=== PATIENT | female | born 1955 | race Caucasian/White ===

== ENCOUNTER 2023-02-19 12:55 | Outpatient (CLI) | payer OTHER, SELFPAY ==
--- NOTE | 2023-02-19 13:00 | CRLHL7_ITS ---
For Patients: As a result of the Century Cures Act, medical imaging exams and procedure reports are released immediately into your electronic medical record. You may view this report before your referring provider. If you have questions, please contact your health care provider. Indication: Left 5th bunionette deformity. Technique: Left foot three views. Comparison: Left foot radiographs 09/12/2018. Findings: Prior resection of the lateral head of the 5th metatarsal. Mild to moderate degenerative changes greatest in the midfoot. Calcaneal enthesophytes. No discrete lytic or erosive osseous changes. No acute or other osseous abnormality. Soft tissues as imaged are unremarkable. Impression: Left foot degenerative changes greatest in the midfoot. Dictated by Carlos Queen MD @ 02/19/2023 9:07:58 PM (Electronically Signed)
--- NOTE | 2023-02-19 13:15 | CRLHL7_ITS ---
For Patients: As a result of the Century Cures Act, medical imaging exams and procedure reports are released immediately into your electronic medical record. You may view this report before your referring provider. If you have questions, please contact your health care provider. Indication: Right foot suspected rheumatoid nodule. Technique: Right foot three views. Comparison: 09/12/2018. Findings: Stable appearing bunionectomy changes with hardware in the distal 1st metatarsal. Alignment of the 1st metatarsal phalangeal joint is unchanged. Mild to moderate degenerative changes greatest at the 1st metatarsophalangeal joint and midfoot. Calcaneal enthesophytes. No discrete lytic or erosive osseous changes. No acute or other osseous abnormality. Soft tissues as imaged are unremarkable. Impression: Right foot degenerative changes. Dictated by Carlos Queen MD @ 02/19/2023 9:06:18 PM (Electronically Signed)
== END 2023-02-19 12:56 | disposition home or self-care (01) ==
PROVIDERS: PCP Family Medicine; Visit Provider Podiatrist
DX: M21.622 Bunionette of left foot (principal); M79.9 Soft tissue disorder, unspecified
CPT/HCPCS: 73630

== ENCOUNTER 2023-06-04 09:25 | Day surgery (SDC) | payer OTHER, SELFPAY ==
[2023-06-04] MEDS: LACTATED RINGERS 1000 ML 1,000 ML 100 ML IV (09:50)
[2023-06-04] MEDS: SODIUM CHLORIDE 0.9 % (FLUSH) 10 ML SYRINGE IVF (09:50)
[2023-06-04 09:59] VITALS: BP 189/106; PULSE 96; RESP 18; TEMP 36.6; O2SAT 95; BMI 44.1
[2023-06-04] MEDS: BUPIVACAINE 0.5% 30 ML 40 ML INJECTION (11:01)
--- NOTE | 2023-06-04 11:13 | CRLHL7_ITS ---
For Patients: As a result of the Century Cures Act, medical imaging exams and procedure reports are released immediately into your electronic medical record. You may view this report before your referring provider. If you have questions, please contact your health care provider. Indication: INTRA OP 5TH METATARSAL HEAD RESECTION Technique: Three fluoroscopic images of the left foot. Fluoroscopic time 6.7 seconds. IMPRESSION: Fluoroscopic guidance for resection of the 5th metatarsal head. Dictated by aBldev Meléndez MD @ 06/05/2023 10:41:43 AM (Electronically Signed)
--- NOTE | 2023-06-04 11:16 | SUR.OPER ---
PATIENT QUESTIONS ANSWERED SATISFACTORILY PREOPERATIVELY.? PATIENT BROUGHT TO OR #1 PER CART.? Patient positioned supine on OR #1 bed.? The perioperative?team supported arms bilaterally on arm boards.? Final approval of positioning by surgeon.
[2023-06-04 12:05] VITALS: BP 156/78; PULSE 87; RESP 16; TEMP 36.6; O2SAT 92
--- NOTE | 2023-06-04 12:08 | W.ANESCHARGE ---
Anesthesia Charges Start Date/Time Anesthesia Start Date: 06/04/23 Anesthesia Start Time: 10:55 Stop Date/Time Anesthesia Stop Date: 06/04/23 Anesthesia Stop Time: 12:09
[2023-06-04 12:15] VITALS: BP 155/103; PULSE 83; RESP 16; O2SAT 90
[2023-06-04 12:30] VITALS: BP 152/129; PULSE 76; RESP 16; O2SAT 94
[2023-06-04 12:45] VITALS: BP 168/109; PULSE 75; RESP 16; O2SAT 96
[2023-06-04 13:10] VITALS: BP 161/112; PULSE 82; RESP 16; O2SAT 95
--- NOTE | 2023-06-04 13:25 | SUR.OPER ---
SURGEON DECLINES OFFER TO SEND EXCISED TISSUE TO PATHOLOGY.
--- NOTE | 2023-06-04 13:39 | SUR.PHASEII ---
Patient tolerated water and coffee. Did not care for food. Patient verbalized readiness to be discharged and understanding of discharge instructions. Patient significant other verbalized understanding of discharged instructions. Dr. Doherty verbally acknowledged vital signs of patient, including blood pressure, and gave a verbal order for discharge to RN.
--- NOTE | 2023-06-04 14:36 | PM.PROC ---
Procedure Note Date Seen: 06/04/23 Date of procedure: 06/04/23 Will [facility] bill your pro fee for this procedure?: No Pre-op diagnosis: 1. Tailor's bunion left 2. Bunion with hallux limitus left Post-op diagnosis: same Procedure: 1. Fifth metatarsal head resection left foot 2. Cheilectomy 1st MPJ left Procedure Description: Hemostasis: Ankle tourniquet 250 mm Hg Complications: None apparent Indication for surgery: Patient is in clinic for painful left foot. She has elected to have surgical reconstruction. I reviewed the procedure, recovery, expectations and potential complications. These include but are not limited to: Poor wound healing, infection, under correction, over correction, potential need for future surgery, deep venous thrombosis, pulmonary embolism possible . She understands risks written consent was obtained. Site marked. Procedure in detail: Patient brought the operating room placed supine position on operating table. IV sedation was initiated and local anesthetic injected into the left foot. She was prepped and draped in a sterile fashion. Standard time-out protocol followed. Left foot was exsanguinated the tourniquet inflated. Linear incisions were made over the dorsal lateral aspect of the 5th metatarsal head. Incision was carried down through skin subcutaneous tissues. A linear capsule and periosteal incision made these tissues reflected away from the 5th metatarsal head. Sagittal saw was then used to resect the 5th metatarsal head. Appropriate angulation was visualized on C-arm. Metatarsal head was removed in total. Wound was thoroughly irrigated normal sterile saline. Capsular tissues repaired with 4-0 Vicryl. Subcutaneous tissue was reapproximated with 4-0 Monocryl and skin closed with 4-0 Prolene. Linear incision made over the 1st MPJ follow-up. Incisions carried down through skin subcutaneous tissues. Linear capsule incision was made. Sagittal saw and rotary bur was used to remodel the medial and dorsal medial 1st metatarsal head prominent bone removed. Wound was thoroughly irrigated normal sterile saline. C-arm confirmed appropriate resection. Capsular tissues reapproximated with 3-0 Vicryl. Subcutaneous tissues reapproximated 4-0 Monocryl and skin closed with 4-0 Prolene. Sterile dressing was applied. Tourniquet was released. Normal capillary fill time returned all digits. Patient was transferred from OR to same day with vital signs stable and vascular status intact. She was discharged per Anesthesia. She was given both written and verbal postop instructions. She is given oxycodone for pain. She will follow-up in 2 days time. She is weight-bearing as tolerated. Anesthesia: MAC and local Surgeon: Sebastien Robles DPM FACFAS Estimated blood loss (mL): 2 Condition: stable Disposition: same day
--- NOTE | 2023-06-04 14:43 | P.PCN_ITS ---
Procedure Note Date Seen: 06/04/23 Will [facility] bill your pro fee for this procedure?: No
--- NOTE | 2023-06-04 14:43 | PM.PROC ---
Procedure Note Date Seen: 06/04/23 Will [facility] bill your pro fee for this procedure?: No
== END 2023-06-04 13:21 | disposition home or self-care (01) ==
PROVIDERS: PCP Family Medicine; Visit Provider Podiatrist
PROC: (CPT 28289; principal; 2023-06-04 11:00)
DX: M20.5X2 Other deformities of toe(s) (acquired), left foot (principal); M21.622 Bunionette of left foot; E11.9 Type 2 diabetes mellitus without complications
CPT/HCPCS: 28289; 28113; 01480; 73620; 82962; J0665; J1100; J2405; J2704; J3010; J7120

== ENCOUNTER 2024-03-31 10:49 | Inpatient (IN) | payer OTHER, SELFPAY ==
[2024-03-31] VITALS (10 sets, daily range): BP systolic 123–182; BP diastolic 77–121; PULSE 74–95; RESP 16–20; TEMP 36.3–36.8; O2SAT 92–96; BMI 44.3; BMI 44.6
--- NOTE | 2024-03-31 12:17 | CRLHL7_ITS ---
For Patients: As a result of the Century Cures Act, medical imaging exams and procedure reports are released immediately into your electronic medical record. You may view this report before your referring provider. If you have questions, please contact your health care provider. Indication: [id number] cut on the left Technique: Volumetric multidetector CT images of the head were obtained without the administration of low osmolar intravenous contrast. Comparison: None available Findings: There is no intra-axial or extra-axial fluid collection. There is no mass effect or midline shift. There is age-related cortical atrophy with mild sulcal widening and ex vacuo dilatation of the lateral ventricles. There is evolving vasogenic edema and/or loss of hancock-white differentiation within the right occipital lobe. There is moderate chronic small vessel disease change within the subcortical and periventricular white matter. The remaining brain parenchyma is preserved in attenuation and hancock-white differentiation. The orbits and their contents are grossly within normal limits. The bony calvarium is grossly intact. The paranasal sinuses are clear. The mastoid air cells are well aerated. Impression: Evolving vasogenic edema versus loss of hancock-white differentiation within the right occipital lobe for which differential considerations include an evolving subacute infarct versus a focal mass and underlying vasogenic edema. Further evaluation with contrast-enhanced MRI is recommended for improved characterization. Please note that all CT scans at this facility use dose modulation, iterative reconstruction, and/or weight-based dosing when appropriate to reduce radiation dose to as low as reasonably achievable. Dictated by Julio Cesar Griffin MD @ 03/31/2024 12:50:39 PM (Electronically Signed)
--- NOTE | 2024-03-31 12:31 | CRLHL7_ITS ---
For Patients: As a result of the Century Cures Act, medical imaging exams and procedure reports are released immediately into your electronic medical record. You may view this report before your referring provider. If you have questions, please contact your health care provider. INDICATION: Left-sided visual field cuts. TECHNIQUE: Brain MRI with and without contrast. 20 cc Dotarem gadolinium based contrast administered. COMPARISON: Head CT from 03/31/2024. FINDINGS: Patchy diffusion restriction/FLAIR hyperintensity involving the mesial temporal lobes/inferior occipital lobe, consistent with completed subacute infarction. The infarct bed measures up to 23 x 85 millimeters in axial plane. Small foci of susceptibility artifact within the right occipital lobe, compatible with a small amount of petechial hemorrhage. No mass or pathologic intracranial enhancement. Small chronic cortical infarct right parietal lobe. Patchy FLAIR hyperintensities within the supratentorial white matter, typical for chronic microvascular ischemic change. No hydrocephalus or extra-axial collections. The pituitary gland, parasellar structures and optic chiasm are normal. A tiny chronic infarct within the right medial cerebellar hemisphere. All the major intracranial vascular structures demonstrate normal flow-related signal. The orbital contents are normal. No calvarial or skull base marrow signal abnormality. No obstructive sinus disease. No extracranial soft tissue findings. IMPRESSION: 1. Large subacute infarct involving the right mesial temporal lobe/inferior occipital lobe (FRAME ALIGNER territory). Small amount of presumed petechial hemorrhage within the right occipital lobe. 2. No evidence of recent ischemia elsewhere within the brain. 3. Small chronic cortical infarct right parietal lobe. Small chronic infarct right medial cerebellar hemisphere. Mild chronic microvascular ischemic changes. Dictated by Jaren Hay MD @ 03/31/2024 1:50:35 PM (Electronically Signed)
--- OUTSIDE RECORDS SUMMARY | 2024-03-31 12:34 | XMS_ITS | Clinical Summary ---
Author Organization [facility] Address [address] [place] [address] Care Team Providers Care Switchbox Assembler Name Role Phone Radha Vasquez MD Primary Care Provider + Allergies Active Allergy Reactions Criticality Noted Date Comments Nsaids 06/15/2014 History of ulcers from taking daily advil Sulfa Antibiotics Itching 11/14/2007 Medications Medication Sig Dispensed Refills Start Date End Date Status METHOTREXATE 2.5 MG OR TABS TAKES 4 TABLETS ON SUNDAY Active calcium-vitamin D (CALTRATE) 600-400 MG-UNIT per tablet Take 1 tablet by mouth daily. Active Ascorbic Acid (VITAMIN C PO) Take 1,000 mg by mouth daily. Active magnesium 500 MG TABS Take 500 mg by mouth daily. Active multivitamin, therapeutic with minerals (MULTI-VITAMIN) TABS Take 1 tablet by mouth daily. Active Probiotic Product (PROBIOTIC DAILY PO) Take 1 capsule by mouth daily. Active gemfibrozil (LOPID) 600 MG tablet Take 600 mg by mouth 2 times daily (before meals). Active folic acid (FOLVITE) 1 MG tablet Take 1 mg by mouth daily. Active PANTOPRAZOLE SODIUM POIndications:stoma Take 40 mg by mouth 2 times daily (before meals). Indications: stoma Active raloxifene (EVISTA) 60 MG tablet Take 60 mg by mouth daily Active COMPRESSION STOCKINGSIndications: S/P knee replacement, left 1 each continuous 1 each 0 06/17/2014 Active METFORMIN HCL PO Take by mouth 2 times daily (with meals) Active Active Problems Problem Noted Date Diagnosed Date Degenerative arthritis of knee 06/15/2014 S/P total knee replacement: Right 02/04/132012 RA (rheumatoid arthritis) 02/10/2013 Pulmonary fibrosis 02/10/2013 GERD (gastroesophageal reflux disease) 3 Hyperlipidemia 02/10/2013 Overview: Diagnosis updated by automated process. Provider to review and confirm. Anemia due to blood loss, acute 02/10/2013 Physical deconditioning 02/10/2013 Arthritis of knee, right 02/04/2013 Social History Tobacco Use Types Packs/Day Years Used Date Smoking Tobacco: Former Cigarettes Q uit: 01/27/1989 Smokeless Tobacco: Never Alcohol Use Standard Drinks/Week Comments Yes 0 (1 standard drink = 0.6 oz pur e alcohol) rare Sex and Gender Information Value Date Recorded Sex Assigned at Not on file Gender Identity Not on file Sexual Orientation Not on file Last Filed Vital Signs Vital Sign Reading Time Taken Comments Blood Pressure 164/98 08/16/2017 10:45 AM LIBRARY HISTORIAN Pulse 84 09/09/2013 8:30 PM LIBRARY HISTORIAN Temperature 36.4 ??C (97.5 ??F) 08/16/2017 10:[address] Respiratory Rate 16 08/16/2017 10:45 AM LIBRARY HISTORIAN Oxygen Saturation 92% 08/16/2017 10:45 AM LIBRARY HISTORIAN Inhaled Oxygen Concentration - - Weight 107.5 kg (237 lb) 08/16/2017 7:06 AM LIBRARY HISTORIAN Height 160 cm (5' 3) 08/16/2017 7:06 AM LIBRARY HISTORIAN Body Mass Index 41.98 08/16/2017 7:06 AM LIBRARY HISTORIAN Plan of Treatment Not on file Medical Devices Implanted Type Area Senior Javascript Engineer Device Identifier Shelf Expiration Date Model / Serial / Lot Bone Cement Simplex Full Dose 6191-1-001 Implanted:Qty: 2 on 02/04/2013 by Steve Sommers MD at [facility] Right: Knee 11/05/2014 6191-1-001 / / [id number] Imp Baseplate Tibial Howm Tri 3 5520-B-300 Implanted:Qty: 1 on 02/04/2013 by Steve Sommers MD at [facility] Right: Knee 01/05/2018 5520-B-300 / / [id number] Imp Comp Femoral Howm Tri Cr Rt 3 5510-F-302 Implanted:Qty: 1 on 02/04/2013 by Steve Sommers MD at [facility] Right: Knee 09/07/2017 5510-F-302 / / ECEAL Imp Comp Patella Tri X3 Ps 29x8mm 5550-G-298 Implanted:Qty: 1 on 02/04/2013 by Steve Sommers MD at [facility] Right: Knee 07/07/2016 5550-G-298 / / [id number] Imp Insert Tibial Howm Tri 3x11mm 5530-G-311 Implanted:Qty: 1 on 02/04/2013 by Steve Sommers MD at [facility] Right: Knee 01/05/2018 5530-G-311 / / [id number] Imp Insert Tibial Howm Tri 3x09mm 5530-G-309 Implanted:Qty: 1 on 06/15/2014 by Steve Sommers MD at [facility] Left: Knee [employer] 05/14/2019 5530-G-309 / / [id number] Imp Comp Patella Strk Triathln Tri Bd W/Pa 32mm 5554-L-320 Implanted:Qty: 1 on 06/15/2014 by Stvee Sommers MD at [facility] Left: Knee [employer] 12/12/2018 5554-L-320 / / [id number] Imp Comp Fem Strk Triathln Cr Bd W/Pa Lt 3 5517-F-301 Implanted:Qty: 1 on 06/15/2014 by Steve Sommers MD at [facility] Left: Knee [employer] 03/14/2019 5517-F-301 / / [id number] #3 Tibia Implanted:Qty: 1 on 06/15/2014 by Steve Sommers MD at [facility] Left: Knee [employer] 04/14/2019 5536-B-300 / / [id number] Advance Directives For more information, please contact: [phone] * Full Code (Latest Code Status on File) Date Activated Date Inactivated Comments 06/15/2014 6:53 PM 06/18/2014 5:45 PM * Full Code Date Activated Date Inactivated Comments 02/04/2013 7:40 PM 02/08/2013 4:52 PM Care Teams Switchbox Assembler Relationship Specialty Start Date End Date Radha Vasquez MD PCP - General 10/24/07
--- OUTSIDE RECORDS SUMMARY | 2024-03-31 12:35 | XMS_ITS | Encounter Summary ---
Author Organization [facility] Address [address], [place] [address] Care Team Providers Care Pillowcase Folder Name Role Phone Radha Vasquez MD Primary Care Provider [phone] Encounter Details Date Type Department Care Team (Late st Contact Info) Description 03/12/2024 Notes/Orders Rheumatology at [address] [address] Max Lazaro MD [address] [place], [place] [id number] Social History Tobacco Use Types Packs/Day Years Used Date Smoking Tobacco: Former Cigarettes Q uit: 07/14/1990 Smokeless Tobacco: Never Alcohol Use Standard Drinks/Week Comments Yes 0 (1 standard drink = 0.6 oz pur e alcohol) Sex and Gender Information Value Date Recorded Sex Assigned at Not on file Gender Identity Not on file Sexual Orientation Not on file documented as of this encounter Plan of Treatment Upcoming Encounters Date Type Department Care Team (Late Contact Info) Description 07/30/2024 9:15 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
--- OUTSIDE RECORDS SUMMARY | 2024-03-31 12:35 | XMS_ITS | Encounter Summary ---
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) Social History Tobacco Use Types Packs/Day Years [...] (Late Contact Info) Description 07/30/2024 9:15 AM VISUAL MERCHANDISING SPECIALIST Appointment Rheumatology at [facility] [address] [address] Max Lazaro MD [address] [place] [address] documented as of this encounter Procedures Procedure Name Priority Date/Time Associated Diagnosis Comments CBC AND DIFFERENTIAL PANEL Routine 03/12/2024 10:57 AM CDT 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) CREATININE / GFR Routine 03/12/2024 10:5 7 AM CDT 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) COMPLETE BLOOD COUNT-W/DIFF Routine 03/12/2024 10:57 AM CDT 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) AST Routine 03/12/2024 10:57 AM CDT 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) documented in this encounter Results * (ABNORMAL) Complete Blood Count-W/Diff (03/12/2024 10:57 AM CDT) [facility] WBC 5.0 3.5 - 10.5 x10(9)/L 03/12/2024 11:03 AM [facility] RBC 3.99 3.90 - 5.03 x10(12)/L 03/12/2024 11:03 AM [facility] Hemoglobin 11.7(L) 12.0 - 15.5 g/dL 03/12/2024 11:03 AM [facility] HCT 37.4 34.9 - 44.5 % 03/12/2024 11:03 AM [facility] MCV 93.7 80.0 - 100.0 fL 03/12/2024 11:03 AM [facility] MCH 29.3 27.6 - 33.3 pg 03/12/2024 11:03 AM [facility] MCHC 31.3(L) 31.5 - 35.2 g/dL 03/12/2024 11:03 AM [facility] RDW 17.3(H) 11.9 - 15.5 % 03/12/2024 11:03 AM [facility] Platelets 279 150 - 450 x10(9)/L 03/12/2024 11:03 AM [facility] Neutrophil Absolute 3.3 1.7 - 7.0 10(9)/L 03/12/2024 11:03 AM [facility] Lymphocyte Absolute 1.1 1.0 - 4.8 10(9)/L 03/12/2024 11:03 AM CDT [facility] Monocyte Absolute 0.4 0.2 - 0.9 10(9)/L 03/12/2024 11:03 AM CDT [facility] Eosinophil Absolute 0.2 0.0 - 0.5 10(9)/L 03/12/2024 11:03 AM CDT [facility] Basophil Absolute 0.0 0.0 - 0.3 10(9)/L 03/12/2024 11:03 AM CDT [facility] Immature Granulocyte % 0.2 0.0 - 0.5 % 03/12/2024 11:03 AM CDT [facility] Blood Venipuncture / Unknown 03/12/2024 10:57 AM CDT 03/12/2024 10:57 AM CDT Max Lazaro MD LAB_1 Performing Organization Address [facility]/ZIP Co de Phone Number [facility] [address] [place] [address] * (ABNORMAL) AST (03/12/2024 10:57 AM CDT) AST (SGOT) 60(H) 10 - 40 U/L 03/12/2024 4:38 PM CDT [facility] Blood Venipuncture / Unknown 03/12/2024 10:57 AM CDT 03/12/2024 10:57 AM CDT Max Lazaro MD LAB_1 Performing Organization Address [facility]/ZIP Co de Phone Number [facility] [address] [place] [address] * Creatinine / GFR (03/12/2024 10:57 AM CDT) Creatinine 0.66 0.55 - 1.02 mg/dL 03/12/2024 4:38 PM T [facility] GFR, Estimated >60 >60 mL/min/1.7 3m2 03/12/2024 4:38 PM CDT [facility] Blood Venipuncture / Unknown 03/12/2024 10:57 AM CDT 03/12/2024 10:57 AM CDT Max Lazaro MD LAB_1 [facility] [address] [place] [address] documented in this encounter Visit Diagnoses Diagnosis 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
--- OUTSIDE RECORDS SUMMARY | 2024-03-31 12:35 | XMS_ITS | Clinical Summary ---
Author Organization [facility] Address [place], [place] [address] Care Team Providers Care Fern Picker Name Role Phone Radha Vasquez MD Primary Care Provider + Allergies Active Allergy Reactions Criticality Noted Date Comments Amoxicillin Nausea And Vomiting Low 10/07/2018 Raloxifene Myalgia Medium 09/06/2018 Gabapentin Myalgia Medium 07/03/2018 Nsaids (Non-Steroidal Anti-Inflammatory Drug) Stomach Upset Medium 06/15/2014 History of ulcers from taking daily advil Sulfa (Sulfonamide Antibiotics) Itching,Nausea Only Low 12/09/2008 Tolmetin Stomach Upset Low 06/15/2014 History of ulcers from taking daily advil Medications Medication Sig Dispensed Refills Start Date End Date Status CALCIUM 600 + D ORAL Take one tablet by mouth every morning Active MULTI-VITAMIN ORAL None Entered Acti ve magnesium gluconate (MAGONATE) 500 mg Tab Take 1 tablet by mouth once daily. 0 3 Active folic acid 1 mg tabletIndications:R heumatoid arthritis(714.0) Take 1 tablet by mouth once daily. 90 tablet 3 6 Active diclofenac 1 % topical (VOLTAREN) gel 7 Active L. acidophilus/Bifid. animalis (DAILY PROBIOTIC ORAL) Take 1 capsule by mouth once daily. Active ascorbic acid, vitamin C, 500 mg cap Take 1,000 mg by mouth. Active NebulizerIndication s:Chronic bronchitis, unspecified chronic bronchitis type (HC) Nebulizer, disposable neb kit x 4, reuseable neb kit x 1, mask x 1, filters x 1. Frequency of use: daily; Medication: albuterol. Length of need: prn months 1 Each 2 Active leflunomide (ARAVA) 10 mg tablet 3 Active methotrexate (RHEUMATREX) 2.5 mg tablet Take 4 Tablets (10 mg) by mouth. Takes once weekly 0 3 Active albuterol (PROVENTIL) 0.083 % neb solutionIndications :Chronic bronchitis, unspecified chronic bronchitis type (HC) Inhale 3 mL (2.5 mg) via a nebulizer every 6 hours if needed for Cough 1st choice. 180 mL 3 Active finasteride (Proscar) 5 mg tablet Take 5 mg by mouth once daily. Active famotidine (PEPCID) 20 mg tabletIndications:G astric reflux Take 1 Tablet (20 mg) by mouth two times daily. 180 Tablet 3 4 Active fluticasone (50 mcg per actuation) nasal solution (FLONASE)Indication s:Environmental allergies Inhale 1 [place] to both nostrils once daily. 9.9 mL 3 4 Active fluticasone propion-salmeteroL (Advair Diskus) 250-50 mcg/Dose diskus inhalerIndications: Moderate persistent asthma without complication Inhale 1 Puff by mouth every 12 hours. 180 Each 4 4 Active gemfibroziL (LOPID) 600 mg tabletIndications:H yperlipidemia, unspecified hyperlipidemia type Take 1 Tablet (600 mg) by mouth two times daily before meals. 180 Tablet 4 4 Active pantoprazole (Protonix) 40 mg delayed-release tabletIndications:G astric reflux Take 1 Tablet (40 mg) by mouth two times daily before meals. 180 Tablet 3 4 Active valACYclovir (VALTREX) 1 gram tabletIndications:C old sore TAKE 2 TABLETS AT ONSET OF COLD SORE, REPEAT 2 TABLETS IN 12 HOURS. REPEAT FOR EACH NEW FLARE. 16 Tablet 5 4 Active pantoprazole (PROTONIX) 40 mg delayed-release tabletIndications:G astric ulcer, unspecified chronicity, unspecified whether gastric ulcer hemorrhage or perforation present Take 1 Tablet (40 mg) by mouth two times daily before meals. Take 30-60 minutes before a meal/food twice a day. 180 Tablet 4 Active losartan (COZAAR) 100 mg tabletIndications:H TN (hypertension) Take 1 tablet by mouth once daily 90 Tablet 1 4 Active losartan (COZAAR) 100 mg tabletIndications:H TN (hypertension) Take 1 Tablet (100 mg) by mouth once daily. 90 Tablet 3 3 03/09/20 24 Discontinued Active Problems Problem Noted Date Diagnosed Date Acute gastric ulcer without hemorrhage or perfor ation 09/26/2023 Overview (09/26/2023): EGD 09/2023 superficial gastric ulcer, likely NSAID induced, try pantoprazole twice daily for 3 months Chronic bronchitis, unspecified chronic bronchit is type 09/06/2023 Deformity of right foot 07/02/2023 HTN (hypertension) 04/10/2022 Depression, recurrent 09/01/2021 Morbid obesity with BMI of 45.0-49.9, adult 08/16 Type 2 diabetes mellitus wit hout complication, without long-term current use of insulin 01/16/2021 Peripheral polyneuropathy 08/30/2019 Rheumatoid arthritis with positive rheumatoid fa ctor 06/11/2015 Pulmonary hypertension 01/07/2012 Overview (01/07/2012): Diagnosis on echo in 2007 by pulmonary. Graded at moderate to severe Family history of colon cancer 12/15/2010 Overview (09/01/2021): Colonoscopy in 2008 was normal except for diverticulosis. Patient unable to tolerate colonoscopy. Doing stool based testing. Osteopenia 12/15/2010 Overview (12/15/2010): BMD scan 2005 left hip: -1.12; spine -0.93 Unspecified sleep apnea 12/09/2009 Overview (10/24/2017): Severe at time of her original sleep study of 11/2007. Unable to tolerate the CPAP or mouth guards Gastric reflux 12/08/2009 Other and unspecified hyperlipidemia 12/08/2009 Advanced care planning/counseling discussion Overview (09/01/2021): Working on ACD--most important thing for her is to be able to interact with her family. She would want her daughter and to make a decision as primary decision maker. She would want a trial of intubation if serious lung illness. Resolved Problems Problem Noted Date Diagnosed Date Resolved Date Iron deficiency anemia due t o chronic blood loss 04/12/2022 09/07/2022 Diabetic peripheral neuropathy 08/30/2020 08/30/2020 Pulmonary fibrosis 08/30/2020 Morbid obesity with BMI of 40.0-44.9, adult 04/27/2017 09/01/2021 Other acne 12/08/2009 09/01/2021 CVD (cardiovascular disease) 12/08/2009 12/09/2009 Overview (12/08/2009): fhx Rheumatoid arthritis(714.0) 12/08/2009 06/11/2015 Encounters Date Type Department Care Team Description 03/31/2024 Nurse Triage [address] [address] Radha Vasquez MD Eye Problem 03/31/[address] [id number] Radha Vasquez MD 03/06/[address] [address] Radha Vasquez MD Refill Request (Losartan) from Last 3 Months Immunizations Name Administration Dates Next Due AMB Influenza, IIV4 PF (=>6 mos Flulaval,Fluzone Fluarix)(Flu Clinic Only) 04/19/2017 COVID-19 vaccine (Moderna 50 mcg/0.5mL) 12YO+ BIVALENT PF, MDV 04/10/2022 COVID-19 vaccine (KochAbo-Bio NTech 30mcg/0.3mL) PF, MDV 09/17/2020 Hepatitis A (Adult) 06/02/2008,11/29/2007 Influenza, High-dose Inactivated 03/31/2022 Influenza, High-dose Quadriv alent Inactivated 03/29/2023,03/29/2021 Influenza, IIV3 (Age >=3 years) 06/02/20 13,05/30/2012,06/14/2011,09/15 Influenza, IIV4 04/19/2017, 6,06/03/2015,05/30 Influenza, Inactivated AIIV4 (Age 65+ Years) Preserv Free 03/31/2022 Influenza, Inactivated IIV3 (Age 65+ Years) Preserv Free 03/29/2020,03/26/2019,03/29/2018 Pneumococcal Poly,23-Valent (Pneumovax) 04/21/2019,12/04/2008 Pneumococcal conj 13-Valent (Prevnar 13) 03/29/2018 RSV, Recombinant ADJ Reconst ituted (Arexvy 120MCG/0.5mL) 03/29/2023 Td (Age >=7 Years) 11/07/2005,05/28/1996 Tdap 11/13/2022,12/27/2012 Tuberculin (PPD) 09/23/2001 Tuberculin Skin Test, Unspecified 02/08/2013 Zoster (Shingrix-RZV, recombinant) 03/29/2018, Zoster (Zostavax-ZVL, live) 05/30/2012 Family History Medical History Relation Name Comments Alcohol/Drug Brother Canelo EtOH - still dr patel Good Health Brother Canelo Blood Disease Daughter Alissa blood clot Good Health Daughter Alissa Alcohol/Drug Father Heart Disease Father Diabetes Maternal Grandfather Diabetes Maternal Grandmother Atrial fibrillation Mother Cancer-colon Mother 2005; remission Alcohol/Drug Sister 1 Jerri Etoh--in remiss ion Cancer Sister 1 Jerri Cancer-breast Sister 1 Jerri premenopausal Alcohol/Drug Sister 2 Floridalma EtOHic tx; panc reatitis Other Sister 2 Floridalma RA Cancer-breast Sister 3 Cassandra small; confine d Good Health Sister 3 Cassandra Other Sister 3 Cassandra autoimmune nerv e issues Cancer Sister 4 Jessi cancer Other Sister 4 Jessi 60s head & face surgery Alcohol/Drug Sister 5 Sis EtOHic in [place] Good Health Sister 5 Sis Alcohol/Drug Son 1 Jair drinking Good Health Son 1 Jair Blood Disease Son 2 Talib blood clot Good Health Son 2 Talib Good Health Son 3 Carlos Relation Name Status Comments Brother Canelo Alive Daughter Alissa Alive Father (Age 70's) [place] Maternal Grandfather Maternal Grandmother Mother Alive Paternal Grandfather Paternal Grandmother Sister 1 Jerri Alive Sister 2 Floridalma Alive Sister 3 Cassandra Alive Sister 4 Jessi Sister 5 Sis Alive Son 1 Jair Alive Son 2 Talib Alive Son 3 Carlos Alive Social History Tobacco Use Types Packs/Day Years Used Date Smoking Tobacco: Former Cigarettes 1 10 0 07/16/1979 - 07/16/1989 Smokeless Tobacco: Never Tobacco Cessation:Counseling Given: Yes Alcohol Use Standard Drinks/Week Comments Yes 0 (1 standard drink = 0.6 oz pur e alcohol) occasional PHQ-2 Answer Date Recorded PHQ-2 TOTAL SCORE 1 09/06/2023 Social Connections Answer Date Recorded Frequency of Communication with Friends and Fami ly Not on file 09/05/2023 Financial Resource Strain Answer Date R ecorded Difficulty of Paying Living Expenses 3 09/04/2022 Difficulty of Paying Living Expenses Not on file 09/04/2022 Food Insecurity Answer Date Recorded Worried About Running Out of Food in the Last Ye ar 1 09/04/2022 Transportation Needs Answer Date Record ed Lack of Transportation (Medical) 1 09/04/2022 Housing Stability Answer Date Recorded Unable to Pay for Housing in the Last Year 1 09/04/2022 Sex and Gender Information Value Date Recorded Sex Assigned at Not on file Gender Identity Not on file Sexual Orientation Not on file Obstetrics History Para Term AB IAB SAB Ectopic Multiple Livin g Live Births 4 4 4 Date Outcome GA Total Labor Labor/2nd/3rd Weight Sex Type Anes PTL Anna A1 A5 Name Clin Term Term Term Term Last Filed Vital Signs Vital Sign Reading Time Taken Comments Blood Pressure 129/70 09/21/2023 8:48 AM ON AIR TALENT Pulse 77 09/21/2023 8:48 AM ON AIR TALENT Temperature 36.6 ??C (97.9 ??F) 07/31/2023 2:34 PM CS T Respiratory Rate 16 09/21/2023 8:48 AM ON AIR TALENT Oxygen Saturation 95% 09/21/2023 8:48 AM ON AIR TALENT Inhaled Oxygen Concentration - - Weight 114.1 kg (251 lb 8 oz) 09/06/2023 11:08 A M ON AIR TALENT Height 160 cm (5' 3) 09/06/2023 11:08 AM ON AIR TALENT Body Mass Index 44.55 09/06/2023 11:08 AM ON AIR TALENT Plan of Treatment Health Maintenance Due Date Last Done Comments Hepatitis C screening for ag e 18-79 1973 COVID-19 vaccine series (2022- season) 2024 05/02/2023, 11/13/2022, 04/10/2022, Additional history exists Influenza for age 65+ 03/16/2024 03/29/2023 , 03/31/2022, 03/31/2022, Additional history exists BMI (ht and wt on same day) for age 18+ 09/06/2024 09/06/2023, 07/02/2023, 05/16/2023, Additional history exists Medicare Wellness for age 65+ 09/06/2024, 09/04/2022, 09/01/2021, Additional history exists Depression screening for age 12+ 09/07/2024 09/07/2023, 09/06/2023, 09/04/2022, Additional history exists Mammogram for age 45-75 09/13/2024 09/14/19, 09/11/2022, 09/08/2021, Additional history exists Fecal testing sDNA-FIT (Cologuard) for age 45-75 09/19/2026 09/20/2023, 12/05/2017 Lipids for age 45-75 09/06/2028 09/06/2023, 02/12/2023, 04/10/2022, Additional history exists Tetanus booster 11/13/2032 11/13/2022, 12/14, 11/07/2005, Additional history exists Zoster (shingles) series for age 50+ Completed 03/29/2018, 11/27/2017, 05/30/2012 Pneumococcal series for age 65+ Completed 04/21/2019, 03/29/2018, 12/04/2008 Fecal testing non-DNA (FIT,FOBT,iFOBT) for age 45-75 Discontinued 04/22/2022, 02/18/2021 Tdap Completed 11/13/2022, 12/27/2012 DEXA/DXA scan for age 65+ Completed 2023, 04/03/2018, 03/27/2016, Additional history exists Medical Devices Implanted Type Area Carpet Installation Specialist Device Identifier Shelf Expiration Date Model / Serial / Lot Sljose luis Minijeaneth - [id number] Implanted:Qty: 1 on 12/15/2008 at [facility] 10/22/2011 [id number] / / [id number] Description:IMPLANTED MID-UR ETHRA Arthrex Screw Implanted:Qty: 1 on 07/13/2023 by Sebastien Robles DPM at [facility] Right: Foot [employer] [id number] / / Procedures Procedure Name Priority Date/Time Associated Diagnosis Comments SDNA-FIT EXTERNAL (COLOGUARD) Routine 09/20/2023 6:00 AM ON AIR TALENT Screening for colon cancer XR MAMMO JD BILAT SCREEN Routine 09/14/2023 9:09 AM ON AIR TALENT Screening breast examination XR DXA BONE DENSITY 2 SITES AXIAL Routine 09/14/2023 8:57 AM ON AIR TALENT Osteopenia, unspecified location Post-menopausal LIPID PANEL W REFLEX MEASURED LDL Routine 09/06/2023 12:08 PM ON AIR TALENT Hyperlipidemia, unspecified hyperlipidemia type OCCULT BLOOD IFOBT STOOL Routine 04/22/2022 2:40 PM CDT Screening for colon cancer from Last 3 Months or Most Recently Relevant to Health Maintenance Results * SDNA-FIT EXTERNAL (COLOGUARD) (09/20/2023 6:00 AM ON AIR TALENT) NONINV COLON CA DNA+OCC BLD SCRN STL-IMP Negative Negative 09/26/2023 7:35 PM CDT [facility] [employer] (CLIA #:[id number]) Comment: NEGATIVE TEST RESULT. A negative Cologuard result indicates a low likelihood that a colorectal cancer (CRC) or advanced adenoma (adenomatous polyps with more advanced pre-malignant features) ??is present. The chance that a person with a negative Cologuard test has a colorectal cancer is less than 1 in 1500 (negative predictive value >99.9%) or has an ??advanced adenoma is less than ??5.3% (negative predictive value 94.7%). These data are based on a prospective cross-sectional study of 10,000 individuals at average risk for colorectal cancer who were screened with both Cologuard and colonoscopy. (Bryant Gay al, N Engl J Med 2014;370(14):1286- 1297) The normal value (reference range) for this assay is negative. COLOGUARD RE-SCREENING RECOMMENDATION: Periodic colorectal cancer screening is an important part of preventive healthcare for asymptomatic individuals at average risk for colorectal cancer. ??Following a negative Cologuard result, the [place] [employer] Society and U.S. Multi-Society Task Force screening guidelines recommend a Cologuard re-screening interval of 3 years. References: [place] [employer] Guideline for Colorectal Cancer Screening: https://www.cancer.org/cancer/sucud-ngmhnu-ejgggx/equvmwrtt-zrimvlnsg-tykuybc/ac s-rec ommendations.html.; Matti DK, Eugenio CEBALLOS, Stephanie PerdomoK, Colorectal Cancer Screening: Recommendations for Physicians and Patients from the U.S. Multi-Society Task Force on Colorectal Cancer Screening , Am J Gastroenterology 2017; 112:6940-1264. TEST DESCRIPTION: Composite algorithmic analysis of stool DNA-biomarkers with hemoglobin immunoassay. ?? Quantitative values of individual biomarkers are not reportable and are not associated with individual biomarker result reference ranges. Cologuard is intended for colorectal cancer screening of adults of either sex, 45 years or older, who are at average-risk for colorectal cancer (CRC). Cologuard has been approved for use by the U.S. FDA. The performance of Cologuard was established in a cross sectional study of average-risk adults aged 50-84. Cologuard performance in patients ages 45 to 49 years was estimated by sub-group analysis of near-age groups. Colonoscopies performed for a positive result may find as the most clinically significant lesion: colorectal cancer [4.0%], advanced adenoma (including sessile serrated polyps greater than or equal to 1cm diameter) [20%] or non- advanced adenoma [31%]; or no colorectal neoplasia [45%]. These estimates are derived from a prospective cross-sectional screening study of 10,000 individuals at average risk for colorectal cancer who were screened with both Cologuard and colonoscopy. (Imperiale T. et al, N Engl J Med 2014;370(14):9376-6773.) Cologuard may produce a false negative or false positive result (no colorectal cancer or precancerous polyp present at colonoscopy follow up). A negative Cologuard test result does not guarantee the absence of CRC or advanced adenoma (pre-cancer). The current Cologuard screening interval is every 3 years. ([place] [employer] Society and U.S. Multi-Society Task Force). Cologuard performance data in a 10,000 patient pivotal study using colonoscopy as the reference method can be accessed at the following location: www.Zitra.com/results. Additional description of the Cologuard test process, warnings and precautions can be found at www.Bujburd.Flurry. Stool specimen (specimen) (Rectum) 09/20/2023 6:00 AM ON AIR TALENT 09/21/2023 12:29 PM ON AIR TALENT Radha Vasquez MD URINE [facility] (CLIA #:[id number]) [address] [place] [address], * XR MAMMO JD BILAT SCREEN (09/14/2023 9:09 AM ON AIR TALENT) Anatomical Region Laterality Modality BREASTS, Breast Left, Breast Right Bilateral Mammography 09/14/2023 9:09 AM ON AIR TALENT Impressions 09/14/2023 12:28 PM ON AIR TALENT IMPRESSION: No evidence of malignancy. Recommend routine annual screening mammography. When performed, computer-aided detection was used in the interpretation of this study. ACR 1: Negative. A lay language report of this examination will be mailed to the patient. LIFETIME BREAST CANCER RISK ASSESSMENT SCORE: Lifetime risk of developing breast cancer is 23.5% calculated using the Carol Ann Model and information provided by the patient at the time of screening. The average lifetime risk for developing breast cancer is 12.9% for women born in the [place]. For patients with a lifetime breast cancer risk assessment score of less than 20%, annual screening mammography is recommended. For patients with a lifetime risk of greater than 20%, annual screening mammography supplemented with annual Breast MRI is recommended. Patients in this category are encouraged to discuss this recommendation with their healthcare provider to determine if Breast MRI is appropriate and if so, to obtain a referral and confirm coverage with their health insurance. Recommendations are based on the [place] [employer] Appropriateness Criteria. Patients with a BI-RADS category of 0 should follow the recommendations for further evaluation before considering supplemental screening. Narrative 09/14/2023 12:28 PM ON AIR TALENT EXAM: MAMMOGRAM SCREENING JD BILATERAL LOCATION: [facility] DATE: 09/14/2023 INDICATION: Asymptomatic. Screening Mammogram. COMPARISON: 09/11/22, 09/08/21 BREAST DENSITY: There are scattered areas of fibroglandular density. FINDINGS: Tomosynthesis craniocaudal and mediolateral oblique views were obtained. There is no evidence for spiculated masses, architectural distortion, asymmetry or suspicious calcifications. Procedure Note Angel Aguirre MD - 09/14/2023 EXAM: MAMMOGRAM SCREENING JD BILATERAL LOCATION: [facility] DATE: 09/14/2023 INDICATION: Asymptomatic. Screening Mammogram. COMPARISON: 09/11/22, 09/08/21 BREAST DENSITY: There are scattered areas of fibroglandular density. FINDINGS: Tomosynthesis craniocaudal and mediolateral oblique views were obtained. There is no evidence for spiculated masses, architectural distortion, asymmetry or suspicious calcifications. IMPRESSION: IMPRESSION: No evidence of malignancy. Recommend routine annual screening mammography. When performed, computer-aided detection was used in the interpretation of this study. ACR 1: Negative. A lay language report of this examination will be mailed to the patient. LIFETIME BREAST CANCER RISK ASSESSMENT SCORE: Lifetime risk of developing breast cancer is 23.5% calculated using the Carol Ann Model and information provided by the patient at the time of screening. The average lifetime risk for developing breast cancer is 12.9% for women born in the [place]. For patients with a lifetime breast cancer risk assessment score of less than 20%, annual screening mammography is recommended. For patients with a lifetime risk of greater than 20%, annual screening mammography supplemented with annual Breast MRI is recommended. Patients in this category are encouraged to discuss this recommendation with their healthcare provider to determine if Breast MRI is appropriate and if so, to obtain a referral and confirm coverage with their health insurance. Recommendations are based on the [place] [employer] Appropriateness Criteria. Patients with a BI-RADS category of 0 should follow the recommendations for further evaluation before considering supplemental screening. Radha Vasquez MD MAMMO * XR DXA BONE DENSITY 2 SITES AXIAL (09/14/2023 8:57 AM ON AIR TALENT) Anatomical Region Laterality Modality Spine, HIPS, HIPL, HIPR Other 09/14/2023 8:57 AM ON AIR TALENT Impressions 09/14/2023 12:03 PM ON AIR TALENT IMPRESSION: Low bone density (OSTEOPENIA). T score meets the WHO criteria for low bone density (osteopenia) at one or more measured sites. The risk of osteoporotic fracture increases approximately two-fold for each standard deviation decrease in T-score. Narrative 09/14/2023 12:03 PM ON AIR TALENT EXAM: BONE DENSITY LOCATION: [facility] DATE: 09/14/2023 INDICATION: Other specified disorders of bone density and structure. Follow-up BMD screening. DEMOGRAPHICS: Age- 68 years. Gender- Female. Menopausal status- Perimenopausal. COMPARISON: 04/03/2018 TECHNIQUE: Dual-energy x-ray absorptiometry (DXA) performed with routine technique. ?? FINDINGS: DXA RESULTS -Lumbar Spine: L1-L4: BMD: 0.866 g/cm2. T-score: -1.6. Z-score: 0.5. -RIGHT Hip Total: BMD: 0.725 g/cm2. T-score: -1.8. Z-score: -0.2. -RIGHT Hip Femoral neck: BMD: 0.636 g/cm2. T-score: -1.9. Z-score: -0.1. -LEFT Hip Total: BMD: 0.70 g/cm2. T-score: -2.0. Z-score: -0.4. -LEFT Hip Femoral neck: BMD: 0.598 g/cm2. T-score: -2.3. Z-score: -0.4. WHO T-SCORE CRITERIA -Normal: T score at or above -1 SD -Osteopenia: T score between -1 and -2.5 SD -Osteoporosis: T score at or below -2.5 SD The World Health Organization (WHO) criteria is applicable to perimenopausal females, postmenopausal females, and men aged 50 years or older. INTERVAL CHANGE -There has been a 3.0% increase in lumbar spine BMD. -There has been a 4.6% decrease in the right hip BMD. -There has been a 12.1% decrease in the left hip BMD. FRACTURE RISK -FRAX Results: The 10 year probability of major osteoporotic fracture is 22%, and of hip fracture is 5.0%, based on left femoral neck BMD. RECOMMENDATIONS Consider treatment if major osteoporotic fracture score is greater than or equal to 20%, or if the hip fracture score is greater than or equal to 3%. Procedure Note Becky Driscoll PA-C - 09/14/2023 EXAM: BONE DENSITY LOCATION: [facility] DATE: 09/14/2023 INDICATION: Other specified disorders of bone density and structure. Follow-up BMD screening. DEMOGRAPHICS: Age- 68 years. Gender- Female. Menopausal status- Perimenopausal. COMPARISON: 04/03/2018 TECHNIQUE: Dual-energy x-ray absorptiometry (DXA) performed with routine technique. FINDINGS: DXA RESULTS -Lumbar Spine: L1-L4: BMD: 0.866 g/cm2. T-score: -1.6. Z-score: 0.5. -RIGHT Hip Total: BMD: 0.725 g/cm2. T-score: -1.8. Z-score: -0.2. -RIGHT Hip Femoral neck: BMD: 0.636 g/cm2. T-score: -1.9. Z-score: -0.1. -LEFT Hip Total: BMD: 0.70 g/cm2. T-score: -2.0. Z-score: -0.4. -LEFT Hip Femoral neck: BMD: 0.598 g/cm2. T-score: -2.3. Z-score: -0.4. WHO T-SCORE CRITERIA -Normal: T score at or above -1 SD -Osteopenia: T score between -1 and -2.5 SD -Osteoporosis: T score at or below -2.5 SD The World Health Organization (WHO) criteria is applicable to perimenopausal females, postmenopausal females, and men aged 50 years or older. INTERVAL CHANGE -There has been a 3.0% increase in lumbar spine BMD. -There has been a 4.6% decrease in the right hip BMD. -There has been a 12.1% decrease in the left hip BMD. FRACTURE RISK -FRAX Results: The 10 year probability of major osteoporotic fracture is 22%, and of hip fracture is 5.0%, based on left femoral neck BMD. RECOMMENDATIONS Consider treatment if major osteoporotic fracture score is greater than or equal to 20%, or if the hip fracture score is greater than or equal to 3%. IMPRESSION: IMPRESSION: Low bone density (OSTEOPENIA). T score meets the WHO criteria for low bone density (osteopenia) at one or more measured sites. The risk of osteoporotic fracture increases approximately two-fold for each standard deviation decrease in T-score. Radha Vasquez MD DEXA * (ABNORMAL) LIPID PANEL W REFLEX MEASURED LDL (09/06/2023 12:08 PM ON AIR TALENT) [facility] CHOLESTEROL,TOTAL 195 100 - 199 mg/dL 09/06/2023 9:35 PM [facility] [place] [facility] Comment: Cholesterol, Total Reference Ranges Desirable <200 mg/dL Borderline 200-239 mg/dL High >=240 mg/dL TRIGLYCERIDES 154(H) <150 mg/dL 09/06/2023 9:35 PM ON AIR TALENT [facility] [place] [facility] HDL CHOLESTEROL 51 >40 mg/dL 9:35 PM ON AIR TALENT [facility] NON-HDL CHOLESTEROL 144 <145 mg/dl 09/06/2023 9:35 PM [facility] CHOL/HDL RATIO 3.82 <4.50 09/06/2023 9:35 PM ON AIR TALENT [facility] LDL CHOLESTEROL 113 <=130 mg/dL 09/06/2023 9:35 PM [facility] VLDL CHOLESTEROL 31(H) <=30 mg/dL 09/06/2023 9:35 PM ON AIR TALENT [facility] PROVIDER ORDERED STATUS RANDOM 09/06/2023 9:35 PM [facility] Blood BLOOD SPECIMEN / Unknown Venipuncture / Unknown 09/06/2023 12:08 PM ON AIR TALENT 09/06/2023 12:08 PM ON AIR TALENT Radha Vasquez MD CHEMISTRY [facility] [address] [place] [address], * OCCULT BLOOD IFOBT STOOL (04/22/2022 2:40 PM CDT) STOOL BLOOD ,IFOBT Negative Negative 04/26/2022 2:53 PM CDT [facility] Stool STOOL SPECIMEN / Unknown Non-Blood / Unknown 04/22/2022 2:40 PM CDT 04/26/2022 2:41 PM CDT Radha Vasquez MD LABORATORY [facility] [address] [place] [address], from Last 3 Months or Most Recently Relevant to Health Maintenance Advance Directives * Full Code (Latest Code Status on File) Date Activated Date Inactivated Comments 07/13/2023 6:36 AM 07/13/2023 1:12 PM Question Answer Comments Code Status Discussion: Reviewed Preferences * Full Code Date Activated Date Inactivated Comments 12/15/2008 3:11 PM 12/15/2008 6:22 PM * Full Code Date Activated Date Inactivated Comments 12/15/2008 12:13 PM 12/15/2008 3:11 PM * Full Code Date Activated Date Inactivated Comments 12/15/2008 12:13 PM 12/15/2008 12:13 PM Care Teams Fern Picker Relationship Specialty Start Date End Date Radha Vasquez MD PCP - General 09/27/09 [facility] [address], [place] [address] Ophthalmology Computer System Technician 09/05/21
--- OUTSIDE RECORDS SUMMARY | 2024-03-31 12:35 | XMS_ITS | Encounter Summary ---
Author Organization [facility] Address [address] [place] [address]. [place] [address] Care Team Providers Care Environmental Protection Specialist Name Role Phone Radha Vasquez MD Primary Care Provider + Encounter Details Date Type Department Care Team (Late st Contact Info) Description 05/22/2014 [facility] [address] [place] [address] Steve Sommers MD [facility] [address] [facility] [address] [place] [phone] Preoperative examination, unspecified (Primary Dx) Social History Tobacco Use Types Packs/Day Years [...] as of this encounter Plan of Treatment Not on file documented as of this encounter Results * Methicillin Resistant Staph Aureus PCR (06/04/2014 12:10 PM RAISIN WASHER) Specimen Description [facility] Methicillin Resist/Sens S. aureus PCR Negative MRSA Negative: SA Positive MRSA target DNA not detected, presumed negative for MRSA colonization or the number of bacteria present may be below the limit of detection. Staphylococcus aureus target DNA detected, presumed positive for SA colonization. A positive test does not necessarily indicate the presence of viable organisms. It is, however, presumptive for the presence of SA. ??This result does not preclude MRSA nasal colonization. FDA approved assay performed using [employer] GeneXpert(R) real-time PCR. NEG [facility] 06/04/2014 12:1 0 PM RAISIN WASHER 06/04/2014 12:25 PM RAISIN WASHER Steve Sommers MD LAB - MICRO GENERAL ORDERABLES [facility] documented in this encounter Visit Diagnoses Diagnosis Preoperative examination, unspecified- Primary documented in this encounter Care Teams Environmental Protection Specialist Relationship Specialty Start Date End Date Radha Vasquez MD PCP - General 10/24/07 documented as of this encounter
--- OUTSIDE RECORDS SUMMARY | 2024-03-31 12:35 | XMS_ITS | Clinical Summary ---
[facility] [address], [place] [address] Care Team Providers Care Panel Fitter Name Role Phone Radha Vasquez MD Primary Care Provider [phone] Source Comments You are receiving this document as you are listed as the primary care provider,follow-up provider, or the patient has been referred to you for consultation.This is in compliance with the Medicare and[facility] EHR Incentive Program,which states Providers who transition their patient to another setting of careor provider of care or refers their patient to another provider of care shouldprovide summary care record for each transition of care or referral. [employer] Allergies Active Allergy Reactions Criticality Noted Date Comments Amoxicillin Nausea And Vomiting 10/07/2018 Raloxifene 10/07/2018 Gabapentin Medium 07/03/2018 Nsaids 06/15/2014 History of ulcers from taking daily advil Sulfa Antibiotics Itching,Nausea 07/14/2015 Tolmetin 06/15/2014 Other reaction(s): Stomach Upset History of ulcers from taking daily advil Medications Medication Sig Dispensed Refills Start Date End Date Status Cholecalciferol 2000 UNITS Take by mouth. 07/14/2015 Active Magnesium Gluconate (MAGONATE) 500 (27 MG) MG Take by mouth. 07/14/2015 Active fluticasone-salm eterol (ADVAIR) 250-50 MCG/DOSE diskus inhalerIndicatio ns:ELFEGO MATT SunJul 14, 2015 2:37 PM Received from: [facility] Inhale 1 Puff. Reported on 09/11/2016 Indications: ELFEGO AMTT SunJul 14, 2015 2:37 PM Received from: [facility] 01/15/2015 Active pantoprazole (PROTONIX) 40 MG tabletIndication s:ELFEGO MATT SunJul 14, 2015 2:37 PM Received from: External Pharmacy Indications: PN: ELFEGO MATT SunJul 14, 2015 2:37 PM Received from: External Pharmacy 07/05/2015 Active gemfibrozil (LOPID) 600 MG tabletIndication s:ELFEGO MATT SunJul 14, 2015 2:37 PM Received from: [facility] Take 1 Tablet (600 mg) by mouth. Indications: ELFEGO MATT SunJul 14, 2015 2:37 PM Received from: [facility] 01/15/2015 Active Multiple Vitamins-Mineral s (MULTIVITAMIN ADULT OR) Take 1 tablet by mouth daily (every 24 hours). 07/14/2015 Active ascorbic acid (VITAMINC) 500 MG tablet Take 1 Tablet (500 mg) by mouth daily. Reported on 09/11/2016 07/14/2015 Active CALCIUM CARBONATE-VITAMI N D OR Take 1 tablet by mouth 2 times daily (with meals). 07/14/2015 Active Probiotic Product (PROBIOTIC OR) 1 Cap daily. Active diclofenac (VOLTAREN) 1 % gel Apply 2 g to skin 4 times daily as needed for Other (hand, knee, other joint pain). 300 g 3 10/06/2019 Active losartan (COZAAR) 25 MG tablet Take 1 Tablet (25 mg) by mouth daily. 09/01/2021 Active famotidine (PEPCID) 20 MG tablet Take 1 Tablet (20 mg) by mouth two times a day. 09/09/2021 Active finasteride (PROSCAR) 5 MG tablet Take 1 Tablet (5 mg) by mouth daily. Active minoxidil (LONITEN) 2.5 MG tablet Take 1 Tablet (2.5 mg) by mouth daily. 10/16/2023 Active leflunomide (ARAVA) 10 MG tabletIndication s:Rheumatoid Arthritis Take 1 Tablet (10 mg) by mouth daily. Indications: Rheumatoid Arthritis 90 Tablet 3 10/24/2023 Active folic acid 1 MG tablet Take 1 Tablet (1 mg) by mouth daily. 90 Tablet 3 10/24/2023 Active methotrexate 2.5 MG tabletIndication s:Rheumatoid Arthritis Take 2 Tablets (5 mg) by mouth once every week. Indications: Rheumatoid Arthritis 03/12/2024 Active methotrexate 2.5 MG tabletIndication s:Rheumatoid Arthritis Take 4 Tablets (10 mg) by mouth once every week. 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 04/19/2022 Sweating abnormality 04/07/2020 Leg edema, left 04/07/2020 Pulmonary arterial hypertension 10/07/2018 ARANDA (dyspnea on exertion) 10/07/2018 Pain in both feet 10/07/2018 Rheumatoid nodule 07/03/2018 Pain of left heel 12/03/2017 assisted current use of therapeutic drug 2017 Vitamin D deficiency 12/04/2016 Trigger finger, right middle finger 12/04/2016 S/p total knee replacement, bilateral 09/11/2016 Type 2 diabetes mellitus without complication Type 2 diabetes mellitus wit hout complication, without long-term current use of insulin 09/11/2016 Metatarsalgia of right foot 09/11/2016 Chronic pain of right ankle 09/11/2016 Rheumatoid arthritis involvi ng multiple sites with positive rheumatoid factor 09/11/2016 Primary osteoarthritis of both hands 09/11/2016 Obesity 09/11/2016 BIANCA (obstructive sleep apnea) 07/14/2015 Pulmonary hypertension 07/14/2015 Gastroesophageal reflux disease with esophagitis 07/14/2015 Mild persistent asthma without complication 06/17 Pulmonary fibrosis 07/14/2015 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 Encounters Date Type Department Care Team Description 03/12/2024 10:50 AM CDT Lab Visit [facility] [address] [place] [address] 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) 03/12/2024 Notes/Orders Rheumatology at [facility] [address] [address] Max Lazaro MD from Last 3 Months Immunizations Name Administration Dates Next Due Flu Vac (3+ yrs) 06/02/2013, 2,06/14/2011,2010,06/02/2008 Flu Vac Preserv Free (3+yrs) 06/14/2011 [id number] 06/24/2009 HepA Adult (19+ yrs) 06/02/2008,11/29/2007 Influenza IIV3 (Trivalent) F luzone Highdose, 65+ Yrs (16605) 03/31/2022,03/26/2019 Influenza IIV4 (Quadrivalent ) 0.5mL (56970) 04/19/2017,05/17/2016,04/15/2016,2014,05/30/2014 Influenza IIV4 (Quadrivalent ) Fluad, 65+ Yrs 03/31/2022 Influenza IIV4 (Quadrivalent ) Fluzone, 65+ Yrs 03/29/2023,03/29/2021,03/29/2020 Influenza aIIV3 65+ Years (Fluad) 03/29/2020,05/2019,03/29/2018 Influenza, Unspecified Formulation 03/24/2020 Moderna Bivalent 12+ 04/10/2022,04/10/2022 PCV13 (Prevnar) 03/29/2018 PPSV23 (Pneumovax) 04/21/2019,12/04/2008 Pfizer Bivalent 12+ 11/13/2022 Pfizer COVID-19 12+ 05/02/2023 Pfizer Monovalent 12+ 11/09/2021 Pfizer Monovalent 12+ Purple Top 04/13/2021,09/14,09/17/2020 RSV Arexvy 03/29/2023 Td 11/07/2005,05/28/1996 Td (7+ yrs) 11/07/2005 Tdap 11/13/2022,12/27/2012 Zoster (Zostavax) 05/30/2012 Zoster RZV (Shingrix) 03/29/2018,11/27/2017 Social History Tobacco Use Types Packs/Day Years [...] Sign Reading Time Taken Comments Blood Pressure 164/88 10/24/2023 9:05 AM CDT Pulse 89 10/24/2023 9:05 AM CDT Temperature 36.2 ??C (97.1 ??F) 10/18/2022 9:31 AM CD T Respiratory Rate - - Oxygen Saturation 92% 03/31/2016 10:19 AM CDT Inhaled Oxygen Concentration - - Weight 115.7 kg (255 lb) 10/24/2023 9:05 AM CDT Height 161.3 cm (5' 3.5) 09/11/2016 1:16 PM DIRECTOR BUSINESS TRAVEL Body Mass Index 44.46 09/11/2016 1:16 PM DIRECTOR BUSINESS TRAVEL Plan of Treatment Upcoming Encounters Date Type Department Care Team (Late st Contact Info) Description 07/30/2024 9:15 AM DIRECTOR BUSINESS TRAVEL Appointment Rheumatology at [facility] [address] [address] [place], [place] [phone] Max Lazaro MD [address] [place], [place] [id number] Health Maintenance Due Date Last Done Comments Diabetes: Eye Exam 1955 Diabetes: Foot Exam 1955 Diabetes: Lipid Panel 1955 Diabetes: Urine Microalbumin 1955 MTM Covered 1955 Colon Cancer Screening Plan Due 11/08/2013 11/07/2013 Medicare Annual Wellness Visit 07/16/2023 Diabetes: HGBA1C 12/05/2023 09/06/2023, , 05/16/2023, Additional history exists COVID-19 Vaccine ( season) 2024 05/02/2023, 11/13/2022, 04/10/2022, Additional history exists Influenza (#1) 2024 03/29/2023, 03/16, 03/31/2022, Additional history exists Mammogram 09/13/2024 09/14/2023, 08/17, 09/08/2021, Additional history exists Diabetes: Creatinine 03/12/2025 03/12/2024, 10/16/2023, 05/02/2023, Additional history exists DTaP/Tdap/Td (3 - Tdap) 11/13/2032 11/14/19 23, 12/27/2012, 11/07/2005, Additional history exists HepA Completed 06/02/2008, 11/29/2007 Hep C Screening (Preventive Services) Completed 09/11/2016 Zoster/Shingles Completed 03/29/2018, 11/13, 05/30/2012 Pneumococcal 65+ Yrs Completed 04/21/2019, 03/29/2018, 12/04/2008 RSV Completed 03/29/2023 Dexa Completed 09/14/2023, 04/03/2018 HepB Aged Out No longer eligi ble based on patient's age to complete this topic Hib Aged Out No longer eligi ble based on patient's age to complete this topic IPV (Polio) Aged Out No longer eligi ble based on patient's age to complete this topic MCV4 Aged Out No longer eligi ble based on patient's age to complete this topic Procedures Procedure Name Priority Date/Time Associated Diagnosis Comments COMPLETE BLOOD COUNT-W/DIFF Routine 03/12/2024 10:57 AM CDT 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) CBC AND DIFFERENTIAL PANEL Routine 03/12/2024 10:57 AM CDT 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) AST Routine 03/12/2024 10:57 AM CDT 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) CREATININE / GFR Routine 03/12/2024 10:5 7 AM CDT 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) HEPATITIS C ANTIBODY, WITH REFLEX Routine 09/11/2016 2:21 PM DIRECTOR BUSINESS TRAVEL 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) from Last 3 Months or Most Recently Relevant to Health Maintenance Results * Creatinine / GFR (03/12/2024 10:57 AM CDT) [facility] Creatinine 0.66 0.55 - 1.02 mg/dL 03/12/2024 4:38 PM T [facility] GFR, Estimated >60 >60 mL/min/1.7 3m2 03/12/2024 4:38 PM [facility] Blood Venipuncture / Unknown 03/12/2024 10:57 AM CDT 03/12/2024 10:57 AM CDT Max Lazaro MD LAB_1 [facility] [address] [place] [address], [facility] * (ABNORMAL) Complete Blood Count-W/Diff (03/12/2024 10:57 AM CDT) [facility] WBC 5.0 3.5 - 10.5 x10(9)/L 03/12/2024 11:[address] [facility] RBC 3.99 3.90 - 5.03 x10(12)/L 03/12/2024 11:[address] [facility] Hemoglobin 11.7(L) 12.0 - 15.5 g/dL 03/12/2024 11:[address] [facility] HCT 37.4 34.9 - 44.5 % 03/12/2024 11:[address] [facility] MCV 93.7 80.0 - 100.0 fL 03/12/2024 11:[address] [facility] MCH 29.3 27.6 - 33.3 pg 03/12/2024 11:[address] [facility] MCHC 31.3(L) 31.5 - 35.2 g/dL 03/12/2024 11:[address] [facility] RDW 17.3(H) 11.9 - 15.5 % 03/12/2024 11:[address] [facility] Platelets 279 150 - 450 x10(9)/L 03/12/2024 11:[address] [facility] Neutrophil Absolute 3.3 1.7 - 7.0 10(9)/L 03/12/2024 11:[address] [facility] Lymphocyte Absolute 1.1 1.0 - 4.8 10(9)/L 03/12/2024 11:03 AM CDT [facility] Monocyte Absolute 0.4 0.2 - 0.9 10(9)/L 03/12/2024 11:03 AM CDT [facility] Eosinophil Absolute 0.2 0.0 - 0.5 10(9)/L 03/12/2024 11:03 AM T [facility] Basophil Absolute 0.0 0.0 - 0.3 10(9)/L 03/12/2024 11:03 AM T [facility] Immature Granulocyte % 0.2 0.0 - 0.5 % 03/12/2024 11:03 AM T [facility] Blood Venipuncture / Unknown 03/12/2024 10:57 AM CDT 03/12/2024 10:57 AM CDT Max Lazaro MD LAB_1 Performing Organization Address City/[facility]/ZIP Co de Phone Number [facility] [address] [place] [address] * (ABNORMAL) AST (03/12/2024 10:57 AM CDT) Pathologist [facility] AST (SGOT) 60(H) 10 - 40 U/L 03/12/2024 4:38 PM T [facility] Blood Venipuncture / Unknown 03/12/2024 10:57 AM CDT 03/12/2024 10:57 AM CDT Max Lazaro MD LAB_1 [facility] [address] [place] [address] * HCAB - Hepatitis C Virus Georgie with Reflex In-House (09/11/2016 2:21 PM DIRECTOR BUSINESS TRAVEL) Pathologist [facility] Hepatitis C Antibody Nonreactive Nonreactive PN SOFT 09/11/2016 2:21 PM DIRECTOR BUSINESS TRAVEL 09/11/2016 7:05 PM DIRECTOR BUSINESS TRAVEL Narrative PN SOFT - 09/11/2016 8:24 PM DIRECTOR BUSINESS TRAVEL Performed at [place] [address] [place] [address] CLIA number [id number] Max Lazaro MD LAB_1 PN SOFT [address] [place] [address] from Last 3 Months or Most Recently Relevant to Health Maintenance Care Teams Panel Fitter Relationship Specialty Start [place] [address] [place], [place] [phone] PCP - General 06/03/15
--- OUTSIDE RECORDS SUMMARY | 2024-03-31 12:35 | XMS_ITS | Referral Summary ---
Author Organization [facility] Address [address] [place] [address] Care Team Providers Care Edge Trimmer Mechanic Name Role Phone Radha Vasquez MD Primary [...] Comments Blood Pressure 164/98 08/16/2017 10:45 AM TOOL OR DIE DRAWING CHECKER Pulse 84 09/09/2013 8:30 PM TOOL OR DIE DRAWING CHECKER Temperature 36.4 ??C (97.5 ??F) 08/16/2017 10:[address] Respiratory Rate 16 08/16/2017 10:45 AM TOOL OR DIE DRAWING CHECKER Oxygen Saturation 92% 08/16/2017 10:45 AM TOOL OR DIE DRAWING CHECKER Inhaled Oxygen Concentration - - Weight 107.5 kg (237 lb) 08/16/2017 7:06 AM TOOL OR DIE DRAWING CHECKER Height 160 cm (5' 3) 08/16/2017 7:06 AM TOOL OR DIE DRAWING CHECKER Body Mass Index 41.98 08/16/2017 7:06 AM TOOL OR DIE DRAWING CHECKER Plan of Treatment Not on file Medical Devices Implanted Type Area Economics Teacher Device Identifier Shelf Expiration Date Model / Serial / Lot Bone Cement Simplex Full Dose 6191-1-001 Implanted:Qty: 2 on 02/04/2013 by Steve Sommers MD at [facility] Right: Knee 11/05/2014 6191-1-001 / / [id number] Imp Baseplate Tibial Howm Tri 3 5520-B-300 Implanted:Qty: 1 on 02/04/2013 by Steve Sommers MD at [facility] Right: Knee 01/05/2018 5520-B-300 / / [id number] Imp Comp Femoral Howm Tri Cr Rt 3 5510-F-302 Implanted:Qty: 1 on 02/04/2013 by Steve Sommers MD at [facility] Right: Knee 09/07/2017 5510-F-302 / / ECEAL Imp Comp Patella Tri X3 Ps 29x8mm 5550-G-298 Implanted:Qty: 1 on 02/04/2013 by Stvee Sommers MD at [facility] Right: Knee 07/07/2016 5550-G-298 / / [id number] Imp Insert Tibial Howm Tri 3x11mm 5530-G-311 Implanted:Qty: 1 on 02/04/2013 by Steve Sommers MD at [facility] Right: Knee 01/05/2018 5530-G-311 / / [id number] Imp Insert Tibial Howm Tri 3x09mm 5530-G-309 Implanted:Qty: 1 on 06/15/2014 by Steve Sommers MD at [facility] Left: Knee [employer] 05/14/2019 5530-G-309 / / [id number] Imp Comp Patella Strk Triathln Tri Bd W/Pa 32mm 5554-L-320 Implanted:Qty: 1 on 06/15/2014 by Steve Sommers MD at [facility] Left: Knee [employer] 12/12/2018 5554-L-320 / / [id number] Imp Comp Fem Strk Triathln Cr Bd W/Pa Lt 3 5517-F-301 Implanted:Qty: 1 on 06/15/2014 by Steve Sommers MD at [facility] Left: Knee [employer] 03/14/2019 5517-F-301 / / [id number] #3 Tibia Implanted:Qty: 1 on 06/15/2014 by Steve Sommers MD at [facility] Left: Knee [employer] 04/14/2019 5536-B-300 / / [id number] Advance Directives For more information, please contact: [phone] * Full Code (Latest Code Status on File) Date Activated Date Inactivated Comments 06/15/2014 6:53 PM 06/18/2014 5:45 PM * Full Code Date Activated Date Inactivated Comments 02/04/2013 7:40 PM 02/08/2013 4:52 PM Care Teams Edge Trimmer Mechanic Relationship Specialty Start Date End Date Radha Vasquez MD PCP - General 10/24/07
--- NOTE | 2024-03-31 13:48 | ED_ITS ---
HPI - Eye Problem General Date Seen: 03/31/24 Chief complaint: Eye Problems Stated complaint: dark blobs, flashing lights in vision Time Seen by Provider: 03/31/24 11:58 Source: patient Mode of arrival: ambulatory Limitations: no limitations History of Present Illness HPI Narrative: Patient is a very nice 69-year-old female presents here for evaluation of flashing lights in her eyes. She says she gets these periodically when she gets migraines, 4 days ago she developed a slight headache, with a migraine, but has persistence of these visual issues. She called the clinic today and they told her to come to the emergency room. She describes it in both eyes, to the left, when she sees, there is an area where she can see well out of. She said generally what happens is she will get this in her eyes, it will go away inch of the left with a headache over her left frontal region. She denies any numbness tingling or weakness in her arms or legs, any problems with speech, or any weakn ess associated with this. This is just atypical so this is why she is here, she denies any fevers chills or sweats associated with this she is not on any blood thinners. She gets her eye care in [place], she tells me she was borderline with glaucoma approximately 6 months ago. Location: both eyes Eye Symptoms: decreased vision and blurry vision Place: home Mechanism: none Related Data Home Medications ?Medication ?Instructions ?Recorded ?Confirmed acyclovir 800 mg tablet mg PO PRN 10/05/22 10/11/23 aspirin 81 mg tablet,delayed mg PO DAILY 10/05/22 10/11/23 release calcium carbonate 600 mg-vitamin 1 tab PO DAILY 10/05/22 03/31/24 D3 20 mcg (800 unit) tablet cholecalciferol (vitamin D3) 25 1,000 unit PO DAILY 10/05/22 03/31/24 mcg (1,000 unit) tablet fluticasone propionate 50 1 intranasal DAILY 10/05/22 10/11/23 mcg/actuation nasal spray,suspension folic acid 1 mg tablet 1 mg PO DAILY 10/05/22 03/31/24 gemfibrozil 600 mg tablet 600 mg PO 10/05/22 10/11/23 leflunomide 20 mg tablet 20 mg PO DAILY 10/05/22 10/11/23 metformin 500 mg tablet 500 mg PO 10/05/22 10/11/23 methotrexate sodium 2.5 mg tablet 2.5 mg PO .Every 7 Days 10/05/22 03/31/24 pediatric multivitamin no.29 tab PO 10/05/22 10/11/23 (Gummies [employer] Multivitamins chewable tablet) famotidine 20 mg tablet 20 mg PO BID 06/01/23 03/31/24 fluticasone 250 mcg-salmeterol 50 1 ea inhalation BID 06/01/23 03/31/24 mcg/dose blistr powdr for inhalation leflunomide 10 mg tablet 10 mg PO DAILY 06/01/23 03/31/24 losartan 100 mg tablet 100 mg PO DAILY 06/01/23 03/31/24 pantoprazole 40 mg tablet,delayed 40 mg PO BID 06/01/23 03/31/24 release valacyclovir 1 gram tablet mg PO 06/01/23 10/11/23 Previous Rx's ?Medication ?Instructions ?Recorded finasteride 5 mg tablet 5 mg PO QDAY #90 tabs 10/11/23 minoxidil 2.5 mg tablet 2.5 mg PO QDAY #90 tabs 10/11/23 Allergies Allergy/AdvReac Type Severity Reaction Status Date / Time amoxicillin Allergy Verified 03/31/24 11:14 gabapentin Allergy Verified 03/31/24 11:14 Sulfa (Sulfonamide Allergy Verified 03/31/24 11:14 Antibiotics) tolmetin Allergy Verified 03/31/24 11:14 Review of Systems Status of ROS: Reports: 10 or more systems reviewed and unremarkable except as noted in History and below [facility] Medical History Hair thinning ?L65.9 - Nonscarring hair loss, unspecified (ICD-10) HTN (hypertension) ?I10 - Essential (primary) hypertension (ICD-10) Morbid obesity ?E66.01 - Morbid (severe) obesity due to excess calories (ICD-10) Depression ?F32.A - Depression, unspecified (ICD-10) Type 2 diabetes mellitus without complications ?E11.9 - Type 2 diabetes mellitus without complications (ICD-10) Peripheral polyneuropathy ?G62.9 - Polyneuropathy, unspecified (ICD-10) Rheumatoid arthritis ?M06.9 - Rheumatoid arthritis, unspecified (ICD-10) Pulmonary hypertension ?I27.20 - Pulmonary hypertension, unspecified (ICD-10) Osteopenia ?M85.80 - Other specified disorders of bone density and structure, unspecified site (ICD-10) Sleep apnea ?G47.30 - Sleep apnea, unspecified (ICD-10) Hyperlipidemia ?E78.5 - Hyperlipidemia, unspecified (ICD-10) Gastric reflux ?K21.9 - Gastro-esophageal reflux disease without esophagitis (ICD-10) Social History Smoking Status: Former smoker How often do you have a drink containing alcohol: monthly or less How many standard drinks containing alcohol do you have on a typical day: 1 or 2 AUDIT-C Alcohol total score: 1 Non-prescribed substance use: denies use Caffeine: Yes Exam Narrative: Exam Narrative: On examination in room 4 she is in no apparent distress she is a alert oriented speaking to me normally slight elevation of her blood pressure is notable. Her pupils are equal round reactive to light she tracks normally, and there is no nystagmus, TMs are normal cranial nerves 3-12 are otherwise normal, oropharynx is normal her neck is supple full range of motion her carotid upstrokes are equal bilaterally there is no bruits noted. Sees chest is good air entry bilaterally no wheezing crackles noted heart sounds are normal no clicks murmurs or gallops her abdomen is soft she moves all extremities independently well. Fine motor movements of her hands she is right-hand dominant are normal, fingers nose testing is normal, and she is able to tandem walk for me in the room. Her pupils, are small bilaterally but what I can see of the fundi look normal. I do not see any obvious retinal detachment. She does however appear to have a field cut, in her left upper vision. Const: Vital Signs, click to edit/add: Vital Signs - 24 hr 03/31/24 11:08 03/31/24 13:45 Temperature 97.3 F L Pulse Rate [Pulse Oximeter] 95 95 Respiratory Rate 18 20 Blood Pressure [Ri ght Forearm] 179/121 H Blood Pressure [Ri ght Upper Arm] 176/97 H Pulse Oximetry 96 96 Oxygen Delivery Me thod Room Air Room Air Documenting provider has reviewed patient's vital signs: yes Course Course ED Course: Patient remains stable, her CT of her head did show evidence of a right-sided this occipital l, stroke and this was confirmed on MRI, I spoke to stroke Neurology, they think it is embolic, recommend aspirin, even though she is allergic to tolmetin she does able to take aspirin, along with ibuprofen. She will need to be admitted in that I did speak to the hospitalist Dr.Marie Newman she agreed to admit him, after he received stroke consult Consultations Consultation #1: from stroke neuro, at 2:15 p.m. Vital Signs Vital signs: Initial Vital Signs Temperature 97.3 F L 03/31/24 11:08 Temperature Source Temporal Artery Scan 03/31/24 11:08 Pulse Rate 95 03/31/24 11:08 Respiratory Rate 18 03/31/24 11:08 Blood Pressure 176/97 H 03/31/24 11:08 Blood Pressure Mean 123 H 03/31/24 11:08 Pulse Oximetry 96 03/31/24 11:08 Oxygen Delivery Method Room Air 03/31/24 11:08 Vital Signs Temperature 97.3 F L 03/31/24 11:08 Pulse Rate 95 03/31/24 11:08 Respiratory Rate 18 03/31/24 11:08 Blood Pressure 176/97 H 03/31/24 11:08 Pulse Oximetry 96 03/31/24 11:08 Oxygen Delivery Method Room Air 03/31/24 11:08 Temperature 97.3 F L 03/31/24 11:08 Pulse Rate 95 03/31/24 13:45 Respiratory Rate 20 03/31/24 13:45 Blood Pressure 179/121 H 03/31/24 13:45 Pulse Oximetry 96 03/31/24 13:45 Oxygen Delivery Method Room Air 03/31/24 13:45 Medications Administered Medications: Discontinued Medications Generic Name Dose Route Start Last Admin Trade Name Freq PRN Reason Stop Dose Admin Aspirin 324 mg 03/31/24 14:24 03/31/24 14:33 Aspirin 81 Mg Tab.Chew PO 03/31/24 14:25 324 mg ONCE ONE Administration MDM - Eye Problem MDM Narrative Medical decision making narrative: I discussed with her I am concerned about a field cut, this can be secondary to a stroke or tumor, or bleed. We will do a noncontrast CT, and I was able to follow this with an MRI, Lab Data Labs: Lab Results 03/31/24 Range/Units 14:35 WBC 5.79 (4.50-11.00) K/uL RBC 4.12 (4.00-5.20) m/uL Hgb 12.0 (12.0-16.0) gm/dL Hct 39.1 (33.0-51.0) % MCV 95 (80-100) fL MCH 29 (26-34) pg MCHC 31 L (32-36) gm/dL RDW Coeff of Danilo 18.5 H (11.5-15.5) % Plt Count 355 (140-440) K/uL Neut % (Auto) 63.7 (42.0-72.0) % Lymph % (Auto) 16.4 L (20-44) % Sabine % (Auto) 15.5 H (0.0-11.0) % Eos % (Auto) 2.8 (0.0-7.0) % Baso % (Auto) 0.9 (0.0-3.0) % Neut # (Auto) 3.69 (1.7-7.0) K/uL Lymph # (Auto) 0.90 (0.90-2.90) K/uL Sabine # (Auto) 0.90 (0.00-0.90) K/UL Eos # (Auto) 0.16 (0.00-0.50) K/uL Baso # (Auto) 0.05 (0.00-0.30) K/uL Abs Immat Gran (auto) 0.04 (0.00-0.30) K/uL Imm/Tot Granulo (auto) 0.7 % Discharge Plan Discharge Clinical Impression: Occipital stroke Patient Disposition: Admitted As Observation Condition: Stable Activity Level: Light activity Prescriptions: No Action calcium carbonate-vitamin D3 600 mg-20 mcg (800 unit) tablet 1 tab PO DAILY cholecalciferol (vitamin D3) 25 mcg (1,000 unit) tablet 1,000 unit PO DAILY fluticasone propionate 50 mcg/actuation spray,suspension 1 intranasal DAILY folic acid 1 mg tablet 1 mg PO DAILY methotrexate sodium 2.5 mg tablet 2.5 mg PO .Every 7 Days gemfibrozil 600 mg tablet 600 mg PO acyclovir 800 mg tablet PO PRN aspirin 81 mg tablet,delayed release (DR/EC) PO DAILY leflunomide 20 mg tablet 20 mg PO DAILY Gumm[employer]' Multivitamins Tablet,Chewable PO metformin 500 mg tablet 500 mg PO finasteride 5 mg tablet 5 mg PO QDAY Qty: 90 3RF minoxidil 2.5 mg tablet 2.5 mg PO QDAY Qty: 90 3RF fluticasone propion-salmeterol 250-50 mcg/dose blister with device 1 ea inhalation BID valacyclovir 1 gram tablet PO leflunomide 10 mg tablet 10 mg PO DAILY famotidine 20 mg tablet 20 mg PO BID pantoprazole 40 mg tablet,delayed release (DR/EC) 40 mg PO BID losartan 100 mg tablet 100 mg PO DAILY Follow Up/Referrals: Radha Vasquez MD [Primary Care Provider] -
[2024-03-31] MEDS: ASPIRIN 81 MG TAB.CHEW 324 MG PO (14:33)
[2024-03-31 14:49] LABS: Basophils Absolute Auto 0.05 K/uL (0.00-0.30); Basophils Percent Auto 0.9 % (0.0-3.0); Eosinophils Absolute Auto 0.16 K/uL (0.00-0.50); Eosinophils Percent Auto 2.8 % (0.0-7.0); Hematocrit 39.1 % (33.0-51.0); Immature Granulocytes Abs Auto 0.04 K/uL (0.00-0.30); Immature Granulocytes Pct Auto 0.7 %; Lymphocytes Percent Auto 16.4 % (20-44); Mean Corpuscular HGB Conc 31 gm/dL (32-36); Mean Corpuscular Hemoglobin 29 pg (26-34); Mean Corpuscular Volume 95 fL (80-100); Monocytes Percent Auto 15.5 % (0.0-11.0); Neutrophils Absolute Auto 3.69 K/uL (1.7-7.0); Neutrophils Percent Auto 63.7 % (42.0-72.0); Platelet Count* 355 K/uL (140-440); RDW Coefficient of Variation % 18.5 % (11.5-15.5); Red Blood Count 4.12 m/uL (4.00-5.20); White Blood Count* 5.79 K/uL (4.50-11.00)
[2024-03-31 14:50] LABS: Slide Review Reflex No
[2024-03-31 15:00] LABS: Troponin, Point-of-Care* 0.01 ng/ml (0.01-0.04)
[2024-03-31 15:04] LABS: Chloride* 104 mmol/L (96-114); Sodium* 139 mmol/L (135-149)
[2024-03-31 15:07] LABS: Creatinine* 0.6 mg/dL (0.5-1.5); Est. Creatinine Clearance* 42.68; Estimated Glomerular Filt Rate 96 ml/min
[2024-03-31 15:08] LABS: Anion Gap 8 mEq/L (7-15); Blood Urea Nitrogen* 15 mg/dL (7-30); Calcium* 9.3 mg/dL (8.4-10.6); Carbon Dioxide* 27 mmol/L (20-32); Glucose* 95 mg/dL (60-115)
[2024-03-31 15:15] LABS: INR 0.97 (0.91-1.10); Partial Thromboplastin Time* 28 Seconds (23-33); Prothrombin Time 13.4 Seconds
[2024-03-31 15:16] LABS: C Reactive Protein* < 0.5 mg/dL (0.5-1.0)
--- NOTE | 2024-03-31 16:19 | CRLHL7_ITS ---
For Patients: As a result of the Century Cures Act, medical imaging exams and procedure reports are released immediately into your electronic medical record. You may view this report before your referring provider. If you have questions, please contact your health care provider. DATE: 03/31/2024 CLINICAL HISTORY: Patient with focal neurological deficits. TECHNIQUE: Standard helical CT image acquisition through the intracranial circulation following intravenous administration of contrast material with bolus tracking. 2D and 3D MIP images for post-processing were performed and interpreted on an independent workstation and 3D images were permanently archived. COMPARISON: CT same day. FINDINGS: There is an acute right P3 segment occlusion. 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 The right internal carotid artery is normal. The right middle cerebral artery and its branches are normal. The right anterior cerebral artery and its branches are normal. The left internal carotid artery is normal. The left middle cerebral artery and its branches are normal. The left anterior cerebral artery and its branches are normal. The anterior communicating artery is well visualized and appears normal. The right vertebral artery and PICA are normal. The left vertebral artery and PICA are normal. The left vertebral artery is dominant. The basilar artery is patent and appears normal. The right posterior cerebral artery is normal. The left posterior cerebral artery is normal. The visualized venous structures are patent. IMPRESSION: 1. Acute right P3 segment occlusion. 2. Incidental 2mm left ophthalmic ICA aneurysm. Telehealth consultation with [facility] Neurointerventional team for enrollment in our long-term brain aneurysm surveillance program can be arranged by calling . Landon Quiros M.D. Neurointerventional Radiologist [facility] [place] Pager: Office/Appointments: [facility]: [email or web address] Please note that all CT scans at this facility use dose modulation, iterative reconstruction, and/or weight-based dosing when appropriate to reduce radiation dose to as low as reasonably achievable. Dictated by Landon Quiros MD @ 04/01/2024 12:22:20 PM (Electronically Signed)
[2024-03-31] MEDS: 0.9 % SODIUM CHLORIDE 1000 ml 1,000 ML 75 ML IV (18:00)
--- NOTE | 2024-03-31 18:52 | PC.NURSE ---
End of Shift: Patient arrived to floor about 1529, alert/oriented and independent in room. Patient hypertensive upon admission 182/99, but vitally stable, lungs clear, BS WNL, IV currently running NS at 75. Patient reports headache but tolerable, no pain meds given. Patient neuros intact, but does have vision deficit. Patient described vision deficit as black spot and squiggles. Left eye deficit seems great in left eye. Patient urinating and tolerating regular diet. Tele=NSR.
--- NOTE | 2024-03-31 19:24 | P.IMHP_ITS ---
Hospitalist- H&P: HPI History of Present Illness Time Seen by Provider: 17:00 Date Seen: 03/31/24 Chief complaint: dark blobs, flashing lights in vision Narrative: Ino Gaitan is a 69 year old female with a history of migraines with aura, rheumatoid arthritis, hypertension, and hyperlipidemia who started having right upper neck pain 5-6 days ago and then developed an aura of flashing lights in her left upper visual field along with some dark areas of her vision about 3-4 days ago. These were associated with what felt like a migraine headache. These symptoms persisted and she notes that she has had a headache 24 hours a day since it started, which is unusual. The flashing lights in her left upper visual field have also been persistent without letting up at all. She denies any focal numbness, weakness, or tingling. She has not had any speaking or swallowing difficulties. She denies ataxia. Her , Brady, is with her today as well. She denies any history of arrhythmia, but notes that her blood pressure monitor occasionally says her heartbeat is irregular. She has never had this looked into. In the emergency department she had a head CT which is abnormal and went to MRI after that. Dr. Osman from tele stroke saw her via video in the ER and has already made his recommendations via a note in the [facility]. Also of note is that Ino took all of her evening medications already. She had them in her purse and was afraid that she would miss them if she did not take them. Review of Systems Status of ROS: Reports: 10 or more systems reviewed and unremarkable except as noted in History and below [facility] Medical History (Updated 03/31/24 @ 22:59 by Mary Newman MD) Migraine with aura ?G43.109 - Migraine with aura, not intractable, without status migrainosus (ICD-10) Acute gastric ulcer without hemorrhage or perforation ?K25.3 - Acute gastric ulcer without hemorrhage or perforation (ICD-10) Chronic bronchitis ?J42 - Unspecified chronic bronchitis (ICD-10) Family history of colon cancer ?Z80.0 - Family history of malignant neoplasm of digestive organs (ICD-10) Hair thinning ?L65.9 - Nonscarring hair loss, unspecified (ICD-10) HTN (hypertension) ?I10 - Essential (primary) hypertension (ICD-10) Morbid obesity ?E66.01 - Morbid (severe) obesity due to excess calories (ICD-10) Depression ?F32.A - Depression, unspecified (ICD-10) Type 2 diabetes mellitus without complications ?E11.9 - Type 2 diabetes mellitus without complications (ICD-10) Peripheral polyneuropathy ?G62.9 - Polyneuropathy, unspecified (ICD-10) Rheumatoid arthritis ?M06.9 - Rheumatoid arthritis, unspecified (ICD-10) Pulmonary hypertension ?I27.20 - Pulmonary hypertension, unspecified (ICD-10) Osteopenia ?M85.80 - Other specified disorders of bone density and structure, unspecified site (ICD-10) Sleep apnea ?G47.30 - Sleep apnea, unspecified (ICD-10) Hyperlipidemia ?E78.5 - Hyperlipidemia, unspecified (ICD-10) Gastric reflux ?K21.9 - Gastro-esophageal reflux disease without esophagitis (ICD-10) Surgical History (Updated 03/31/24 @ 19:36 by Mary Newman MD) History of rectal surgery ?Z98.890 - Other specified postprocedural states (ICD-10) History of pubovaginal sling ?Z96.0 - Presence of urogenital implants (ICD-10) History of total left knee replacement ?Z96.652 - Presence of left artificial knee joint (ICD-10) History of total right knee replacement ?Z96.651 - Presence of right artificial knee joint (ICD-10) Status post DILEEP-BSO ?Z90.710 - Acquired absence of both cervix and uterus (ICD-10) ?Z90.722 - Acquired absence of ovaries, bilateral (ICD-10) ?Z90.79 - Acquired absence of other genital organ(s) (ICD-10) H/O foot surgery ?Z98.890 - Other specified postprocedural states (ICD-10) History of excision of lesion ?Z98.890 - Other specified postprocedural states (ICD-10) ?Z87.2 - Personal history of diseases of the skin and subcutaneous tissue (ICD-10) Hx of cholecystectomy ?Z90.49 - Acquired absence of other specified parts of digestive tract (ICD- 10) H/O esophagogastroduodenoscopy ?Z98.890 - Other specified postprocedural states (ICD-10) Hx of colonoscopy ?Z98.890 - Other specified postprocedural states (ICD-10) Family History (Updated 03/31/24 @ 19:38 by Mary Newman MD) Father Alcohol dependence Myocardial infarction Mother Atrial fibrillation Son Coagulation disorder Daughter Coagulation disorder Social History (Updated 03/31/24 @ 19:41 by Mary Newman MD) Narrative: Ino is . , Brady, is with her. Many of their children live in the area. She denies tobacco use, quit smoking in 1979, had smoked 1ppd before that. 3-4 alcoholic drinks per week. Denies recreational drug use. What is your current living situation?: I presently have a place to live Problems where you live: no known problems Problems where you live details: none In the past 12 months, utilities in danger of being shut off: no In past 12 months, lack of transportation kept you from medical appts, meetings, work, or getting things needed for daily living: no In the past 12 mos, have been you worried that your food would run out before you had money to buy more?: never true In the past 12 mos, the food you bought just didn't last and you didn't have money to buy more?: never true Highest level of school completed/degree received: high school graduate Smoking Status: Former smoker How often do you have a drink containing alcohol: 2-3 times a week Alcohol type: beer How many standard drinks containing alcohol do you have on a typical day: 1 or 2 How often do you have six or more drinks on one occasion: Never AUDIT-C Alcohol total score: 3 Non-prescribed substance use: denies use Caffeine: Yes (pot a coffee a day) How often does anyone, including family, friends and others, physically hurt you : never How often does anyone, including family, friends and others, insult or talk down to you: never How often does anyone, including family, friends and others, threaten you with harm: never How often does anyone, including family, friends and others, scream or curse at you: never service: No Meds Home Medications and Allergies Home Medications ?Medication ?Instructions ?Recorded ?Confirmed ?Type calcium carbonate 600 mg-vitamin 1 tab PO DAILY 10/05/22 03/31/24 History D3 20 mcg (800 unit) tablet cholecalciferol (vitamin D3) 25 2,000 unit PO DAILY 10/05/22 03/31/24 History mcg (1,000 unit) tablet fluticasone propionate 50 1 spray intranasal DAILY 10/05/22 03/31/24 History mcg/actuation nasal spray,suspension folic acid 1 mg tablet 1 mg PO DAILY 10/05/22 03/31/24 History gemfibrozil 600 mg tablet 600 mg PO BID 10/05/22 03/31/24 History methotrexate sodium 2.5 mg tablet 10 mg PO .Every 7 Days 10/05/22 03/31/24 History famotidine 20 mg tablet 20 mg PO BID 06/01/23 03/31/24 History leflunomide 10 mg tablet 10 mg PO DAILY 06/01/23 03/31/24 History losartan 100 mg tablet 100 mg PO DAILY 06/01/23 03/31/24 History pantoprazole 40 mg tablet,delayed 40 mg PO BID 06/01/23 03/31/24 History release valacyclovir 1 gram tablet 1,000 mg PO DAILY PRN 06/01/23 03/31/24 History albuterol sulfate 2.5 mg/3 mL 2.5 mg inhalation Q6H PRN 03/31/24 03/31/24 History (0.083 %) solution for nebulization ascorbic acid (vitamin C) 500 mg 500 mg PO DAILY 03/31/24 03/31/24 History capsule finasteride 5 mg tablet 5 mg PO DAILY 03/31/24 03/31/24 History magnesium gluconate 27 mg 27 mg PO DAILY 03/31/24 03/31/24 History magnesium (500 mg) tablet minoxidil 2.5 mg tablet 2.5 mg PO DAILY 03/31/24 03/31/24 History Allergies Allergy/AdvReac Type Severity Reaction Status Date / Time amoxicillin Allergy Verified 03/31/24 11:14 Sulfa (Sulfonamide Allergy Verified 03/31/24 11:14 Antibiotics) gabapentin AdvReac Intermediate pain Verified 03/31/24 17:19 tolmetin AdvReac Mild gastric Verified 03/31/24 19:28 ulcer Exam Narrative: Exam Narrative: General: No acute distress. Awake alert oriented x3. Morbidly obese. HEENT: Normocephalic atraumatic, pupils equally round and reactive to light and accommodation. Oropharynx clear. Mucous membranes are moist. No cervical lymphadenopathy, thyromegaly or carotid bruits. No JVD. Cardiovascular: Regular rate and rhythm. No murmurs, gallops, or rubs. Chest: No increased work of breathing. Clear to auscultation bilaterally. No crackles or wheezes. Abdomen: Bowel sounds present. Soft, nondistended, nontender. No hepatosplenomegaly or masses. Extremities: No edema, no cyanosis or clubbing. Skin: No jaundice, no pallor, no rashes. Neuro: There are no focal deficits. Romberg is negative. Gait is within normal limits. With the exception of reported flashing lights in the left upper visual matt bilaterally, cranial nerves 2-12 are intact. Extraocular movements are full. No nystagmus. No facial asymmetry. Tongue is midline. Peripheral vision and vision are grossly intact. Strength is 5/5 in all 4 extremities. Light touch sensation is intact in face body and extremities. Coordination is intact in upper and lower extremities. Const: Vital Signs, click to edit/add: Vital Signs - 24 hr 03/31/24 11:08 03/31/24 13:45 03/31/24 15:29 Temperature 97.3 F L 98.2 F Pulse Rate Pulse Rate [Pulse Oximeter] 95 95 90 Respiratory Rate 18 20 16 Blood Pressure [Ri ght Forearm] 179/121 H 182/99 H Blood Pressure [Ri ght Upper Arm] 176/97 H Pulse Oximetry 96 96 96 Oxygen Delivery Me thod Room Air Room Air Room Air 03/31/24 16:26 03/31/24 16:43 Temperature Pulse Rate 86 Pulse Rate [Pulse Oximeter] Respiratory Rate 16 Blood Pressure [Ri ght Forearm] Blood Pressure [Ri ght Upper Arm] Pulse Oximetry 96 Oxygen Delivery Me thod Room Air Hospitalist - H&P: Result Labs Labs: Short CBC 03/31/24 Range/Units 14:35 WBC 5.79 (4.50-11.00) K/uL Hgb 12.0 (12.0-16.0) gm/dL Hct 39.1 (33.0-51.0) % Plt Count 355 (140-440) K/uL BMP 03/31/24 14:35 Sodium 139 Potassium 4.0 Chloride 104 Carbon Dioxide 27 BUN 15 Creatinine 0.6 Glucose 95 Calcium 9.3 03/31/2024 EKG: Normal sinus rhythm, 87 beats per minute. Normal EKG. Ordering Physician: Jesse Freedman M.D. Date of Service: 03/31/24 Procedure(s): CT head/brain wo con Accession Number(s): [id number] cc: Radha Vasquez M.D.; Jesse Freedman M.D.~ For Patients: As a result of the Cures Act, medical imaging exams and procedure reports are released immediately into your electronic medical record. You may view this report before your referring provider. If you have questions, please contact your health care provider. Indication: Bhele-fh-pidi cut on the left Technique: Volumetric multidetector CT images of the head were obtained without the administration of low osmolar intravenous contrast. Comparison: None available Findings: There is no intra-axial or extra-axial fluid collection. There is no mass effect or midline shift. There is age-related cortical atrophy with mild sulcal widening and ex vacuo dilatation of the lateral ventricles. There is evolving vasogenic edema and/or loss of hancock-white differentiation within the right occipital lobe. There is moderate chronic small vessel disease change within the subcortical and periventricular white matter. The remaining brain parenchyma is preserved in attenuation and hancock-white differentiation. The orbits and their contents are grossly within normal limits. The bony calvarium is grossly intact. The paranasal sinuses are clear. The mastoid air cells are well aerated. Impression: Evolving vasogenic edema versus loss of hancock-white differentiation within the right occipital lobe for which differential considerations include an evolving subacute infarct versus a focal mass and underlying vasogenic edema. Further evaluation with contrast-enhanced MRI is recommended for improved characterization. Please note that all CT scans at this facility use dose modulation, iterative reconstruction, and/or weight-based dosing when appropriate to reduce radiation dose to as low as reasonably achievable. Dictated by Julio Cesar Griffin MD @ 03/31/2024 12:50:39 PM (Electronically Signed) Ordering Physician: Jesse Freedman M.D. Date of Service: 03/31/24 Procedure(s): MR head/brain wo/w con Accession Number(s): [id number] cc: Radha Vasquez M.D.; Seper,Jesse S M.D.~ For Patients: As a result of the 21st Century Cures Act, medical imaging exams and procedure reports are released immediately into your electronic medical record. You may view this report before your referring provider. If you have questions, please contact your health care provider. INDICATION: Left-sided visual field cuts. TECHNIQUE: Brain MRI with and without contrast. 20 cc Dotarem gadolinium based contrast administered. COMPARISON: Head CT from 03/31/2024. FINDINGS: Patchy diffusion restriction/FLAIR hyperintensity involving the mesial temporal lobes/inferior occipital lobe, consistent with completed subacute infarction. The infarct bed measures up to 23 x 85 millimeters in axial plane. Small foci of susceptibility artifact within the right occipital lobe, compatible with a small amount of petechial hemorrhage. No mass or pathologic intracranial enhancement. Small chronic cortical infarct right parietal lobe. Patchy FLAIR hyperintensities within the supratentorial white matter, typical for chronic microvascular ischemic change. No hydrocephalus or extra-axial collections. The pituitary gland, parasellar structures and optic chiasm are normal. A tiny chronic infarct within the right medial cerebellar hemisphere. All the major intracranial vascular structures demonstrate normal flow-related signal. The orbital contents are normal. No calvarial or skull base marrow signal abnormality. No obstructive sinus disease. No extracranial soft tissue findings. IMPRESSION: 1. Large subacute infarct involving the right mesial temporal lobe/inferior occipital lobe ([employer] territory). Small amount of presumed petechial hemorrhage within the right occipital lobe. 2. No evidence of recent ischemia elsewhere within the brain. 3. Small chronic cortical infarct right parietal lobe. Small chronic infarct right medial cerebellar hemisphere. Mild chronic microvascular ischemic changes. Dictated by Jaren Hay MD @ 03/31/2024 1:50:35 PM (Electronically Signed) Assessment and Plan Assessment and plan (1) Occipital stroke: Problem comment: - associated with flashing lights in the left upper visual matt bilaterally she has no other neurologic deficits on exam. - appreciate Dr. Osman's recommendations which include admit locally, continuous cardiac monitoring, aspirin 325 mg today (already given in the emergency department), then 81 mg daily, permissive hypertension, normal saline for hydration, TTE with bubble, CTA head and neck, lipid panel, PT OT and speech consult, frequent neuro checks, SCDs, and possible Zio patch on discharge. I have implemented these recommendations with the exception of a Zio patch. Status: Acute (2) Hyperlipidemia: Problem comment: - continue gemfibrozil - lipid panel pending Status: Chronic (3) HTN (hypertension): Problem comment: - hold losartan and minoxidil to allow for permissive hypertension. Status: Chronic (4) Type 2 diabetes mellitus without complications: Problem comment: - diet controlled. Nonfasting glucose on admission as 95. Most recent hemoglobin A1c in the [facility] was 6% on 09/06/2023. Will order a hemoglobin A1c for the morning. Status: Chronic Plan VTE prophylaxis with SCDs, TEDs, low dose enoxaparin. Monitor Hgb, patient has h/o gastric ulcer H&P: Quality Stroke Contraindication Not Initiating IV-Tpa: Not indicated (outside of window) Onset of Symptoms Date: 03/26/24
[2024-03-31] MEDS: OXYCODONE 5 MG TABLET 2.5 MG PO (20:48)
[2024-03-31] MEDS: SODIUM CHLORIDE 0.9 % (FLUSH) 10 ML SYRINGE 5 ML IVF (20:51)
[2024-04-01] VITALS (9 sets, daily range): BP systolic 148–183; BP diastolic 79–110; PULSE 77–103; RESP 18; TEMP 36.3–37; O2SAT 93–95
[2024-04-01 06:21] LABS: Basophils Percent Auto 1.2 % (0.0-3.0); Eosinophils Percent Auto 3.5 % (0.0-7.0); Hematocrit 36.7 % (33.0-51.0); Hemoglobin* 11.3 gm/dL (12.0-16.0); Lymphocytes Percent Auto 18.5 % (20-44); Mean Corpuscular HGB Conc 31 gm/dL (32-36); Mean Corpuscular Hemoglobin 29 pg (26-34); Mean Corpuscular Volume 95 fL (80-100); Monocytes Percent Auto 22.3 % (0.0-11.0); Neutrophils Percent Auto 54.5 % (42.0-72.0); Platelet Count* 307 K/uL (140-440); RDW Coefficient of Variation % 18.5 % (11.5-15.5); Red Blood Count 3.87 m/uL (4.00-5.20); White Blood Count* 4.26 K/uL (4.50-11.00)
[2024-04-01 06:22] LABS: Slide Review Reflex No
[2024-04-01 06:33] LABS: Hemoglobin A1C* 5.9 % (0-5.6)
[2024-04-01 06:34] LABS: Chloride* 107 mmol/L (96-114); Potassium* 3.8 mmol/L (3.6-5.1); Sodium* 140 mmol/L (135-149)
[2024-04-01 06:37] LABS: Anion Gap 4 mEq/L (7-15); Blood Urea Nitrogen* 13 mg/dL (7-30); Carbon Dioxide* 29 mmol/L (20-32); Cholesterol* 147 mg/dL (90-199); Creatinine* 0.6 mg/dL (0.5-1.5); Est. Creatinine Clearance* 42.68; Estimated Glomerular Filt Rate 96 ml/min
[2024-04-01 06:38] LABS: Calcium* 8.7 mg/dL (8.4-10.6); Glucose* 97 mg/dL (60-115); HDL Cholesterol* 39 mg/dL (>=50); LDL Cholesterol Calculated 79 mg/dL (<100); Triglycerides* 146 mg/dL (40-149)
--- NOTE | 2024-04-01 07:16 | PC.NURSE ---
Pt is alert and oriented x3. Afebrile. Pt reports 2-3/10 pain in back of neck and headache. Pt reports visual flashing in peripherals are still there but are less prominent. Pt has equal strength in bilateral extremities and has facial symmetry. Pt is up SBA with IV pole. Pt is voiding and tolerating a therapeutic diet. ?
[2024-04-01] MEDS: 0.9 % SODIUM CHLORIDE 1000 ml 1,000 ML 75 ML IV (07:52)
[2024-04-01] MEDS: ASCORBIC ACID 500 MG TABLET PO (09:06)
[2024-04-01] MEDS: ASPIRIN 81 MG TAB.CHEW PO (09:06)
[2024-04-01] MEDS: FOLIC ACID 1 MG TABLET PO (09:06)
[2024-04-01] MEDS: FINASTERIDE 5 MG TABLET PO (09:06)
[2024-04-01] MEDS: FAMOTIDINE 20 MG TABLET PO ×2 (09:06→20:04)
[2024-04-01] MEDS: ACETAMINOPHEN 325 MG TABLET 650 MG PO (09:12)
[2024-04-01] MEDS: gemfibroziL 600 MG TABLET PO ×2 (10:20→20:03)
[2024-04-01] MEDS: PANTOPRAZOLE 40 MG TAB PO ×2 (10:21→17:52)
--- NOTE | 2024-04-01 11:10 | P.DS_ITS ---
DS: Providers Provider Date Seen: 04/02/24 Date of admission: 04/01/24 08:55 Primary care physician: Radha Vasquez MD Admitting Clinician: Gary Goodman MD Consults: 03/31/24 16:19 Consult to Occupational Therapy [CONS] Routine Comment: Reason(s) for OT Consult:: Evaluate and Treat Any Restrictions?:: No Restrictions Consult to Speech Therapy [CONS] Routine Comment: Reason(s) for Speech Consult:: Speech/Swallowing Eval Attending Physician on discharge: SPENCER López, BHUPENDRA [facility] Hospitalist Date of Discharge: 04/02/24 DS: Diagnosis Discharge Diagnosis (1) Occipital stroke: Status: Acute Problem details: - associated with flashing lights in the left upper visual matt bilaterally she has no other neurologic deficits on exam. CT head shows Evolving vasogenic edema versus loss of hancock-white differentiation within the right occipital lobe for which differential considerations include an evolving subacute infarct versus a focal mass and underlying vasogenic edema MRI brain confirms Large subacute infarct involving the right mesial temporal lobe/inferior occipital lobe ([employer] territory). Small amount of presumed petechial hemorrhage within the right occipital lobe CTA neck shows Acute right P3 segment occlusion. Incidental 2mm left ophthalmic ICA aneurysm. Telehealth consultation with [facility] Neurointerventional team for enrollment in our long-term brain aneurysm surveillance program can be arranged by calling . Discussed with [facility], Dr. Osman. Admitted overnight for observation. Cardiac monitoring without significant abnormalities. Received aspirin 325 mg in ED and is to continue on 81 mg daily. Does have a history of gastric ulcers and GERD, neurology recommending continuing daily aspirin and monitoring. TTE with bubble (04/01) Final Impressions: 1. Normal LV size, moderately increased wall thickness in a concentric pattern, hyperdynamic global systolic function with an estimated EF of 70 - 75%. 2. Severely enlarged left atrium. 3. Right ventricular cavity size is normal, global systolic RV function is normal. 4. The aortic valve is trileaflet and sclerotic, no stenosis and mild regurgitation. 5. The mitral valve is sclerotic, mild mitral regurgitation. Mitral stenosis with moderately increased mean gradient of 8.2 mmHg at a heart rate of 83. 6. Negative bubble study. No evidence of shunting at the atrial level by color doppler assessment. 7. The ascending aorta is dilated with a maximal diameter of 4.1 cm. 8. Echo contrast was administered to enhance visualization of all left ventricular segments. No LV thrombus. Dr. Barton, I, reviewed TTE recommending consideration of anticoagulation with warfarin for probable cardioembolic stroke. Dr. Osman, Neurology, aware, recommending continuing with daily aspirin, no anticoagulation until outpatient follow-up with Cardiology if necessary. Neurology, Dr. Osman, recommendations on discharge (04/02) as follows: -Aspirin 81 mg daily -LDL goal is less than 100, no atherosclerosis on CTA therefore statin not recommended given LDL is in the 70s -Long-term systolic blood pressure goal is less than 140 -recommend 28 days of Zio patch to evaluate for atrial fibrillation -If Zio patch is negative, consider a Linq loop recorder to evaluate further for A-fib -Follow up with Neurointerventional Radiology for evaluation and management of incidental aneurysm seen on CTA. Please call [phone] to schedule an appointment. -Follow-up with [facility] stroke clinic in 1 to 2 months. Please call [phone] to schedule an appointment. -Outpatient ophthalmology visit in 2 to 3 months if desires to see if she can return to driving (2) Hyperlipidemia: Status: Chronic Problem details: Triglycerides 146, cholesterol 147, LDL 79, HDL 39 - continue gemfibrozil. Statin not recommended by Neurology given LDL is in the 70s (3) HTN (hypertension): Status: Chronic Problem details: - hold losartan and minoxidil to allow for permissive hypertension. Resumed on discharge with long-term systolic pressure goal less than 140 (4) Type 2 diabetes mellitus without complications: Status: Chronic Problem details: - diet controlled. Nonfasting glucose on admission was 95. Most recent hemoglobin A1c in the [employer] [facility] was 6% on 09/06/2023. Repeat A1c 5.9 Continued outpatient management with PCP. DS: Summary Hospital Course Hospital Course: [age] year old female was admitted to the medical floor for further workup occipital stroke. Course of care and details as noted above. Outpatient recommendations: -Aspirin 81 mg daily -LDL goal is less than 100, no atherosclerosis on CTA therefore statin not recommended given LDL is in the 70s -Long-term systolic blood pressure goal is less than 140 -28 days of Zio patch to evaluate for atrial fibrillation - with Cardiology follow-up for consideration of anticoagulation if necessary -If Zio patch is negative, consider a Linq loop recorder to evaluate further for A-fib -Follow up with Neurointerventional Radiology for evaluation and management of incidental aneurysm seen on CTA. Please call [phone] to schedule an appointment. -Follow-up with [facility] stroke clinic in 1 to 2 months. Please call [phone] to schedule an appointment. -Outpatient ophthalmology visit in 2 to 3 months if desires to see if she can return to driving NO DRIVING UNTIL FURTHER OUTPATIENT WORKUP COMPLETE Remainder of chronic medical comorbidities were monitored and managed with home medications. Status at Discharge Functional status at discharge: independent ambulation Overall status at discharge: patient is progressing back to baseline Time Spent with Patient Time attestation: Total time spent providing and/or coordinating discharge services: Time spent: Greater than 30 minutes Exam Narrative: Exam Narrative: PHYSICAL EXAM General: Pleasant, conversant, NAD Cardiovascular: RRR Pulmonary: No dyspnea Neurological: Alert, answering questions appropriately Skin: Warm, dry. Const: Vital Signs, click to edit/add: Vital Signs - 24 hr 03/31/24 13:45 03/31/24 15:29 03/31/24 16:26 Temperature 98.2 F Pulse Rate Pulse Rate [Pulse Oximeter] 95 90 Respiratory Rate 20 16 16 Blood Pressure [Ri ght Forearm] 179/121 H 182/99 H Pulse Oximetry 96 96 96 Oxygen Delivery Me thod Room Air Room Air Room Air 03/31/24 16:43 03/31/24 19:00 03/31/24 20:19 Temperature 98.0 F Pulse Rate 86 Pulse Rate [Pulse Oximeter] 74 78 Respiratory Rate 16 Blood Pressure [Ri ght Forearm] 123/99 H Pulse Oximetry 94 Oxygen Delivery Oh thod Room Air 03/31/24 23:00 03/31/24 23:26 03/31/24 23:26 Temperature 98.0 F Pulse Rate Pulse Rate [Pulse Oximeter] 91 91 Respiratory Rate 18 18 Blood Pressure [Ri ght Forearm] 142/77 H Pulse Oximetry 92 92 Oxygen Delivery Oh thod Room Air Room Air 03/31/24 23:48 04/01/24 03:05 04/01/24 03:05 Temperature 97.4 F L Pulse Rate 95 Pulse Rate [Pulse Oximeter] 84 84 Respiratory Rate 18 Blood Pressure [Ri ght Forearm] 153/79 H Pulse Oximetry 93 Oxygen Delivery Me thod Room Air 04/01/24 07:00 Temperature Pulse Rate 103 H Pulse Rate [Pulse Oximeter] Respiratory Rate Blood Pressure [Ri ght Forearm] Pulse Oximetry Oxygen Delivery Me thod DS: Data Data Completed and Pending Labs on day of discharge: Labs from last 24 hours 04/01/24 03/31/24 03/31/24 05:51 14:35 14:25 WBC 4.26 L 5.79 RBC 3.87 L 4.12 Hgb 11.3 L 12.0 Hct 36.7 39.1 MCV 95 95 MCH 29 29 MCHC 31 L 31 L RDW Coeff of Danilo 18.5 H 18.5 H Plt Count 307 355 Neut % (Auto) 54.5 63.7 Lymph % (Auto) 18.5 L 16.4 L [place] % (Auto) 22.3 H 15.5 H Eos % (Auto) 3.5 2.8 Baso % (Auto) 1.2 0.9 Neut # (Auto) 2.30 3.69 Lymph # (Auto) 0.80 L 0.90 [place] # (Auto) 0.90 0.90 Eos # (Auto) 0.10 0.16 Baso # (Auto) 0.10 0.05 Abs Immat Gran (auto) 0.00 0.04 Imm/Tot Granulo (auto) 0.0 0.7 INR 0.97 APTT 28 Sodium 140 139 Potassium 3.8 4.0 Chloride 107 104 Carbon Dioxide 29 27 Anion Gap 4 L 8 BUN 13 15 Creatinine 0.6 0.6 Estimated Creat Clear 42.68 42.68 Estimated GFR 96 96 Glucose 97 95 Hemoglobin A1c 5.9 H Calcium 8.7 9.3 C-Reactive Protein < 0.5 L Triglycerides 146 Cholesterol 147 LDL Cholesterol, Calc 79 HDL Cholesterol 39 L POC Troponin I 0.01 Imaging CTA neck: Attestation: I have reviewed the pertinent imaging results. Radiologist's impression: FINDINGS: There is an acute right P3 segment occlusion. 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 The right internal carotid artery is normal. The right middle cerebral artery and its branches are normal. The right anterior cerebral artery and its branches are normal. The left internal carotid artery is normal. The left middle cerebral artery and its branches are normal. The left anterior cerebral artery and its branches are normal. The anterior communicating artery is well visualized and appears normal. The right vertebral artery and PICA are normal. The left vertebral artery and PICA are normal. The left vertebral artery is dominant. The basilar artery is patent and appears normal. The right posterior cerebral artery is normal. The left posterior cerebral artery is normal. The visualized venous structures are patent. IMPRESSION: 1. Acute right P3 segment occlusion. 2. Incidental 2mm left ophthalmic ICA aneurysm. Telehealth consultation with [facility] Neurointerventional team for enrollment in our long-term brain aneurysm surveillance program can be arranged by calling . CTA head: Attestation: I have reviewed the pertinent imaging results. Radiologist's impression: There is an acute right P3 segment occlusion. 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 The right internal carotid artery is normal. The right middle cerebral artery and its branches are normal. The right anterior cerebral artery and its branches are normal. The left internal carotid artery is normal. The left middle cerebral artery and its branches are normal. The left anterior cerebral artery and its branches are normal. The anterior communicating artery is well visualized and appears normal. The right vertebral artery and PICA are normal. The left vertebral artery and PICA are normal. The left vertebral artery is dominant. The basilar artery is patent and appears normal. The right posterior cerebral artery is normal. The left posterior cerebral artery is normal. The visualized venous structures are patent. IMPRESSION: 1. Acute right P3 segment occlusion. 2. Incidental 2mm left ophthalmic ICA aneurysm. Telehealth consultation with [facility] Neurointerventional team for enrollment in our long-term brain aneurysm surveillance program can be arranged by calling . MRI - head: Attestation: I have reviewed the pertinent imaging results. Radiologist's impression: Patchy diffusion restriction/FLAIR hyperintensity involving the mesial temporal lobes/inferior occipital lobe, consistent with completed subacute infarction. The infarct bed measures up to 23 x 85 millimeters in axial plane. Small foci of susceptibility artifact within the right occipital lobe, compatible with a small amount of petechial hemorrhage. No mass or pathologic intracranial enhancement. Small chronic cortical infarct right parietal lobe. Patchy FLAIR hyperintensities within the supratentorial white matter, typical for chronic microvascular ischemic change. No hydrocephalus or extra-axial collections. The pituitary gland, parasellar structures and optic chiasm are normal. A tiny chronic infarct within the right medial cerebellar hemisphere. All the major intracranial vascular structures demonstrate normal flow-related signal. The orbital contents are normal. No calvarial or skull base marrow signal abnormality. No obstructive sinus disease. No extracranial soft tissue findings. IMPRESSION: 1. Large subacute infarct involving the right mesial temporal lobe/inferior occipital lobe ([employer]IC[employer] territory). Small amount of presumed petechial hemorrhage within the right occipital lobe. 2. No evidence of recent ischemia elsewhere within the brain. 3. Small chronic cortical infarct right parietal lobe. Small chronic infarct right medial cerebellar hemisphere. Mild chronic microvascular ischemic changes. CT scan - head: Attestation: I have reviewed the pertinent imaging results. Radiologist's impression: There is no intra-axial or extra-axial fluid collection. There is no mass effect or midline shift. There is age-related cortical atrophy with mild sulcal widening and ex vacuo dilatation of the lateral ventricles. There is evolving vasogenic edema and/or loss of hancock-white differentiation within the right occipital lobe. There is moderate chronic small vessel disease change within the subcortical and periventricular white matter. The remaining brain parenchyma is preserved in attenuation and hancock-white differentiation. The orbits and their contents are grossly within normal limits. The bony calvarium is grossly intact. The paranasal sinuses are clear. The mastoid air cells are well aerated. Impression: Evolving vasogenic edema versus loss of hancock-white differentiation within the right occipital lobe for which differential considerations include an evolving subacute infarct versus a focal mass and underlying vasogenic edema. Further evaluation with contrast-enhanced MRI is recommended for improved characterization. Discharge Plan Discharge Disposition: Home, Self-Care Date of Admission: 04/01/24 08:55 Attending Provider on Discharge: Venessa Brooks Primary Care Provider: Radha Vasquez Condition: Stable Anticipated Discharge Date/Time: 04/02/24 10:39 Discharge Medications: New aspirin [Children's Aspirin] 81 mg Tablet,Chewable 81 mg PO DAILY Qty: 90 0RF Continued calcium carbonate-vitamin D3 600 mg-20 mcg (800 unit) tablet 1 tab PO DAILY cholecalciferol (vitamin D3) 25 mcg (1,000 unit) tablet 2,000 unit PO DAILY fluticasone propionate 50 mcg/actuation spray,suspension 1 spray intranasal DAILY folic acid 1 mg tablet 1 mg PO DAILY methotrexate sodium 2.5 mg tablet 5 mg PO .Every 7 Days Patient Comments: patient now taking 2 tablets weekly as of 04/08 gemfibrozil 600 mg tablet 600 mg PO BID valacyclovir 1 gram tablet 1,000 mg PO DAILY PRN leflunomide 10 mg tablet 10 mg PO DAILY famotidine 20 mg tablet 20 mg PO BID pantoprazole 40 mg tablet,delayed release (DR/EC) 40 mg PO BID losartan 100 mg tablet 100 mg PO DAILY albuterol sulfate 2.5 mg /3 mL (0.083 %) solution for nebulization 2.5 mg inhalation Q6H PRN Patient Comments: Uses BID scheduled minoxidil 2.5 mg tablet 2.5 mg PO DAILY finasteride 5 mg tablet 5 mg PO DAILY ascorbic acid (vitamin C) 500 mg capsule 500 mg PO DAILY magnesium gluconate 27 mg magnesium (500 mg) tablet 27 mg PO DAILY Discharge Orders: Discharge Order (Routine); Ordered 04/02/24 Ordered By: Venessa Brooks Patient Education: Stroke (GEN) Additional Instructions: Take Aspirin 81mg daily as recommended by Neurology Your PCP will assist you in arranging the followin day [place] Outpatient appointment with Neurointerventional Radiology for evaluation and management of incidental aneurysm seen on CTA Outpatient appointment with [facility] in 1-2 months Outpatient Ophthalmology appointment in 2-3 months. NO DRIVING UNTIL FURTHER EVALUATION Activity Level: Activity as Tolerated Activity Detail: NO DRIVING UNTIL FURTHER OUTPATIENT WORK UP COMPLETED Discharge Diet: Diabetic Follow Up Appointments: Radha Vasquez MD [Primary Care Provider] - (Post hospital follow up 3-5 days. ) Forms: [employer] Info Instructions
--- NOTE | 2024-04-01 15:27 | PC.NURSE ---
[facility] [facility] Hours: 11-1500 Pt this shift calm and cooperative, alert and oriented. Pain to upper neck/head rated 1/10. IV patent. Neuro consult in room done via telehealth. Pt remained stable. HTN noted.
[2024-04-01] MEDS: PERFLUTREN LIPID MICROSPHERES 2 ML VIAL IV (16:12)
--- NOTE | 2024-04-01 17:43 | PM.EN ---
Chart Event Note Time Seen by Provider: 17:25 Date Seen: 04/01/24 Chart Event Note: I reviewed the patient's preliminary echo report which shows an EF of 76%, mitral stenosis, ascending aortic aneurysm, negative bubble, and possible thrombus versus Pap muscle. I called [facility] and spoke with Dr. Brendan Barton who had just read the echo and posted the final impressions. He recommended that we consider anticoagulation with warfarin for probable cardioembolic stroke in the setting of moderate mitral stenosis. I called [facility] to speak with Dr. Osman who had seen this patient several times in consultation this hospital stay, but he was unavailable. I briefly spoke with the stroke neurologist on-call who recommended keeping the patient yet tonight so that Dr. Osman could make recommendations again tomorrow in light of these new findings. I spoke with Ino and her , Brady about the findings and recommendation to stay overnight and possibly start warfarin. They were fine with this.
[2024-04-01] MEDS: LACTOBACILLUS ACIDOPHILUS 1 TABLET 1 TAB PO (20:53)
--- NOTE | 2024-04-01 23:22 | PC.NURSE ---
Shift unremarkable. Pt remains hypertensive. Family at bedside this evening and pt moving well with SBA. Denies pain or headache.
[2024-04-02 00:20] VITALS: BP 165/86; PULSE 84; PULSE 91; RESP 16; RESP 18; TEMP 36.3; O2SAT 91; O2SAT 95
[2024-04-02 04:21] VITALS: BP 178/96; PULSE 90; RESP 18; TEMP 36.4; O2SAT 91
[2024-04-02] MEDS: ACETAMINOPHEN 325 MG TABLET 650 MG PO (04:23)
[2024-04-02 07:00] VITALS: PULSE 83; RESP 18; O2SAT 98
--- NOTE | 2024-04-02 07:47 | PC.NURSE ---
Pt is alert and oriented x3. Afebrile. Pt reports 2/10 pain in back, pain managed with PRN medications and repositioning. Pt reports visual flashing in left eye peripheral but it is less than when she came in with and pt reports no flashing in right eye. Pt has equal strength in bilateral extremities and has facial symmetry. Pt is up ind. Pt is voiding and tolerating a therapeutic diet. ?
[2024-04-02 07:50] VITALS: BP 161/98; PULSE 83; RESP 18; TEMP 36.8; O2SAT 93
[2024-04-02 08:00] VITALS: PULSE 83
[2024-04-02] MEDS: gemfibroziL 600 MG TABLET PO (09:30)
[2024-04-02] MEDS: PANTOPRAZOLE 40 MG TAB PO (09:30)
[2024-04-02] MEDS: FINASTERIDE 5 MG TABLET PO (09:31)
--- NOTE | 2024-04-02 09:31 | NUTR.NU ---
RDN with diet education related to Heart Healthy diet order. Patient admitted for possible stroke. Past medical history includes hypertension, hyperlipidemia, and diabetes type 2. Current weight 254lb 3oz; height 5ft 3ib; BMI 45.0 kg/m2. Her weight has been stable recently. Current diet Heart Healthy. Meal intakes 100% since admit. RDN visited with patient and (Brady, designated caregiver) whom reports she enjoys the taste of salt. She adds salt to a lot of foods, including watermelon and cantaloupe. She does not follow a certain diet at home. RDN offered diet education related to Heart Healthy diet, however they declined at this time but accepted educational materials. They reported they will read the material and call with any questions they may have. Handouts provided. RDN contact information provided and encouraged patient to call with questions. RDN to follow up as needed. Also informed patient of community class opportunity related to Heart Health starting in a few weeks. Provided information on this.
[2024-04-02] MEDS: ASCORBIC ACID 500 MG TABLET PO (09:32)
[2024-04-02] MEDS: FOLIC ACID 1 MG TABLET PO (09:32)
[2024-04-02] MEDS: ASPIRIN 81 MG TAB.CHEW PO (09:33)
--- NOTE | 2024-04-02 09:49 | REH.OT ---
OT: Patient with FOOD AND DRUG RESEARCH SCIENTIST orders, however per MD in interdisciplinary rounds, FOOD AND DRUG RESEARCH SCIENTIST orders discontinued.
--- NOTE | 2024-04-02 11:07 | PC.NURSE ---
shift note: pt up indept in room. pt states GASPAR resolved. pt states she still has clustered spots in visual periphery. pt denies dizziness or problem with unsteady gait. pt denied nausea and tolerated regular diet. IV to LT AC removed intact. tele monitor reading NSR. Pt denies c.p or pressure. Reviewed dc instructions and belongings list with copies given at dc to pt. Pt home meds sent with pt at [place].
== END 2024-04-02 11:00 | disposition home or self-care (01) | DRG 64 ==
LOC: ED 15:00 → MEDSURG 15:12
PROVIDERS: Admitting Provider Family Medicine; Emergency Provider Family Medicine; PCP Family Medicine; Visit Provider Family Medicine
DX: I63.431 Cerebral infarction due to embolism of right posterior cerebral artery (principal); G93.6 Cerebral edema; I72.0 Aneurysm of carotid artery; I27.20 Pulmonary hypertension, unspecified; H53.8 Other visual disturbances; E11.42 Type 2 diabetes mellitus with diabetic polyneuropathy; Z79.84 Long term (current) use of oral hypoglycemic drugs; I10 Essential (primary) hypertension; E66.01 Morbid (severe) obesity due to excess calories; M06.9 Rheumatoid arthritis, unspecified; K21.9 Gastro-esophageal reflux disease without esophagitis; I71.21 Aneurysm of the ascending aorta, without rupture; I05.0 Rheumatic mitral stenosis; E78.5 Hyperlipidemia, unspecified; G43.109 Migraine with aura, not intractable, without status migrainosus; F32.A Depression, unspecified; Z96.0 Presence of urogenital implants
CPT/HCPCS: 36415; 70450; 70496; 70498; 70553; 80048; 80061; 83036; 84484; 85025; 85610; 85730; 86140; 93005; 93306; 96374; 97165; 99284; 99285; G0378; A9270; A9575; J7030; Q9957; Q9967

== ENCOUNTER 2024-04-04 12:03 | Emergency (ER) | payer OTHER, SELFPAY ==
[2024-04-04 12:31] VITALS: BP 156/77; PULSE 92; RESP 18; TEMP 36.6; O2SAT 91; BMI 44.3
--- NOTE | 2024-04-04 12:51 | CRLHL7_ITS ---
For Patients: As a result of the Cures Act, medical imaging exams and procedure reports are released immediately into your electronic medical record. You may view this report before your referring provider. If you have questions, please contact your health care provider. INDICATION: Trauma TECHNIQUE: Three views of right 4th toe FINDINGS/IMPRESSION: Normal alignment. No acute fracture or acute osseous abnormalities are visualized. No definite fracture seen soft tissue swelling Dictated by Tika Braxton MD @ 04/04/2024 1:36:38 PM (Electronically Signed)
--- NOTE | 2024-04-04 12:53 | ED.GENADULT ---
HPI - General Adult General Chief complaint: Extremity Pain/Injury, Lower Stated complaint: Fall - was told to come back Time Seen by Provider: 04/04/24 12:39 Source: patient Mode of arrival: ambulatory Limitations: no limitations History of Present Illness HPI narrative: 69-year-old female coming in today at the request of the nurse she was talking to at the [facility] this morning. Patient states that she received a call to discuss scheduling daily and the nurse felt of the patient was having word-finding difficulty and told her to come in for evaluation. Patient states that she fell this morning, hooking her toe on something and falling backwards onto her buttocks. She complains of pain in the 4th and 5th right toes. She denies hitting her head or losing consciousness. She denies any pain in the buttocks or pelvis. She was able to get up with the assistance of family. She has been ambulating without difficulty since. She denies feeling increased confusion. She denies increased word-finding difficulty. Patient suffered a stroke 4 days ago and was hospitalized overnight. She is on a daily aspirin. Her only obvious neurologic deficit was vision changes but she states are better than 4 days ago. states that he has not noticed any worsening confusion, word-finding difficulty or other neurologic deficits. Patient is concerned about her toes, otherwise does not have the same concerns about her neurologic status that the nurse did. Related Data Home Medications ?Medication ?Instructions ?Recorded ?Confirmed calcium carbonate 600 mg-vitamin 1 tab PO DAILY 10/05/22 03/31/24 D3 20 mcg (800 unit) tablet cholecalciferol (vitamin D3) 25 2,000 unit PO DAILY 10/05/22 03/31/24 mcg (1,000 unit) tablet fluticasone propionate 50 1 spray intranasal DAILY 10/05/22 03/31/24 mcg/actuation nasal spray,suspension folic acid 1 mg tablet 1 mg PO DAILY 10/05/22 03/31/24 gemfibrozil 600 mg tablet 600 mg PO BID 10/05/22 03/31/24 methotrexate sodium 2.5 mg tablet 5 mg PO .Every 7 Days 10/05/22 04/01/24 famotidine 20 mg tablet 20 mg PO BID 06/01/23 03/31/24 leflunomide 10 mg tablet 10 mg PO DAILY 06/01/23 03/31/24 losartan 100 mg tablet 100 mg PO DAILY 06/01/23 03/31/24 pantoprazole 40 mg tablet,delayed 40 mg PO BID 06/01/23 03/31/24 release valacyclovir 1 gram tablet 1,000 mg PO DAILY PRN 06/01/23 03/31/24 albuterol sulfate 2.5 mg/3 mL 2.5 mg inhalation Q6H PRN 03/31/24 03/31/24 (0.083 %) solution for nebulization ascorbic acid (vitamin C) 500 mg 500 mg PO DAILY 03/31/24 03/31/24 capsule finasteride 5 mg tablet 5 mg PO DAILY 03/31/24 03/31/24 magnesium gluconate 27 mg 27 mg PO DAILY 03/31/24 03/31/24 magnesium (500 mg) tablet minoxidil 2.5 mg tablet 2.5 mg PO DAILY 03/31/24 03/31/24 Previous Rx's ?Medication ?Instructions ?Recorded aspirin 81 mg chewable tablet 81 mg PO DAILY #90 tabs 04/01/24 (Children's Aspirin) Allergies Allergy/AdvReac Type Severity Reaction Status Date / Time amoxicillin Allergy Verified 03/31/24 11:14 Sulfa (Sulfonamide Allergy Verified 03/31/24 11:14 Antibiotics) gabapentin AdvReac Intermediate pain Verified 03/31/24 17:19 tolmetin AdvReac Mild gastric Verified 03/31/24 19:28 ulcer Review of Systems Status of ROS: Reports: 10 or more systems reviewed and unremarkable except as noted in History and below [facility] Medical History Migraine with aura ?G43.109 - Migraine with aura, not intractable, without status migrainosus (ICD-10) Acute gastric ulcer without hemorrhage or perforation ?K25.3 - Acute gastric ulcer without hemorrhage or perforation (ICD-10) Chronic bronchitis ?J42 - Unspecified chronic bronchitis (ICD-10) Family history of colon cancer ?Z80.0 - Family history of malignant neoplasm of digestive organs (ICD-10) Hair thinning ?L65.9 - Nonscarring hair loss, unspecified (ICD-10) HTN (hypertension) ?I10 - Essential (primary) hypertension (ICD-10) Morbid obesity ?E66.01 - Morbid (severe) obesity due to excess calories (ICD-10) Depression ?F32.A - Depression, unspecified (ICD-10) Type 2 diabetes mellitus without complications ?E11.9 - Type 2 diabetes mellitus without complications (ICD-10) Peripheral polyneuropathy ?G62.9 - Polyneuropathy, unspecified (ICD-10) Rheumatoid arthritis ?M06.9 - Rheumatoid arthritis, unspecified (ICD-10) Pulmonary hypertension ?I27.20 - Pulmonary hypertension, unspecified (ICD-10) Osteopenia ?M85.80 - Other specified disorders of bone density and structure, unspecified site (ICD-10) Sleep apnea ?G47.30 - Sleep apnea, unspecified (ICD-10) Hyperlipidemia ?E78.5 - Hyperlipidemia, unspecified (ICD-10) Gastric reflux ?K21.9 - Gastro-esophageal reflux disease without esophagitis (ICD-10) Surgical History History of rectal surgery ?Z98.890 - Other specified postprocedural states (ICD-10) History of pubovaginal sling ?Z96.0 - Presence of urogenital implants (ICD-10) History of total left knee replacement ?Z96.652 - Presence of left artificial knee joint (ICD-10) History of total right knee replacement ?Z96.651 - Presence of right artificial knee joint (ICD-10) Status post DILEEP-BSO ?Z90.710 - Acquired absence of both cervix and uterus (ICD-10) ?Z90.722 - Acquired absence of ovaries, bilateral (ICD-10) ?Z90.79 - Acquired absence of other genital organ(s) (ICD-10) H/O foot surgery ?Z98.890 - Other specified postprocedural states (ICD-10) History of excision of lesion ?Z98.890 - Other specified postprocedural states (ICD-10) ?Z87.2 - Personal history of diseases of the skin and subcutaneous tissue (ICD-10) Hx of cholecystectomy ?Z90.49 - Acquired absence of other specified parts of digestive tract (ICD-10) H/O esophagogastroduodenoscopy ?Z98.890 - Other specified postprocedural states (ICD-10) Hx of colonoscopy ?Z98.890 - Other specified postprocedural states (ICD-10) Family History Father Alcohol dependence Myocardial infarction Mother Atrial fibrillation Son Coagulation disorder Daughter Coagulation disorder Social History Narrative: Ino is . , Brady, is with her. Many of their children live in the area. She denies tobacco use, quit smoking in 1979, had smoked 1ppd before that. 3-4 alcoholic drinks per week. Denies recreational drug use. What is your current living situation?: I presently have a place to live Problems where you live: no known problems Problems where you live details: none In the past 12 months, utilities in danger of being shut off: no In past 12 months, lack of transportation kept you from medical appts, meetings, work, or getting things needed for daily living: no In the past 12 mos, have been you worried that your food would run out before you had money to buy more?: never true In the past 12 mos, the food you bought just didn't last and you didn't have money to buy more?: never true Highest level of school completed/degree received: high school graduate Smoking Status: Former smoker How often do you have a drink containing alcohol: 2-3 times a week Alcohol type: beer How many standard drinks containing alcohol do you have on a typical day: 1 or 2 How often do you have six or more drinks on one occasion: Never AUDIT-C Alcohol total score: 3 Non-prescribed substance use: denies use Caffeine: Yes (pot a coffee a day) How often does anyone, including family, friends and others, physically hurt you: never How often does anyone, including family, friends and others, insult or talk down to you: never How often does anyone, including family, friends and others, threaten you with harm: never How often does anyone, including family, friends and others, scream or curse at you: never service: No Exam Narrative: Exam Narrative: Well-nourished well-developed patient in no acute distress. Alert and oriented. Answers questions appropriately. Mood and affect are appropriate. Thoughts are goal oriented and rational. No tangential or magical thinking noted. Patient speaks in full sentences without needing to catch her breath. Speech is not slurred or pressured. Maybe 2 times during our conversation she did have a slight pause before finding her words, otherwise her speech is quite normal. HEENT: Normocephalic atraumatic. Pupils are equally round reactive to light. Extraocular muscles are intact. Conjunctivae are moist without any icterus noted. Moist mucous membranes. Posterior pharynx is normal. Neck is soft. Normal facial symmetry. Cardiovascular: Heart is regular rate and rhythm S1 and S2 are present without any murmurs. Lungs: Clear to auscultation bilaterally no wheezes rhonchi or rales are appreciated. Patient takes deep breaths without any discomfort. Abdomen: Soft and nontender nondistended with normal bowel sounds. Extremities: Bilateral lower extremities are without edema. Patient has a small hematoma over the anterolateral right lower extremity that appears fresh, no broken skin. Knees do not have abrasions. Scarring from knee replacements present. Toes have normal appearance without significant swelling with a are tender to palpation, both of the 4th and 5th toes on the right. Back: Normal appearance. There is no ecchymosis or rashes noted. She has no sacral discomfort. No pain over the cervical, thoracic or lumbar spine. Skin: Well perfused. Strength is 5/5 of the upper and lower extremities. Reflexes are 2+ and symmetric at the knees. Cranial nerves 3-12 are normal. Sepado-px-pwgn is normal. There is no nystagmus either horizontally or vertically. Const: Vital Signs, click to edit/add: Vital Signs - 24 hr 04/04/24 12:31 Temperature 97.9 F Pulse Rate [Pulse Oximeter] 92 Respiratory Rate 18 Blood Pressure [Ri ght Upper Arm] 156/77 H Pulse Oximetry 91 Oxygen Delivery Me thod Room Air Course Course ED Course: X-ray of the toes were done, this was unremarkable. Vital Signs Vital signs: Initial Vital Signs Temperature 97.9 F 04/04/24 12:31 Temperature Source Temporal Artery Scan 04/04/24 12:31 Pulse Rate 92 04/04/24 12:31 Respiratory Rate 18 04/04/24 12:31 Blood Pressure 156/77 H 04/04/24 12:31 Blood Pressure Mean 103 04/04/24 12:31 Pulse Oximetry 91 04/04/24 12:31 Oxygen Delivery Method Room Air 04/04/24 12:31 Vital Signs Temperature 97.9 F 04/04/24 12:31 Pulse Rate 92 04/04/24 12:31 Respiratory Rate 18 04/04/24 12:31 Blood Pressure 156/77 H 04/04/24 12:31 Pulse Oximetry 91 04/04/24 12:31 Oxygen Delivery Method Room Air 04/04/24 12:31 Temperature 97.9 F 04/04/24 12:31 Pulse Rate 92 04/04/24 12:31 Respiratory Rate 18 04/04/24 12:31 Blood Pressure 156/77 H 04/04/24 12:31 Pulse Oximetry 91 04/04/24 12:31 Oxygen Delivery Method Room Air 04/04/24 12:31 Medical Decision Making MDM Narrative Medical decision making narrative: 69-year-old female status post stroke presenting today with concerns of word-finding difficulty noted by someone she was talking to on the phone. Patient feels fine and no significant abnormalities noted on examination today. Patient will be discharged home to follow-up as scheduled. Fall: Patient asymptomatic aside from toe pain. We discussed symptomatic treatment. Imaging Data X-ray toes: Attestation: I have reviewed the pertinent imaging results. Radiologist's impression: TECHNIQUE: Three views of right 4th toe FINDINGS/IMPRESSION: Normal alignment. No acute fracture or acute osseous abnormalities are visualized. No definite fracture seen soft tissue swelling Discharge Plan Discharge Clinical Impression: Fall, Pain in toe Patient Disposition: Home, Self-Care Condition: Stable Additional Instructions: Okay to elevate and ice toes as needed. Follow-up with your care team as directed. Prescriptions: No Action calcium carbonate-vitamin D3 600 mg-20 mcg (800 unit) tablet 1 tab PO DAILY cholecalciferol (vitamin D3) 25 mcg (1,000 unit) tablet 2,000 unit PO DAILY fluticasone propionate 50 mcg/actuation spray,suspension 1 spray intranasal DAILY folic acid 1 mg tablet 1 mg PO DAILY methotrexate sodium 2.5 mg tablet 5 mg PO .Every 7 Days Patient Comments: patient now taking 2 tablets weekly as of 04/08 gemfibrozil 600 mg tablet 600 mg PO BID valacyclovir 1 gram tablet 1,000 mg PO DAILY PRN leflunomide 10 mg tablet 10 mg PO DAILY famotidine 20 mg tablet 20 mg PO BID pantoprazole 40 mg tablet,delayed release (DR/EC) 40 mg PO BID losartan 100 mg tablet 100 mg PO DAILY albuterol sulfate 2.5 mg /3 mL (0.083 %) solution for nebulization 2.5 mg inhalation Q6H PRN Patient Comments: Uses BID scheduled minoxidil 2.5 mg tablet 2.5 mg PO DAILY finasteride 5 mg tablet 5 mg PO DAILY ascorbic acid (vitamin C) 500 mg capsule 500 mg PO DAILY magnesium gluconate 27 mg magnesium (500 mg) tablet 27 mg PO DAILY aspirin [Children's Aspirin] 81 mg Tablet,Chewable 81 mg PO DAILY Qty: 90 0RF Follow Up/Referrals: Radha Vasquez MD [Primary Care Provider] - Stand Alone Forms: [employer] - Financial Reconciliationealth Info Instructions
--- OUTSIDE RECORDS SUMMARY | 2024-04-04 13:18 | XMS_ITS | Clinical Summary ---
Author Organization [facility] Address [address] [place] [address] Care Team Providers Care House Carpenter Name Role Phone Radha Vasquez MD Primary [...] Comments Blood Pressure 164/98 08/16/2017 10:45 AM CAPACITY PLANNING ANALYST Pulse 84 09/09/2013 8:30 PM CAPACITY PLANNING ANALYST Temperature 36.4 ??C (97.5 ??F) 08/16/2017 10:[address] Respiratory Rate 16 08/16/2017 10:45 AM CAPACITY PLANNING ANALYST Oxygen Saturation 92% 08/16/2017 10:45 AM CAPACITY PLANNING ANALYST Inhaled Oxygen Concentration - - Weight 107.5 kg (237 lb) 08/16/2017 7:06 AM CAPACITY PLANNING ANALYST Height 160 cm (5' 3) 08/16/2017 7:06 AM CAPACITY PLANNING ANALYST Body Mass Index 41.98 08/16/2017 7:06 AM CAPACITY PLANNING ANALYST Plan of Treatment Not on file Medical Devices Implanted Type Area Scrap Piler Device Identifier Shelf Expiration Date Model / Serial / Lot Bone Cement Simplex Full Dose 6191-1-001 Implanted:Qty: 2 on 02/04/2013 by Steve Sommers MD at [facility] Right: Knee 11/05/2014 6191-1-001 / / [id number] Imp Baseplate Tibial Howm Tri 3 5520-B-300 Implanted:Qty: 1 on 02/04/2013 by Steve Sommers MD at [facility] Right: Knee 01/05/2018 5520-B-300 / / ILOWD Imp Comp Femoral Howm Tri Cr Rt 3 5510-F-302 Implanted:Qty: 1 on 02/04/2013 by Steve Sommers MD at [facility] Right: Knee 09/07/2017 5510-F-302 / / ECEAL Imp Comp Patella Tri X3 Ps 29x8mm 5550-G-298 Implanted:Qty: 1 on 02/04/2013 by Steve Sommers MD at [facility] Right: Knee 07/07/2016 5550-G-298 / / [id number] Imp Insert Tibial Howm Tri 3x11mm 5530-G-311 Implanted:Qty: 1 on 02/04/2013 by Steve Sommers MD at [facility] Right: Knee 01/05/2018 5530-G-311 / / [id number] Imp Insert Tibial Howm Tri 3x09mm 5530-G-309 Implanted:Qty: 1 on 06/15/2014 by Steve Sommers MD at [facility] Left: Knee [employer] 05/14/2019 5530-G-309 / / [id number] Imp Comp Patella Strk Triathln Tri Bd W/Pa 32mm 5554-L-320 Implanted:Qty: 1 on 06/15/2014 by Steve Sommers MD at [facility] Left: Knee [employer] 12/12/2018 5554-L-320 / / [id number] Imp Comp Fem Strk Triathln Cr Bd W/Pa Lt 3 5517-F-301 Implanted:Qty: 1 on 06/15/2014 by Steve Sommers MD at [facility] Left: Knee [employer] 03/14/2019 5517-F-301 / / [id number] #3 Tibia Implanted:Qty: 1 on 06/15/2014 by Steve Sommers MD at [facility] Left: Knee [employer] 04/14/2019 5536-B-300 / / [id number] Advance Directives For more information, please contact: [phone] * Full Code (Latest Code Status on File) Date Activated Date Inactivated Comments 06/15/2014 6:53 PM 06/18/2014 5:45 PM * Full Code Date Activated Date Inactivated Comments 02/04/2013 7:40 PM 02/08/2013 4:52 PM Care Teams House Carpenter Relationship Specialty Start Date End Date Radha Vasquez MD PCP - General 10/24/07
--- OUTSIDE RECORDS SUMMARY | 2024-04-04 13:18 | XMS_ITS | Encounter Summary ---
Author Organization [facility] Address [address] [address] Care Team Providers Care Electrical Apprentice Name Role Phone Radha Vasquez MD Primary Care Provider [phone] Encounter Details Date Type Department Care Team (Late st Contact Info) Description 03/12/2024 Notes/Orders Rheumatology at [address] [address] Max Lazaro MD [address] [place], [place] [id number] Social History Tobacco Use Types Packs/Day Years [...] (Late Contact Info) Description 07/30/2024 9:15 AM CATHOLIC PRIEST Appointment Rheumatology at [address] [address] Max Lazaro MD [address] [place] [address] documented as of this encounter Visit Diagnoses Not on filedocumented in this encounter Care Teams Electrical Apprentice Relationship Specialty [place] [address] [place] [address] PCP - General 06/03/15 documented as of this encounter
--- OUTSIDE RECORDS SUMMARY | 2024-04-04 13:18 | XMS_ITS | Referral Summary ---
Author Organization [facility] Address [address] [place] [address] Care Team Providers Care Linux Systems Engineer Name Role Phone Radha Vasquez MD Primary [...] Comments Blood Pressure 164/98 08/16/2017 10:45 AM WOOD MILLING MACHINE TENDER Pulse 84 09/09/2013 8:30 PM WOOD MILLING MACHINE TENDER Temperature 36.4 ??C (97.5 ??F) 08/16/2017 10:[address] Respiratory Rate 16 08/16/2017 10:45 AM WOOD MILLING MACHINE TENDER Oxygen Saturation 92% 08/16/2017 10:45 AM WOOD MILLING MACHINE TENDER Inhaled Oxygen Concentration - - Weight 107.5 kg (237 lb) 08/16/2017 7:06 AM WOOD MILLING MACHINE TENDER Height 160 cm (5' 3) 08/16/2017 7:06 AM WOOD MILLING MACHINE TENDER Body Mass Index 41.98 08/16/2017 7:06 AM WOOD MILLING MACHINE TENDER Plan of Treatment Not on file Medical Devices Implanted Type Area Bellmaker Device Identifier Shelf Expiration Date Model / Serial / Lot Bone Cement Simplex Full Dose 6191-1-001 Implanted:Qty: 2 on 02/04/2013 by Steve Sommers MD at [facility] Right: Knee 11/05/2014 6191-1-001 / / [id number] Imp Baseplate Tibial Howm Tri 3 5520-B-300 Implanted:Qty: 1 on 02/04/2013 by Steve Sommers MD at [facility] Right: Knee 01/05/2018 5520-B-300 / / ILOWD Imp Comp Femoral Howm Tri Cr Rt 3 5510-F-302 Implanted:Qty: 1 on 02/04/2013 by Steve Sommers MD at [facility] Right: Knee 09/07/2017 5510-F-302 / / ECEAL Imp Comp Patella Tri X3 Ps 29x8mm 5550-G-298 Implanted:Qty: 1 on 02/04/2013 by Steve Sommers MD at [facility] Right: Knee 07/07/2016 5550-G-298 / / [id number] Imp Insert Tibial Howm Tri 3x11mm 5530-G-311 Implanted:Qty: 1 on 02/04/2013 by Steve Sommers MD at [facility] Right: Knee 01/05/2018 5530-G-311 / / [id number] Imp Insert Tibial Howm Tri 3x09mm 5530-G-309 Implanted:Qty: 1 on 06/15/2014 by Steve Sommers MD at [facility] Left: Knee [employer] 05/14/2019 5530-G-309 / / [id number] Imp Comp Patella Strk Triathln Tri Bd W/Pa 32mm 5554-L-320 Implanted:Qty: 1 on 06/15/2014 by Steve Sommers MD at [facility] Left: Knee [email or web address] 12/12/2018 5554-L-320 / / EHXXF Imp Comp Fem Strk Triathln Cr Bd W/Pa Lt 3 5517-F-301 Implanted:Qty: 1 on 06/15/2014 by Steve Sommers MD at [facility] Left: Knee [email or web address] 03/14/2019 5517-F-301 / / [id number] #3 Tibia Implanted:Qty: 1 on 06/15/2014 by Steve Sommers MD at [facility] Left: Knee [employer] 04/14/2019 5536-B-300 / / [id number] Advance Directives For more information, please contact: [phone] * Full Code (Latest Code Status on File) Date Activated Date Inactivated Comments 06/15/2014 6:53 PM 06/18/2014 5:45 PM * Full Code Date Activated Date Inactivated Comments 02/04/2013 7:40 PM 02/08/2013 4:52 PM Care Teams Linux Systems Engineer Relationship Specialty Start Date End Date Radha Vasquez MD PCP - General 10/24/07
--- OUTSIDE RECORDS SUMMARY | 2024-04-04 13:18 | XMS_ITS | Encounter Summary ---
Author Organization [facility] Address [address] [address] Care Team Providers Care Sampler And Test Preparer Name Role Phone Radha Vasquez MD Primary Care Provider [phone] Encounter Details Date Type Department Care Team (Late Contact Info) Description 03/12/2024 10:50 AM CDT Lab Visit [address] [address] Rheumatoid arthritis involving multiple sites [...] (Late Contact Info) Description 07/30/2024 9:15 AM CIGAR BINDER Appointment Rheumatology at [facility] [address] [address] Max Lazaro MD [address] [place] [address] documented as of this encounter [...] Complete Blood Count-W/Diff (03/12/2024 10:57 AM CDT) [facility] WBC 5.0 3.5 - 10.5 x10(9)/L 03/12/2024 11:[address] [facility] RBC 3.99 3.90 - 5.03 x10(12)/L 03/12/2024 11:[address] [facility] Hemoglobin 11.7(L) 12.0 - 15.5 g/dL 03/12/2024 11:[address] [facility] HCT 37.4 34.9 - 44.5 % 03/12/2024 11:[address] [facility] MCV 93.7 80.0 - 100.0 fL 03/12/2024 11:[address] [facility] MCH 29.3 27.6 - 33.3 pg 03/12/2024 11:[address] [facility] MCHC 31.3(L) 31.5 - 35.2 g/dL 03/12/2024 11:[address] [facility] RDW 17.3(H) 11.9 - 15.5 % 03/12/2024 11:[address] [facility] Platelets 279 150 - 450 x10(9)/L 03/12/2024 11:[address] [facility] Neutrophil Absolute 3.3 1.7 - 7.0 10(9)/L 03/12/2024 11:[address] [facility] Lymphocyte Absolute 1.1 1.0 - 4.8 10(9)/L 03/12/2024 11:03 AM CDT [facility] Monocyte Absolute 0.4 0.2 - 0.9 10(9)/L 03/12/2024 11:03 AM CDT [facility] Eosinophil Absolute 0.2 0.0 - 0.5 10(9)/L 03/12/2024 11:03 AM CDT [facility] Basophil Absolute 0.0 0.0 - 0.3 10(9)/L 03/12/2024 11:03 AM CDT [facility] Immature Granulocyte % 0.2 0.0 - 0.5 % 03/12/2024 11:03 AM CDT [facility] Blood Venipuncture / Unknown 03/12/2024 10:57 AM CDT 03/12/2024 10:57 AM CDT Max Lazaro MD LAB_[address] Address [facility]/ZIP Co de Phone Number [facility] [address] [place] [address] * (ABNORMAL) AST (03/12/2024 10:57 AM CDT) AST (SGOT) 60(H) 10 - 40 U/L 03/12/2024 4:38 PM CDT [facility] Blood Venipuncture / Unknown 03/12/2024 10:57 AM CDT 03/12/2024 10:57 AM CDT Max Lazaro MD LAB_[address]forming [address] Address [facility]/ZIP Co de Phone Number [facility] [address] [place] [address] * Creatinine / GFR (03/12/2024 10:57 AM CDT) Creatinine 0.66 0.55 - 1.02 mg/dL 03/12/2024 4:38 PM T [facility] GFR, Estimated >60 >60 mL/min/1.7 3m2 03/12/2024 4:38 PM CDT [facility] Blood Venipuncture / Unknown 03/12/2024 10:57 AM CDT 03/12/2024 10:57 AM CDT Max Lazaro MD LAB_1 [facility] [address] [place] [address] documented in this encounter Visit Diagnoses Diagnosis 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) documented in this encounter Care Teams Sampler And Test Preparer Relationship Specialty [place] [address] [place] [address] PCP - General 06/03/15 documented as of this encounter
--- OUTSIDE RECORDS SUMMARY | 2024-04-04 13:18 | XMS_ITS | Encounter Summary ---
Author Organization [facility] Address [address] [place] [address]. [place] [address] Care Team Providers Care Security Rep Name Role Phone Radha Vasquez MD Primary Care Provider + Encounter Details Date Type Department Care Team (Late st Contact Info) Description 05/22/2014 [facility] [address] [place] [address] Steve Sommers MD [facility] [address] [facility] [address] [place] [phone] Preoperative examination, unspecified (Primary Dx) Social History [...] Resistant Staph Aureus PCR (06/04/2014 12:10 PM MANAGER COLLEGE) Specimen Description [facility] Methicillin Resist/Sens S. aureus PCR Negative [...] nasal colonization. FDA approved assay performed using [employer] GeneXpert(R) real-time PCR. NEG [facility] 06/04/2014 12:1 0 PM MANAGER COLLE[employer] 06/04/2014 12:25 PM MANAGER COLLEGE Steve Sommers MD LAB - MICRO GENERAL ORDERABLES [facility] documented in this encounter Visit Diagnoses Diagnosis Preoperative examination, unspecified- Primary documented in this encounter Care Teams Security Rep Relationship Specialty Start Date End Date Radha Vasquez MD PCP - General 10/24/07 documented as of this encounter
--- OUTSIDE RECORDS SUMMARY | 2024-04-04 13:18 | XMS_ITS | Clinical Summary ---
[facility] [address], [place] [address] Care Team Providers Care Computer Forwarding System Markup Clerk Name Role Phone Radha Vasquez MD Primary Care Provider [phone] Source Comments You are receiving this document as you are listed as the primary care provider,follow-up provider, or the patient has been referred to you for consultation.This is in compliance with the Medicare and[employer] EHR Incentive Program,which states Providers who transition their patient to another setting of careor provider of care or refers their patient to another provider of care shouldprovide summary care record for each transition of care or referral. [employer] Allergies Active Allergy Reactions Criticality Noted Date [...] SunJul 14, 2015 2:37 PM Received from: [employer] Inhale 1 Puff. Reported on 09/11/2016 Indications: ELFEGO MATT SunJul 14, 2015 2:37 PM Received from: [employer] 01/15/2015 Active pantoprazole (PROTONIX) 40 MG tabletIndication s:ELFEGO MATT SunJul 14, 2015 2:37 PM Received from: External Pharmacy Indications: PN: ELFEGO MATT SunJul 14, 2015 2:37 PM Received from: External Pharmacy 07/05/2015 Active gemfibrozil (LOPID) 600 MG tabletIndication s:ELFEGO MATT SunJul 14, 2015 2:37 PM Received from: [employer] Take 1 Tablet (600 mg) by mouth. Indications: ELFEGO MATT SunJul 14, 2015 2:37 PM Received from: [employer] 01/15/2015 Active Multiple Vitamins-Mineral s (MULTIVITAMIN ADULT [...] nodule 07/03/2018 Pain of left heel 12/03/2017 half-way current use of therapeutic drug 2017 Vitamin [...] Description 03/12/2024 10:50 AM CDT Lab Visit [facility] [address] [place] [address] 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) 03/12/2024 Notes/Orders Rheumatology at [facility] [address] [address] Max Lazaro MD from Last 3 Months Immunizations Name Administration Dates Next Due Flu Vac (3+ yrs) 06/02/2013, 2,06/14/2011,2010,06/02/2008 Flu Vac Preserv Free (3+yrs) 06/14/2011 [id number] 06/24/2009 HepA Adult (19+ yrs) 06/02/2008,11/29/2007 Influenza IIV3 (Trivalent) F luzone Highdose, 65+ Yrs (44875) 03/31/2022,03/26/2019 Influenza IIV4 (Quadrivalent ) 0.5mL (23581) 04/19/2017,05/17/2016,04/15/2016,2014,05/30/2014 Influenza IIV4 (Quadrivalent ) Fluad, 65+ [...] 161.3 cm (5' 3.5) 09/11/2016 1:16 PM PLASTIC SEWER Body Mass Index 44.46 09/11/2016 1:16 PM PLASTIC SEWER Plan of Treatment Upcoming Encounters Date Type Department Care Team (Late st Contact Info) Description 07/30/2024 9:15 AM PLASTIC SEWER Appointment Rheumatology at [facility] [address] [address] [place], [place] [id number] Max Lazaro MD [address] [place], [place] [id number] Health Maintenance Due Date Last Done Comments [...] ANTIBODY, WITH REFLEX Routine 09/11/2016 2:21 PM PLASTIC SEWER 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) from Last 3 Months or Most Recently Relevant to Health Maintenance Results * Creatinine / GFR (03/12/2024 10:57 AM CDT) [facility] Creatinine 0.66 0.55 - 1.02 mg/dL 03/12/2024 4:38 PM T [facility] GFR, Estimated >60 >60 mL/min/1.7 3m2 03/12/2024 4:38 PM [facility] Blood Venipuncture / Unknown 03/12/2024 10:57 AM CDT 03/12/2024 10:57 AM CDT Max Lazaro MD LAB_1 [facility] [address] [place] [address], [facility] * (ABNORMAL) Complete Blood Count-W/Diff (03/12/2024 10:57 AM CDT) [facility] WBC 5.0 3.5 - 10.5 x10(9)/L 03/12/2024 11:03 AM [facility] RBC 3.99 3.90 - 5.03 x10(12)/L 03/12/2024 11:03 AM [facility] Hemoglobin 11.7(L) 12.0 - 15.5 g/dL 03/12/2024 11:03 AM [facility] HCT 37.4 34.9 - 44.5 % 03/12/2024 11:03 AM [facility] MCV 93.7 80.0 - 100.0 fL 03/12/2024 11:03 AM [facility] MCH 29.3 27.6 - 33.3 pg 03/12/2024 11:03 AM [facility] MCHC 31.3(L) 31.5 - 35.2 g/dL 03/12/2024 11:03 AM [facility] RDW 17.3(H) 11.9 - 15.5 % 03/12/2024 11:03 AM [facility] Platelets 279 150 - 450 x10(9)/L 03/12/2024 11:03 AM [facility] Neutrophil Absolute 3.3 1.7 - 7.0 10(9)/L 03/12/2024 11:03 AM [facility] Lymphocyte Absolute 1.1 1.0 - 4.8 10(9)/L 03/12/2024 11:03 AM CDT [facility] Monocyte Absolute 0.4 0.2 - 0.9 10(9)/L 03/12/2024 11:03 AM CDT [facility] Eosinophil Absolute 0.2 0.0 - 0.5 10(9)/L 03/12/2024 11:03 AM T [facility] Basophil Absolute 0.0 0.0 - 0.3 10(9)/L 03/12/2024 11:03 AM T [facility] Immature Granulocyte % 0.2 0.0 - 0.5 % 03/12/2024 11:03 AM T [facility] Blood Venipuncture / Unknown 03/12/2024 10:57 AM CDT 03/12/2024 10:57 AM CDT Max Lazaro MD LAB_1 Performing Organization Address City/[facility]/ZIP Co de Phone Number [facility] [address] [place] [address] * (ABNORMAL) AST (03/12/2024 10:57 AM CDT) Pathologist [facility] AST (SGOT) 60(H) 10 - 40 U/L 03/12/2024 4:38 PM T [facility] Blood Venipuncture / Unknown 03/12/2024 10:57 AM CDT 03/12/2024 10:57 AM CDT Max Lazaro MD LAB_1 [facility] [address] [place] [address] * HCAB - Hepatitis C Virus Georgie with Reflex In-House (09/11/2016 2:21 PM PLASTIC SEWER) Pathologist [facility] Hepatitis C Antibody Nonreactive Nonreactive PN SOFT 09/11/2016 2:21 PM PLASTIC SEWER 09/11/2016 7:05 PM PLASTIC SEWER Narrative PN SOFT - 09/11/2016 8:24 PM PLASTIC SEWER Performed at [facility] [id number] [place] [address] CLIA number [id number] Max Lazaro MD LAB_1 [facility] [address] [place] [address] from Last 3 Months or Most Recently Relevant to Health Maintenance Care Teams Computer Forwarding System Markup Clerk Relationship Specialty Start [place] [address] [place], [place] [phone] PCP - General 06/03/15
--- OUTSIDE RECORDS SUMMARY | 2024-04-04 13:19 | XMS_ITS | Clinical Summary ---
[facility] Organization [facility] Address [place], [place] [address] Care Team Providers Care Nurses Medical Assistants Phlebotomists Name Role Phone Radha Vasquez MD Primary [...] nasal solution (FLONASE)Indication s:Environmental allergies Inhale 1 [place] to both nostrils once daily. 9.9 mL [...] Encounters Date Type Department Care Team Description 04/04/[address] [address] Radha Vasquez MD update 04/04/2024 Nurse Triage [address] [address] Radha Vasquez MD triage 04/03/[address] [address] Radha Vasquez MD Follow Up (Appointment ) 04/02/2024 Office Visit [facility] [address] [place] [phone] Anay Osman MD Telehealth ([facility] ) 04/01/2024 3:30 PM CDT Ancillary Procedure [place] [facility] [address] [place] [address] Arrived 04/01/2024 Telephone [facility] [place] [address] [place] [phone] Brendan Barton MD Stroke 04/01/2024 Office Visit [facility] [address] [facility] [address] [place] [address] Anay Osman MD Telehealth ([facility]) 03/31/2024 Orders Only [facility] Scanner 1 scan: (1-Ord) [facility], MR HEAD/BRAIN WO/W CON, 03/31/2024 03/31/2024 Orders Only [facility] Scanner 1 scan: (1-Ord) [facility], HEAD/BRAIN WITHOUT CONTRAST, 03/31/2024 03/31/2024 Office Visit [facility] [address] [facility] [address] [place] [address] Anay Osman MD Telehealth ([facility] ) 03/31/2024 Nurse Triage [address] [address] Radha Vasquez MD Eye Problem 03/31/[address] [address] Radha Vasquez MD 03/06/[address] [address] Radha Vasquez MD Refill Request (Losartan) from Last 3 Months Immunizations Name Administration Dates Next Due AMB Influenza, IIV4 PF (=>6 mos Flulaval,Fluzone Fluarix)(Flu Clinic Only) 04/19/2017 COVID-19 vaccine (Moderna 50 mcg/0.5mL) 12YO+ BIVALENT PF, MDV 04/10/2022 COVID-19 vaccine (Trueffect-Bio NTech 30mcg/0.3mL) PF MDV 09/17/2020 Hepatitis A (Adult) 06/02/2008,11/29/2007 Influenza, [...] Alive Daughter Alissa Alive Father (Age 70's) [place] Maternal Grandfather Maternal Grandmother Mother Alive Paternal [...] Comments Blood Pressure 129/70 09/21/2023 8:48 AM CALENDER INSPECTOR Pulse 77 09/21/2023 8:48 AM CALENDER INSPECTOR Temperature 36.6 ??C (97.9 ??F) 07/31/2023 2:34 PM CS T Respiratory Rate 16 09/21/2023 8:48 AM CALENDER INSPECTOR Oxygen Saturation 95% 09/21/2023 8:48 AM CALENDER INSPECTOR Inhaled Oxygen Concentration - - Weight 114.1 kg (251 lb 8 oz) 09/06/2023 11:08 A M CALENDER INSPECTOR Height 160 cm (5' 3) 09/06/2023 11:08 AM CALENDER INSPECTOR Body Mass Index 44.55 09/06/2023 11:08 AM CALENDER INSPECTOR Plan of Treatment Upcoming Encounters Date Type Department Care Team (Late st Contact Info) Description 04/07/2024 10:00 AM CDT Office Visit [facility] [address] [place] [address] [place] [address] [place], [place] [phone] Health Maintenance Due Date Last Done Comments [...] history exists Medical Devices Implanted Type Area Sleeve Setter Device Identifier Shelf Expiration Date Model / Serial / Lot Sling Miniarc - [id number] Implanted:Qty: 1 on 12/15/2008 at [facility] [employer] 10/22/2011 [id number] / / [id number] Description:IMPLANTED MID-UR ETHRA Arthrex Screw Implanted:Qty: 1 on 07/13/2023 by Sebastien Robles DPM at [facility] Right: Foot [employer] [id number] / / Procedures Procedure Name Priority Date/Time Associated Diagnosis Comments ECHO TTE COMPLETE W CONTRAST W BUBBLE Routine 04/01/2024 4:23 PM CDT Stroke (HC) SCAN-MRI INTERPRETATION 03/31/2024 12:00 AM CDT SCAN-CT INTERPRETATION 12:00 AM CDT SDNA-FIT EXTERNAL (COLOGUARD) Routine 09/20/2023 6:00 AM CALENDER INSPECTOR Screening for colon cancer XR MAMMO JD BILAT SCREEN Routine 09/14/2023 9:09 AM CALENDER INSPECTOR Screening breast examination XR DXA BONE DENSITY 2 SITES AXIAL Routine 09/14/2023 8:57 AM CALENDER INSPECTOR Osteopenia, unspecified location Post-menopausal LIPID PANEL W REFLEX MEASURED LDL Routine 09/06/2023 12:08 PM CALENDER INSPECTOR Hyperlipidemia, unspecified hyperlipidemia type OCCULT BLOOD IFOBT STOOL Routine 04/22/2022 2:40 PM CDT Screening for colon cancer from Last 3 Months or Most Recently Relevant to Health Maintenance Results * ECHO TTE COMPLETE W CONTRAST W BUBBLE (04/01/2024 4:23 PM CDT) AORTIC VALVE MEAN PG 8 mmHg EJECTION FRACTION 76 % LVEDD 4.1 cm EJECTION FRACTION 70 - 75% Anatomical Region Laterality Modality Ultrasound 04/01/2024 3:29 PM CDT Narrative 04/01/2024 4:48 PM CDT ECHOCARDIOGRAM INO SMITH ? Accession#: ?? [id number] : ?1955 69 years Study Date: ?? 04/01/2024 3:29:01 PM Gender: F ?BP: ? 160/91 mmHg Height: 160.00 cm ?BSA: ?2.13 m? ? ? Weight: 114.00 kg ?Tech: ? MBF ? Referring MD: PROVIDER REFERRING Site: ? [facility] Reading Location: [facility] Patient Location: Inpatient. Procedure: 2D w/ Bubbles, 2D w/ Contrast, Color Doppler and Spectral Doppler. Indication for study: Stroke Cardiac Rhythm: Regular.Study quality: Fair. Final Impressions: 1. Normal LV size, moderately increased wall thickness in a concentric pattern, hyperdynamic global systolic function with an estimated EF of 70 - 75%. 2. Severely enlarged left atrium. 3. Right ventricular cavity size is normal, global systolic RV function is normal. 4. The aortic valve is trileaflet and sclerotic, no stenosis and mild regurgitation. 5. The mitral valve is sclerotic, mild mitral regurgitation. Mitral stenosis with moderately increased mean gradient of 8.2 mmHg at a heart rate of 83. 6. Negative bubble study. No evidence of shunting at the atrial level by color doppler assessment. 7. The ascending aorta is dilated with a maximal diameter of 4.1 cm. 8. Echo contrast was administered to enhance visualization of all left ventricular segments. No LV thrombus. Comparison There are no prior studies on this patient for comparison purposes. Chamber Sizes and Function Normal left ventricular size, moderately increased wall thickness, hyperdynamic global systolic function with an estimated EF of 70 - 75%. Moderate concentric left ventricular hypertrophy. No definite resting regional wall motion abnormality seen. Left atrial size is severely enlarged. Right ventricular cavity size is normal, global systolic RV function is normal. The right atrium is normal. Right atrial volume index is 13 ml/m? ? ?. Right atrial area is 13 cm? ? ?. The pulmonary artery is of normal size and origin. The sinus of Valsalva is normal sized. The ascending aorta is dilated. Valves, RV Pressures and Diastolic Function The aortic valve is trileaflet and sclerotic, no stenosis and mild regurgitation. The mitral valve is sclerotic, mild mitral regurgitation. A moderately increased gradient of 8.2 mmHg at a heart rate of 83 is calculated across the mitral valve using continuous Doppler examination. Indeterminate pattern of LV diastolic filling. The tricuspid valve is normal in structure. Tricuspid regurgitation is trace regurgitation. The pulmonic valve is normal. Trace pulmonary regurgitation. Pulmonary veins show a normal flow pattern. Masses, Effusion, Shunts There is no pericardial effusion. The inferior vena cava is normal sized, respiratory size variation less than 50%. Agitated saline injection showed no right to left shunt at rest or following Valsalva manuever. No left to right shunting was detected by limited color flow Doppler interrogation of the interatrial septum. MEASUREMENTS AND CALCULATIONS 2-D Measurements and LV Function: LVID (d) 4.1 cm LV FS% (2D) ?? 19 % LVID (s) 3.4 cm LVOT diameter 2.0 cm IVS (d) ??1.4 cm HR ?90 bpm LVPW (d) 1.4 cm LA Vol index ??60 ml/m2 Ao Sinus 3.6 cm RA Vol index ??13 ml/m2 Asc Ao ?? 4.1 cm RA area ? 13 cm?RV Max 4C (d) 4.5 cm Diastology: Mitral ?Tissue Doppler E Peak 1.6 m/s ??e', Septum ? 0.06 m/s A Peak 1.6 m/s ??e', Lateral ?0.08 m/s E/A ?1.0 ?E/e' Average ?? 24.30 DT ? 252 msec Aortic Valve: Vmax ? 1.8 m/s ??SHARA (V) ?? 2.25 cm? AI P 1/2 431 msec VTI ?0.39 m ?? SHARA (I) ?? 2.42 cm? ? ? LVOT V max 1.3 m/s ??Max PG ?13 mmHg LVOT VTI ?? 0.31 m ?? Mean PG ?? 8 mmHg SV ? 95 ml ?Dim Index 0.79 SV index ?? 45 ml/m? ? ? CO ?8.5 l/min ?CI ?4.0 l/min/m? ? ? Mitral Valve: MVA ? 3.0 cm? ? ? MV P 1/2 ??73 msec MV Mean G 8 mmHg MV VTI ?0.49 m Tricuspid Valve and estimated PA pressures: TAPSE 2.4 cm Contrast documentation: 4 ml diluted Definity, lot #[id number], [facility] [place] [id number] was administered peripherally to enhance visualization of all left ventricular segments. . This study was interpreted by an [facility] accredited facility. CC: HIM (med records) [facility], Med[facility]Surg - IP [facility]. ??Final ?? Procedure Note Brendan Barton MD - 04/01/2024 ECHOCARDIOGRAM INO SMITH : 1955 69 years Study Date: 04/01/2024 3:29:01 PM Gender: F BP: 160/91 mmHg Height: 160.00 cm BSA: 2.13 m? ? ? Weight: 114.00 kg Tech: ENRIQUE Referring MD: PROVIDER REFERRING Site: [facility] Reading Location: Mobile [facility] Patient Location: Inpatient. Procedure: 2D w/ Bubbles, 2D w/ Contrast, Color Doppler and SpectralDoppler. Indication for study: Stroke Cardiac Rhythm: Regular.Study quality: Fair. Final Impressions: 1. Normal LV size, moderately increased wall thickness in a concentricpattern, hyperdynamic global systolic function with an estimated EF of 70- 75%. 2. Severely enlarged left atrium. 3. Right ventricular cavity size is normal, global systolic RV functionis normal. 4. The aortic valve is trileaflet and sclerotic, no stenosis and mildregurgitation. 5. The mitral valve is sclerotic, mild mitral regurgitation. Mitralstenosis with moderately increased mean gradient of 8.2 mmHg at a heartrate of 83. 6. Negative bubble study. No evidence of shunting at the atrial level bycolor doppler assessment. 7. The ascending aorta is dilated with a maximal diameter of 4.1 cm. 8. Echo contrast was administered to enhance visualization of all leftventricular segments. No LV thrombus. Comparison There are no prior studies on this patient for comparison purposes. Chamber Sizes and Function Normal left ventricular size, moderately increased wall thickness,hyperdynamic global systolic function with an estimated EF of 70 - 75%.Moderate concentric left ventricular hypertrophy. No definite restingregional wall motion abnormality seen. Left atrial size is severelyenlarged. Right ventricular cavity size is normal, global systolic RVfunction is normal. The right atrium is normal. Right atrial volume indexis 13 ml/m? ? ?. Right atrial area is 13 cm? ? ?. The pulmonary artery is ofnormal size and origin. The sinus of Valsalva is normal sized. Theascending aorta is dilated. Valves, RV Pressures and Diastolic Function The aortic valve is trileaflet and sclerotic, no stenosis and mildregurgitation. The mitral valve is sclerotic, mild mitral regurgitation. Amoderately increased gradient of 8.2 mmHg at a heart rate of 83 iscalculated across the mitral valve using continuous Doppler examination. Indeterminate pattern of LV diastolic filling. The tricuspid valve isnormal in structure. Tricuspid regurgitation is trace regurgitation. Thepulmonic valve is normal. Trace pulmonary regurgitation. Pulmonary veinsshow a normal flow pattern. Masses, Effusion, Shunts There is no pericardial effusion. The inferior vena cava is normal sized,respiratory size variation less than 50%. Agitated saline injection showedno right to left shunt at rest or following Valsalva manuever. No left toright shunting was detected by limited color flow Doppler interrogation ofthe interatrial septum. MEASUREMENTS AND CALCULATIONS 2-D Measurements and LV Function: LVID (d) 4.1 cm LV FS% (2D) 19 % LVID (s) 3.4 cm LVOT diameter 2.0 cm IVS (d) 1.4 cm HR 90 bpm LVPW (d) 1.4 cm LA Vol index 60 ml/m2 Ao Sinus 3.6 cm RA Vol index 13 ml/m2 Asc Ao 4.1 cm RA area 13 cm? ? ? RV Max 4C (d) 4.5 cm Diastology: Mitral Tissue Doppler E Peak 1.6 m/s e', Septum 0.06 m/s A Peak 1.6 m/s e', Lateral 0.08 m/s E/A 1.0 E/e' Average 24.30 DT 252 msec Aortic Valve: Vmax 1.8 m/s SHARA (V) 2.25 cm? ? ? AI P 1/2 431 msec VTI 0.39 m SHARA (I) 2.42 cm? ? ? LVOT V max 1.3 m/s Max PG 13 mmHg LVOT VTI 0.31 m Mean PG 8 mmHg SV 95 ml Dim Index 0.79 SV index 45 ml/m? ? ? CO 8.5 l/min CI 4.0 l/min/m? ? ? Mitral Valve: MVA 3.0 cm? ? ? MV P 1/2 73 msec MV Mean G 8 mmHg MV VTI 0.49 m Tricuspid Valve and estimated PA pressures: TAPSE 2.4 cm Contrast documentation: 4 ml diluted Definity, lot #[id number], [facility] [place][id number] was administered peripherally to enhance visualization of allleft ventricular segments. . This study was interpreted by an [facility] accredited facility. CC: HIM (med records) [facility], Med[facility]Surg - IP [facility]. Final Provider Referring ECHO ORD * SCAN-MRI INTERPRETATION (03/31/2024 12:00 AM CDT) Anatomical Region Laterality Modality Other Scanner OTHER * SCAN-CT INTERPRETATION (03/31/2024 12:00 AM CDT) Anatomical Region Laterality Modality Other Scanner OTHER * SDNA-FIT EXTERNAL (COLOGUARD) (09/20/2023 6:00 AM CALENDER INSPECTOR) NONINV COLON CA DNA+OCC BLD SCRN STL-IMP Negative Negative 09/26/2023 7:35 PM CDT [employer] (CLIA #:[id number]) Comment: NEGATIVE TEST RESULT. A negative Cologuard [...] cancer. ??Following a negative Cologuard result, the [place] [employer] and U.S. Multi-Society Task Force screening guidelines recommend a Cologuard re-screening interval of 3 years. References: [place] [employer] Guideline for Colorectal Cancer Screening: https://www.cancer.org/cancer/ymoye-zplvzk-upqmqd/ychslzpsi-hqxxycrbj-duvztbu/ac s-rec ommendations.html.; Matti GUSMAN, Eugenio CEBALLOS, Stephanie PerdomoK, Colorectal Cancer Screening: Recommendations for Physicians and Patients from the U.S. Multi-Society Task Force on Colorectal Cancer Screening , Am J Gastroenterology 2017; 112:2089-4238. TEST DESCRIPTION: Composite algorithmic analysis of stool [...] (Bryant Gay al, N Engl J Med 2014;370(14):7995-9474.) Cologuard may produce a false negative or false positive result (no colorectal cancer or precancerous polyp present at colonoscopy follow up). A negative Cologuard test result does not guarantee the absence of CRC or advanced adenoma (pre-cancer). The current Cologuard screening interval is every 3 years. ([place] [employer] and U.S. Multi-Society Task Force). Cologuard performance data in a 10,000 patient pivotal study using colonoscopy as the reference method can be accessed at the following location: www.[employer]/results. Additional description of the Cologuard test process, warnings and precautions can be found at www.ePatientFinder.PiniOn. Stool specimen (specimen) (Rectum) 09/20/2023 6:00 AM CALENDER INSPECTOR 09/21/2023 12:29 PM CALENDER INSPECTOR Radha Vasquez MD URINE [employer] (CLIA #:[id number]) [place] [address], * XR MAMMO JD BILAT SCREEN (09/14/2023 9:09 AM CALENDER INSPECTOR) Anatomical Region Laterality Modality BREASTS, Breast Left, Breast Right Bilateral Mammography 09/14/2023 9:09 AM CALENDER INSPECTOR Impressions 09/14/2023 12:28 PM CALENDER INSPECTOR IMPRESSION: No evidence of malignancy. Recommend routine [...] is 12.9% for women born in the . For patients with a lifetime breast cancer [...] health insurance. Recommendations are based on the [place] [employer] Appropriateness Criteria. Patients with a BI-RADS category of 0 should follow the recommendations for further evaluation before considering supplemental screening. Narrative 09/14/2023 12:28 PM CALENDER INSPECTOR EXAM: MAMMOGRAM SCREENING JD BILATERAL LOCATION: [facility] DATE: 09/14/2023 INDICATION: Asymptomatic. Screening Mammogram. COMPARISON: 09/11/22, 09/08/21 BREAST DENSITY: There are scattered areas of fibroglandular density. FINDINGS: Tomosynthesis craniocaudal and mediolateral oblique views were obtained. There is no evidence for spiculated masses, architectural distortion, asymmetry or suspicious calcifications. Procedure Note Angel Aguirre MD - 09/14/2023 EXAM: MAMMOGRAM SCREENING JD BILATERAL LOCATION: [facility] DATE: 09/14/2023 INDICATION: Asymptomatic. Screening Mammogram. COMPARISON: [...] health insurance. Recommendations are based on the [place] [employer] Appropriateness Criteria. Patients with a BI-RADS category of 0 should follow the recommendations for further evaluation before considering supplemental screening. Radha Vasquez MD MAMMO * XR DXA BONE DENSITY 2 SITES AXIAL (09/14/2023 8:57 AM CALENDER INSPECTOR) Anatomical Region Laterality Modality Spine, HIPS, HIPL, HIPR Other 09/14/2023 8:57 AM CALENDER INSPECTOR Impressions 09/14/2023 12:03 PM CALENDER INSPECTOR IMPRESSION: Low bone density (OSTEOPENIA). T score meets the WHO criteria for low bone density (osteopenia) at one or more measured sites. The risk of osteoporotic fracture increases approximately two-fold for each standard deviation decrease in T-score. Narrative 09/14/2023 12:03 PM CALENDER INSPECTOR EXAM: BONE DENSITY LOCATION: [facility] DATE: 09/14/2023 INDICATION: Other specified disorders of [...] PA-C - 09/14/2023 EXAM: BONE DENSITY LOCATION: [facility] DATE: 09/14/2023 INDICATION: Other specified disorders of [...] W REFLEX MEASURED LDL (09/06/2023 12:08 PM CALENDER INSPECTOR) [facility] CHOLESTEROL,TOTAL 195 100 - 199 mg/dL 09/06/2023 9:35 PM CALENDER INSPECTOR [facility] Comment: Cholesterol, Total Reference Ranges Desirable <200 mg/dL Borderline 200-239 mg/dL High >=240 mg/dL TRIGLYCERIDES 154(H) <150 mg/dL 09/06/2023 9:35 PM CALENDER INSPECTOR [facility] TR[facility] HDL CHOLESTEROL 51 >40 mg/dL 9:35 PM CALENDER INSPECTOR [facility] NON-HDL CHOLESTEROL 144 <145 mg/dl 09/06/2023 9:35 PM CALENDER INSPECTOR [facility] CHOL/HDL RATIO 3.82 <4.50 09/06/2023 9:35 PM CALENDER INSPECTOR [facility] LDL CHOLESTEROL 113 <=130 mg/dL 09/06/2023 9:35 PM CALENDER INSPECTOR [facility] VLDL CHOLESTEROL 31(H) <=30 mg/dL 09/06/2023 9:35 PM [facility] TRAL [facility] PROVIDER ORDERED STATUS RANDOM 09/06/2023 9:35 PM [facility] Blood BLOOD SPECIMEN / Unknown Venipuncture / Unknown 09/06/2023 12:08 PM CALENDER INSPECTOR 09/06/2023 12:08 PM CALENDER INSPECTOR Radha Vasquez MD [facility]MI[facility] [address] [place] [address], * OCCULT BLOOD IFOBT STOOL (04/22/2022 2:40 PM CDT) STOOL BLOOD ,IFOBT Negative Negative 04/26/2022 2:53 PM CDT [facility] Stool STOOL SPECIMEN / Unknown Non-Blood / Unknown 04/22/2022 2:40 PM CDT 04/26/2022 2:41 PM CDT Radha Vasquez MD LABORATORY [facility] [address] [place] [address], from Last 3 Months or Most Recently [...] 12:13 PM 12/15/2008 12:13 PM Care Teams Nurses Medical Assistants Phlebotomists Relationship Specialty Start Date End Date Radha Vasquez MD PCP - General 09/27/09 [facility] [address], [place] [address] Ophthalmology Abrasive Grader Helper 09/05/21
[2024-04-04 14:13] VITALS: BP 176/102; PULSE 86; RESP 24; O2SAT 93
== END 2024-04-04 14:14 | disposition home or self-care (01) ==
PROVIDERS: Emergency Provider Family Medicine; PCP Family Medicine
DX: I63.9 Cerebral infarction, unspecified (principal)
CPT/HCPCS: 73660; 99284

== ENCOUNTER 2024-04-04 18:33 | Emergency (ER) | payer OTHER, SELFPAY ==
[2024-04-04] VITALS (7 sets, daily range): BP systolic 128–180; BP diastolic 80–93; PULSE 92–106; RESP 20–28; TEMP 36.7; O2SAT 88–95; BMI 44.3
--- NOTE | 2024-04-04 18:55 | ED.NEUROSD ---
HPI - Neuro Symptoms/Deficit General Chief Complaint: Neuro Symptoms/Altered Deficit Stated Complaint: possible stroke Time Seen by Provider: 04/04/24 18:37 History of Present Illness HPI Narrative: This 69-year-old female comes in with the evidence of speech change a occurred about an hour prior to arrival here. She was seen 4 days ago with some visual changes and MRI and CTA were ordered and did return with evidence of a stroke in the left occipital region. She is started on aspirin and spent a night in the hospital. She was discharged the next day. She came again this morning to the emergency department because she had fallen as she tripped over something. There was report by a nurse that her speech seemed altered at that time but the patient did not think this was the case. Her did not notice any speech change this morning. He is present with her now and it is clear that she has difficulty putting words together. Related Data Home Medications ?Medication ?Instructions ?Recorded ?Confirmed calcium carbonate 600 mg-vitamin 1 tab PO DAILY 10/05/22 03/31/24 D3 20 mcg (800 unit) tablet cholecalciferol (vitamin D3) 25 2,000 unit PO DAILY 10/05/22 03/31/24 mcg (1,000 unit) tablet fluticasone propionate 50 1 spray intranasal DAILY 10/05/22 03/31/24 mcg/actuation nasal spray,suspension folic acid 1 mg tablet 1 mg PO DAILY 10/05/22 03/31/24 gemfibrozil 600 mg tablet 600 mg PO BID 10/05/22 03/31/24 methotrexate sodium 2.5 mg tablet 5 mg PO .Every 7 Days 10/05/22 04/01/24 famotidine 20 mg tablet 20 mg PO BID 06/01/23 03/31/24 leflunomide 10 mg tablet 10 mg PO DAILY 06/01/23 03/31/24 losartan 100 mg tablet 100 mg PO DAILY 06/01/23 03/31/24 pantoprazole 40 mg tablet,delayed 40 mg PO BID 06/01/23 03/31/24 release valacyclovir 1 gram tablet 1,000 mg PO DAILY PRN 06/01/23 03/31/24 albuterol sulfate 2.5 mg/3 mL 2.5 mg inhalation Q6H PRN 03/31/24 03/31/24 (0.083 %) solution for nebulization ascorbic acid (vitamin C) 500 mg 500 mg PO DAILY 03/31/24 03/31/24 capsule finasteride 5 mg tablet 5 mg PO DAILY 03/31/24 03/31/24 magnesium gluconate 27 mg 27 mg PO DAILY 03/31/24 03/31/24 magnesium (500 mg) tablet minoxidil 2.5 mg tablet 2.5 mg PO DAILY 03/31/24 03/31/24 Previous Rx's ?Medication ?Instructions ?Recorded aspirin 81 mg chewable tablet 81 mg PO DAILY #90 tabs 04/01/24 (Children's Aspirin) Allergies Allergy/AdvReac Type Severity Reaction Status Date / Time amoxicillin Allergy Verified 04/04/24 19:02 Sulfa (Sulfonamide Allergy Verified 04/04/24 19:02 Antibiotics) gabapentin AdvReac Intermediate pain Verified 04/04/24 19:02 tolmetin AdvReac Mild gastric Verified 04/04/24 19:02 ulcer Raloxifene Allergy Uncoded 04/04/24 19:02 Review of Systems Status of ROS: Reports: 10 or more systems reviewed and unremarkable except as noted in History and below Narrative: Constitutional: No fevers, no weight gain or loss. Eyes: No discharge. No vision changes. HENT: No congestion, no sore throat, no ear pain. Cardiovascular: No chest pain, no palpitations. Respiratory: No shortness of breath, no wheezes, no cough. Gastrointestinal: No abdominal pain, no vomiting, no diarrhea. Genitourinary: No dysuria, no hematuria. Musculoskeletal: Normal range of motion. Skin: No rashes, no pruritis. Neurological: No dizziness, weakness, sensory change. She reports a change in her speech. She has difficulty with words as they are off and slurred. Endo/Heme/Allergies: No bruising or bleeding. No polydipsia. Pysch: no suicidality, no anxiety, no insomnia. All other systems reviewed and are negative. [facility] Medical History Migraine with aura ?G43.109 - Migraine with aura, not intractable, without status migrainosus (ICD-10) Acute gastric ulcer without hemorrhage or perforation ?K25.3 - Acute gastric ulcer without hemorrhage or perforation (ICD-10) Chronic bronchitis ?J42 - Unspecified chronic bronchitis (ICD-10) Family history of colon cancer ?Z80.0 - Family history of malignant neoplasm of digestive organs (ICD-10) Hair thinning ?L65.9 - Nonscarring hair loss, unspecified (ICD-10) HTN (hypertension) ?I10 - Essential (primary) hypertension (ICD-10) Morbid obesity ?E66.01 - Morbid (severe) obesity due to excess calories (ICD-10) Depression ?F32.A - Depression, unspecified (ICD-10) Type 2 diabetes mellitus without complications ?E11.9 - Type 2 diabetes mellitus without complications (ICD-10) Peripheral polyneuropathy ?G62.9 - Polyneuropathy, unspecified (ICD-10) Rheumatoid arthritis ?M06.9 - Rheumatoid arthritis, unspecified (ICD-10) Pulmonary hypertension ?I27.20 - Pulmonary hypertension, unspecified (ICD-10) Osteopenia ?M85.80 - Other specified disorders of bone density and structure, unspecified site (ICD-10) Sleep apnea ?G47.30 - Sleep apnea, unspecified (ICD-10) Hyperlipidemia ?E78.5 - Hyperlipidemia, unspecified (ICD-10) Gastric reflux ?K21.9 - Gastro-esophageal reflux disease without esophagitis (ICD-10) Surgical History History of rectal surgery ?Z98.890 - Other specified postprocedural states (ICD-10) History of pubovaginal sling ?Z96.0 - Presence of urogenital implants (ICD-10) History of total left knee replacement ?Z96.652 - Presence of left artificial knee joint (ICD-10) History of total right knee replacement ?Z96.651 - Presence of right artificial knee joint (ICD-10) Status post DILEEP-BSO ?Z90.710 - Acquired absence of both cervix and uterus (ICD-10) ?Z90.722 - Acquired absence of ovaries, bilateral (ICD-10) ?Z90.79 - Acquired absence of other genital organ(s) (ICD-10) H/O foot surgery ?Z98.890 - Other specified postprocedural states (ICD-10) History of excision of lesion ?Z98.890 - Other specified postprocedural states (ICD-10) ?Z87.2 - Personal history of diseases of the skin and subcutaneous tissue (ICD-10) Hx of cholecystectomy ?Z90.49 - Acquired absence of other specified parts of digestive tract (ICD-10) H/O esophagogastroduodenoscopy ?Z98.890 - Other specified postprocedural states (ICD-10) Hx of colonoscopy ?Z98.890 - Other specified postprocedural states (ICD-10) Family History Father Alcohol dependence Myocardial infarction Mother Atrial fibrillation Son Coagulation disorder Daughter Coagulation disorder Social History Narrative: Ino is . , Brady, is with her. Many of their children live in the area. She denies tobacco use, quit smoking in 1979, had smoked 1ppd before that. 3-4 alcoholic drinks per week. Denies recreational drug use. What is your current living situation?: I presently have a place to live Problems where you live: no known problems Problems where you live details: none In the past 12 months, utilities in danger of being shut off: no In past 12 months, lack of transportation kept you from medical appts, meetings, work, or getting things needed for daily living: no In the past 12 mos, have been you worried that your food would run out before you had money to buy more?: never true In the past 12 mos, the food you bought just didn't last and you didn't have money to buy more?: never true Highest level of school completed/degree received: high school graduate Smoking Status: Former smoker How often do you have a drink containing alcohol: 2-3 times a week Alcohol type: beer How many standard drinks containing alcohol do you have on a typical day: 1 or 2 How often do you have six or more drinks on one occasion: Never AUDIT-C Alcohol total score: 3 Non-prescribed substance use: denies use Caffeine: Yes (pot a coffee a day) How often does anyone, including family, friends and others, physically hurt you: never How often does anyone, including family, friends and others, insult or talk down to you: never How often does anyone, including family, friends and others, threaten you with harm: never How often does anyone, including family, friends and others, scream or curse at you: never service: No Exam Narrative: Exam Narrative: Constitutional: Well-developed, well-nourished, no acute distress. HEENT: Normocephalic, atraumatic. Neck: Normal range of motion. Nontender. Supple. Heart: Regular. No murmurs. Normal rate. Intact distal pulses. Lungs: Clear to auscultation. No chest discomfort. No wheezes, rhonchi, or rales. Abdomen: Normal bowel sounds. Nontender. No rebound tenderness. Genitalia: Deferred. Back: No midline tenderness. Normal range of motion. Extremities: Normal range of motion. No injury. Skin: Intact. No rash. Warm. No erythema or pallor. Neurologic: No altered sensation. No weakness. Alert and oriented. Slurred speech. [id number] is normal. Tongue was midline. It does appear that her right face is slightly drooping compared to the left. Small Parts Assembler strength is equal bilaterally. No pronator drift. She is able to raise each leg to my hand. Psychiatric: No suicidality. No anxiety or depression. No insomnia. Nursing notes and vitals signs are reviewed. Const: Vital Signs, click to edit/add: Vital Signs - 24 hr 04/04/24 18:49 04/04/24 19:03 04/04/24 19:16 Temperature 98.1 F Pulse Rate [Right Pulse Oximeter] 106 H 106 H Respiratory Rate 28 H 28 H 24 Blood Pressure [Le ft Forearm] 148/84 H 128/80 155/93 H Pulse Oximetry 88 90 90 Oxygen Delivery Me thod Room Air Room Air 04/04/24 19:40 04/04/24 19:45 04/04/24 20:00 Temperature Pulse Rate [Right Pulse Oximeter] 94 93 97 Respiratory Rate 24 22 22 Blood Pressure [Le ft Forearm] 171/89 H 165/81 H 167/88 H Pulse Oximetry 93 94 95 Oxygen Delivery Me thod Room Air Room Air 04/04/24 20:16 Temperature Pulse Rate [Right Pulse Oximeter] 92 Respiratory Rate 20 Blood Pressure [Le ft Forearm] 180/87 H Pulse Oximetry 95 Oxygen Delivery Me thod Course Vital Signs Vital signs: Initial Vital Signs Temperature 98.1 F 04/04/24 18:49 Temperature Source Temporal Artery Scan 04/04/24 18:49 Pulse Rate 106 H 04/04/24 18:49 Respiratory Rate 28 H 04/04/24 18:49 Blood Pressure 148/84 H 04/04/24 18:49 Blood Pressure Mean 105 04/04/24 18:49 Blood Pressure Position Sitting 04/04/24 18:49 Pulse Oximetry 88 04/04/24 18:49 Oxygen Delivery Method Room Air 04/04/24 18:49 Vital Signs Temperature 98.1 F 04/04/24 18:49 Pulse Rate 106 H 04/04/24 18:49 Respiratory Rate 28 H 04/04/24 18:49 Blood Pressure 148/84 H 04/04/24 18:49 Pulse Oximetry 88 04/04/24 18:49 Oxygen Delivery Method Room Air 04/04/24 18:49 Temperature 98.1 F 04/04/24 18:49 Pulse Rate 92 04/04/24 20:16 Respiratory Rate 20 04/04/24 20:16 Blood Pressure 180/87 H 04/04/24 20:16 Pulse Oximetry 95 04/04/24 20:16 Oxygen Delivery Method Room Air 04/04/24 20:00 MDM - Neuro Symptoms/Deficit MDM Narrative Medical decision making narrative: This patient comes in with change in her speech that occurred about an hour prior to arrival. She does have difficulty forming all words as her speech is slurred. She does appear to have a slight droop to her face. Initially her other neurologic exam features were all completely normal. This seemed to be a recurrence and worsening symptoms however so I did contact Stroke Neurology and Dr. Valle recommended MRI MRA. Immediately after I placed this order the nurse notified me that her symptoms that worsen. I went into examine her and she now had a significant facial droop and had a inability to move her right hand or infant and toddler teacher my hand with her right hand. So the MRI was canceled and the patient had CT CTA imaging of her head. This shows evidence of a left middle cerebral artery clot. The neurologist use the tele stroke to connect with the patient. Fortunately her symptoms significantly improved including her speech. Nevertheless she is a candidate for thrombectomy and interventional radiology agrees to have her transferred for this to occur. I spoke with Dr. Bains, emergency room physician who agrees to her transfer there. NIH stroke scale was assessed at 6 when the patient was having her most prominent symptoms. Time spent in critical care of this patient amounted to 60 minutes. Lab Data Labs: Lab Results 04/04/24 Range/Units 19:15 WBC 6.94 (4.50-11.00) K/uL RBC 4.19 (4.00-5.20) m/uL Hgb 12.1 (12.0-16.0) gm/dL Hct 39.5 (33.0-51.0) % MCV 94 (80-100) fL MCH 29 (26-34) pg MCHC 31 L (32-36) gm/dL RDW Coeff of Danilo 18.2 H (11.5-15.5) % Plt Count 360 (140-440) K/uL Neut % (Auto) 64.0 (42.0-72.0) % Lymph % (Auto) 18.9 L (20-44) % [place] % (Auto) 13.8 H (0.0-11.0) % Eos % (Auto) 2.3 (0.0-7.0) % Baso % (Auto) 0.7 (0.0-3.0) % Neut # (Auto) 4.44 (1.7-7.0) K/uL Lymph # (Auto) 1.30 (0.90-2.90) K/uL [place] # (Auto) 1.00 H (0.00-0.90) K/UL Eos # (Auto) 0.16 (0.00-0.50) K/uL Baso # (Auto) 0.05 (0.00-0.30) K/uL Abs Immat Gran (auto) 0.02 (0.00-0.30) K/uL Imm/Tot Granulo (auto) 0.3 % INR 0.97 (0.91-1.10) Sodium 140 (135-149) mmol/L Potassium 3.3 L (3.6-5.1) mmol/L Chloride 105 (96-114) mmol/L Carbon Dioxide 24 (20-32) mmol/L Anion Gap 11 (7-15) mEq/L BUN 13 (7-30) mg/dL Creatinine 0.7 (0.5-1.5) mg/dL Estimated Creat Clear 42.68 Estimated GFR 92 ml/min Glucose 88 (60-115) mg/dL Calcium 9.2 (8.4-10.6) mg/dL Imaging Data CT scan - head: Radiologist's impression: Redemonstration of subacute infarction involving the right posterior mesial temporal lobe/occipital lobe. No new sites of CT visualized ischemia elsewhere within the brain. CTA Head: ECG Data Attestation: I personally reviewed and interpreted this ECG as follows: Interpretation: Normal sinus rhythm. Rate is 94 beats per minute. There are no ST or T-wave abnormalities. Critical Care Time Critical Care Time Critical Care Time: Yes Attestation: The patient required my highest level preparedness to intervene emergently and I personally spent this critical care time directly and personally managing the patient. This critical care time included: Obtaining a history; Examining the patient; Pulse oximetry; Ordering and reviewing of studies; Arranging urgent treatment with development of a management plan; Evaluation of patients response to treatment; Frequent reassessment discussions with other providers. This critical care time was performed to assess and manage the high probability of imminent life-threatening deterioration that could result in multiorgan failure. It was exclusive of separate billable procedures and treating other patients and teaching time. Total Critical Care Time in Minutes: 60 Discharge Plan Discharge Clinical Impression: Cerebrovascular accident Patient Disposition: [facility] Prescriptions: No Action calcium carbonate-vitamin D3 600 mg-20 mcg (800 unit) tablet 1 tab PO DAILY cholecalciferol (vitamin D3) 25 mcg (1,000 unit) tablet 2,000 unit PO DAILY fluticasone propionate 50 mcg/actuation spray,suspension 1 spray intranasal DAILY folic acid 1 mg tablet 1 mg PO DAILY methotrexate sodium 2.5 mg tablet 5 mg PO .Every 7 Days Patient Comments: patient now taking 2 tablets weekly as of 04/08 gemfibrozil 600 mg tablet 600 mg PO BID valacyclovir 1 gram tablet 1,000 mg PO DAILY PRN leflunomide 10 mg tablet 10 mg PO DAILY famotidine 20 mg tablet 20 mg PO BID pantoprazole 40 mg tablet,delayed release (DR/EC) 40 mg PO BID losartan 100 mg tablet 100 mg PO DAILY albuterol sulfate 2.5 mg /3 mL (0.083 %) solution for nebulization 2.5 mg inhalation Q6H PRN Patient Comments: Uses BID scheduled minoxidil 2.5 mg tablet 2.5 mg PO DAILY finasteride 5 mg tablet 5 mg PO DAILY ascorbic acid (vitamin C) 500 mg capsule 500 mg PO DAILY magnesium gluconate 27 mg magnesium (500 mg) tablet 27 mg PO DAILY aspirin [Children's Aspirin] 81 mg Tablet,Chewable 81 mg PO DAILY Qty: 90 0RF Follow Up/Referrals: Radha Vasquez MD [Primary Care Provider] - Stand Alone Forms: [employer] Info Instructions
--- NOTE | 2024-04-04 19:18 | CRLHL7_ITS ---
For Patients: As a result of the Century Cures Act, medical imaging exams and procedure reports are released immediately into your electronic medical record. You may view this report before your referring provider. If you have questions, please contact your health care provider. INDICATION: Right-sided hemiparesis. TECHNIQUE: CT of the head without contrast. Coronal and sagittal reformats are included. COMPARISON: Brain MRI from 03/31/2024. FINDINGS: Hypoattenuation right posterior mesial temporal lobe and occipital lobe, corresponding to subacute infarction. No evidence of recent ischemia elsewhere within the brain. No loss of ross white matter differentiation. No hyperdense vessels to suggest intracranial thrombus. No acute intracranial hemorrhage. No mass effect or midline shift. No hydrocephalus or extra-axial collections. Scattered white matter hypoattenuation, typical for chronic microvascular ischemic change. No acute osseous abnormalities. Mastoid air cells and paranasal sinuses are clear. Normal soft tissues. IMPRESSION: 1. Redemonstration of subacute infarction involving the right posterior mesial temporal lobe/occipital lobe. No new sites of CT visualized ischemia elsewhere within the brain. Please note that all CT scans at this facility use dose modulation, iterative reconstruction, and/or weight-based dosing when appropriate to reduce radiation dose to as low as reasonably achievable. Dictated by Jaren Hay MD @ 04/04/2024 8:14:41 PM (Electronically Signed)
--- NOTE | 2024-04-04 19:18 | CRLHL7_ITS ---
For Patients: As a result of the Century Cures Act, medical imaging exams and procedure reports are released immediately into your electronic medical record. You may view this report before your referring provider. If you have questions, please contact your health care provider. INDICATION: Right-sided hemiparesis. TECHNIQUE: CTA head and neck with Isovue 370 contrast administered. Multiplanar reformats and MIP reconstructions are included. COMPARISON: None. FINDINGS: CTA head: The anterior cerebral arteries are patent.The middle cerebral arteries are patent.The posterior cerebral arteries are patent.The intracranial internal carotid arteries are patent.The intradural vertebral arteries and basilar arteries are patent.No aneurysm or vascular malformation. CTA neck: The aortic arch and great vessel origins are patent.The proximal subclavian arteries are patent.The common carotid arteries are patent.The internal carotid arteries are patent, with only minimal atherosclerotic changes at the internal carotid artery origins.The cervical vertebral arteries are patent.No evidence of cervical arterial dissection. Cervical soft tissues: No significant pathology. Osseous structures: Scattered spondylosis without high-grade bony spinal canal/neural foraminal stenosis. IMPRESSION: 1. No emergent large vessel occlusion or high-grade intracranial arterial stenosis. No other intracranial arterial vascular abnormalities. 2. No high-grade cervical arterial stenosis. No evidence of cervical arterial dissection. Please note that all CT scans at this facility use dose modulation, iterative reconstruction, and/or weight-based dosing when appropriate to reduce radiation dose to as low as reasonably achievable. Dictated by Jaren Hay MD @ 04/04/2024 8:22:06 PM (Electronically Signed)
[2024-04-04 19:26] LABS: Basophils Absolute Auto 0.05 K/uL (0.00-0.30); Basophils Percent Auto 0.7 % (0.0-3.0); Eosinophils Absolute Auto 0.16 K/uL (0.00-0.50); Eosinophils Percent Auto 2.3 % (0.0-7.0); Hematocrit 39.5 % (33.0-51.0); Hemoglobin* 12.1 gm/dL (12.0-16.0); Immature Granulocytes Abs Auto 0.02 K/uL (0.00-0.30); Immature Granulocytes Pct Auto 0.3 %; Lymphocytes Percent Auto 18.9 % (20-44); Mean Corpuscular HGB Conc 31 gm/dL (32-36); Mean Corpuscular Hemoglobin 29 pg (26-34); Mean Corpuscular Volume 94 fL (80-100); Monocytes Percent Auto 13.8 % (0.0-11.0); Neutrophils Absolute Auto 4.44 K/uL (1.7-7.0); Platelet Count* 360 K/uL (140-440); RDW Coefficient of Variation % 18.2 % (11.5-15.5); Red Blood Count 4.19 m/uL (4.00-5.20); White Blood Count* 6.94 K/uL (4.50-11.00)
[2024-04-04 19:31] LABS: Slide Review Reflex No
[2024-04-04 19:40] LABS: Chloride* 105 mmol/L (96-114); Potassium* 3.3 mmol/L (3.6-5.1); Sodium* 140 mmol/L (135-149)
[2024-04-04 19:43] LABS: Anion Gap 11 mEq/L (7-15); Blood Urea Nitrogen* 13 mg/dL (7-30); Carbon Dioxide* 24 mmol/L (20-32); Creatinine* 0.7 mg/dL (0.5-1.5); Est. Creatinine Clearance* 42.68; Estimated Glomerular Filt Rate 92 ml/min; Glucose* 88 mg/dL (60-115); INR 0.97 (0.91-1.10); Prothrombin Time 13.5 Seconds
[2024-04-04 19:44] LABS: Calcium* 9.2 mg/dL (8.4-10.6)
--- OUTSIDE RECORDS SUMMARY | 2024-04-04 20:26 | XMS_ITS | Referral Summary ---
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 Pulse 84 09/09/2013 8:30 PM [employer]PER[employer] Temperature 36.4 ??C (97.5 ??F) 08/16/2017 10:[address] Respiratory Rate 16 08/16/2017 10:45 AM [employer] SUPERVISOR Oxygen Saturation 92% 08/16/2017 10:45 AM [employer] SUPER[employer]OR Inhaled Oxygen Concentration - - Weight 107.5 kg (237 lb) 08/16/2017 7:06 AM [employer] SUPERVISOR Height 160 cm (5' 3) 08/16/2017 7:06 AM [employer] SUPERVISOR Body Mass Index 41.98 08/16/2017 7:06 AM [employer] SUPERVISOR Plan of Treatment Not on file Medical Devices Implanted Type Area Tentmaker Device Identifier Shelf Expiration Date Model / Serial / Lot Bone Cement Simplex Full Dose 6191-1-001 Implanted:Qty: 2 on 02/04/2013 by Steve Sommers MD at [facility] Right: Knee 11/05/2014 6191-1-001 / / [id number] Imp Baseplate Tibial Howm Tri 3 5520-B-300 Implanted:Qty: 1 on 02/04/2013 by Steve Sommers MD at [facility] Right: Knee 01/05/2018 5520-B-300 / / [id number] Imp Comp Femoral Howm Tri Cr Rt 3 5510-F-302 Implanted:Qty: 1 on 02/04/2013 by Steve Sommers MD at [facility] Right: Knee 09/07/2017 5510-F-302 / / ECEAL Imp Comp Patella Tri X3 Ps 29x8mm 5550-G-298 Implanted:Qty: 1 on 02/04/2013 by Steve Sommers MD at [facility] Right: Knee 07/07/2016 5550-G-298 / / [id number] Imp Insert Tibial Howm Tri 3x11mm 5530-G-311 Implanted:Qty: 1 on 02/04/2013 by Steve Sommers MD at [facility] Right: Knee 01/05/2018 5530-G-311 / / [id number] Imp Insert Tibial Howm Tri 3x09mm 5530-G-309 Implanted:Qty: 1 on 06/15/2014 by Steve Sommers MD at [facility] Left: Knee [employer] 05/14/2019 5530-G-309 / / [id number] Imp Comp Patella Strk Triathln Tri Bd W/Pa 32mm 5554-L-320 Implanted:Qty: 1 on 06/15/2014 by Steve Sommers MD at [facility] Left: Knee [employer] 12/12/2018 5554-L-320 / / [id number] Imp Comp Fem Strk Triathln Cr Bd W/Pa Lt 3 5517-F-301 Implanted:Qty: 1 on 06/15/2014 by Steve Sommers MD at [facility] Left: Knee [employer] 03/14/2019 5517-F-301 / / [id number] #3 Tibia Implanted:Qty: 1 on 06/15/2014 by Steve Sommers MD at [facility] Left: Knee [employer] 04/14/2019 5536-B-300 / / [id number] Advance Directives For more information, please contact: [phone] * Full Code (Latest Code Status on File) Date Activated Date Inactivated Comments 06/15/2014 6:53 PM 06/18/2014 5:45 PM * Full Code Date Activated Date Inactivated Comments 02/04/2013 7:40 PM 02/08/2013 4:52 PM Care Teams It Project Coordinator Relationship Specialty Start Date End Date Radha Vasquez MD PCP - General 10/24/07
--- OUTSIDE RECORDS SUMMARY | 2024-04-04 20:26 | XMS_ITS | Clinical Summary ---
Author Organization [facility] Address [address] [address] Care Team Providers Care Fountain Clerk Name Role Phone Radha Vasquez MD Primary Care Provider [phone] Source Comments You are receiving this document as you are listed as the primary care provider,follow-up provider, or the patient has been referred to you for consultation.This is in compliance with the Medicare and[facility] EHR Incentive Program,which states Providers who transition their patient to another setting of careor provider of care or refers their patient to another provider of care shouldprovide summary care record for each transition of care or referral. [employer] Allergies Active Allergy Reactions Criticality Noted Date [...] SunJul 14, 2015 2:37 PM Received from: [facility] Inhale 1 Puff. Reported on 09/11/2016 Indications: ELFEGO MATT SunJul 14, 2015 2:37 PM Received from: [facility] 01/15/2015 Active pantoprazole (PROTONIX) 40 MG tabletIndication s:ELFEGO MTAT SunJul 14, 2015 2:37 PM Received from: External Pharmacy Indications: PN: ELFEGO MATT SunJul 14, 2015 2:37 PM Received from: External Pharmacy 07/05/2015 Active gemfibrozil (LOPID) 600 MG tabletIndication s:ELFEGO MATT SunJul 14, 2015 2:37 PM Received from: [facility] Take 1 Tablet (600 mg) by mouth. Indications: ELFEGO MATT SunJul 14, 2015 2:37 PM Received from: [facility] 01/15/2015 Active Multiple Vitamins-Mineral s (MULTIVITAMIN ADULT [...] nodule 07/03/2018 Pain of left heel 12/03/2017 prison current use of therapeutic drug 2017 Vitamin [...] Description 03/12/2024 10:50 AM CDT Lab Visit [facility] [address] [address] 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) 03/12/2024 Notes/Orders Rheumatology at [facility] [address] [address] Max Lazaro MD from Last 3 Months Immunizations Name Administration Dates Next Due Flu Vac (3+ yrs) 06/02/2013, 2,06/14/2011,2010,06/02/2008 Flu Vac Preserv Free (3+yrs) 06/14/2011 [id number] 06/24/2009 HepA Adult (19+ yrs) 06/02/2008,11/29/2007 Influenza IIV3 (Trivalent) F luzone Highdose, 65+ Yrs (50126) 03/31/2022,03/26/2019 Influenza IIV4 (Quadrivalent ) 0.5mL (73340) 04/19/2017,05/17/2016,04/15/2016,2014,05/30/2014 Influenza IIV4 (Quadrivalent ) Fluad, 65+ [...] 161.3 cm (5' 3.5) 09/11/2016 1:16 PM BUYER BROKER Body Mass Index 44.46 09/11/2016 1:16 PM BUYER BROKER Plan of Treatment Upcoming Encounters Date Type Department Care Team (Late st Contact Info) Description 07/30/2024 9:15 AM BUYER BROKER Appointment Rheumatology at [facility] [address] [address] [place], [place] [id number] Max Lazaro MD [address] [place], [place] [id number] Health Maintenance Due Date Last Done Comments [...] ANTIBODY, WITH REFLEX Routine 09/11/2016 2:21 PM BUYER BROKER 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) from Last 3 Months or Most Recently Relevant to Health Maintenance Results * Creatinine / GFR (03/12/2024 10:57 AM CDT) [facility] Creatinine 0.66 0.55 - 1.02 mg/dL 03/12/2024 4:38 PM [facility] GFR, Estimated >60 >60 mL/min/1.7 3m2 03/12/2024 4:38 PM [facility] Blood Venipuncture / Unknown 03/12/2024 10:57 AM CDT 03/12/2024 10:57 AM CDT Max Lazaro MD LAB_1 [facility] [address] [place] [address], [facility] [email or web address]] * (ABNORMAL) Complete Blood Count-W/Diff (03/12/2024 10:57 AM CDT) [facility] WBC 5.0 3.5 - 10.5 x10(9)/L 03/12/2024 11:03 AM [facility] RBC 3.99 3.90 - 5.03 x10(12)/L 03/12/2024 11:03 AM [facility] Hemoglobin 11.7(L) 12.0 - 15.5 g/dL 03/12/2024 11:03 AM [facility] HCT 37.4 34.9 - 44.5 % 03/12/2024 11:03 AM [facility] MCV 93.7 80.0 - 100.0 fL 03/12/2024 11:03 AM [facility] MCH 29.3 27.6 - 33.3 pg 03/12/2024 11:03 AM [facility] MCHC 31.3(L) 31.5 - 35.2 g/dL 03/12/2024 11:03 AM [facility] RDW 17.3(H) 11.9 - 15.5 % 03/12/2024 11:03 AM [facility] Platelets 279 150 - 450 x10(9)/L 03/12/2024 11:03 AM [facility] Neutrophil Absolute 3.3 1.7 - 7.0 10(9)/L 03/12/2024 11:03 AM [facility] Lymphocyte Absolute 1.1 1.0 - 4.8 10(9)/L 03/12/2024 11:03 AM CDT [facility] Monocyte Absolute 0.4 0.2 - 0.9 10(9)/L 03/12/2024 11:03 AM CDT [facility] Eosinophil Absolute 0.2 0.0 - 0.5 10(9)/L 03/12/2024 11:03 AM [facility] Basophil Absolute 0.0 0.0 - 0.3 10(9)/L 03/12/2024 11:03 AM [facility] Immature Granulocyte % 0.2 0.0 - 0.5 % 03/12/2024 11:03 AM [facility] Blood Venipuncture / Unknown 03/12/2024 10:57 AM CDT 03/12/2024 10:57 AM CDT Max Lazaro MD LAB_1 Performing Organization Address City/[facility]/ZIP Co de Phone Number [facility] [address] [place] [address] * (ABNORMAL) AST (03/12/2024 10:57 AM CDT) Pathologist [facility] AST (SGOT) 60(H) 10 - 40 U/L 03/12/2024 4:38 PM [facility] Blood Venipuncture / Unknown 03/12/2024 10:57 AM CDT 03/12/2024 10:57 AM CDT Max Lazaro MD LAB_1 [facility] [address] [place] [address] * HCAB - Hepatitis C Virus Georgie with Reflex In-House (09/11/2016 2:21 PM BUYER BROKER) Pathologist [facility] Hepatitis C Antibody Nonreactive Nonreactive PN SOFT 09/11/2016 2:21 PM BUYER BROKER 09/11/2016 7:05 PM BUYER BROKER Narrative PN SOFT - 09/11/2016 8:24 PM BUYER BROKER Performed at [facility] [address] [place] [address] CLIA number [id number] Max Lazaro MD LAB_1 PN SOFT [address] [place] [address] from Last 3 Months or Most Recently Relevant to Health Maintenance Care Teams Fountain Clerk Relationship Specialty [place] [address] [place], [place] [phone] PCP - General 06/03/15
--- OUTSIDE RECORDS SUMMARY | 2024-04-04 20:26 | XMS_ITS | Encounter Summary ---
Author Organization [facility] Address [address] [address] Care Team Providers Care Rigging And Controls Aircraft Mechanic Name Role Phone Radha Vasquez MD Primary Care Provider [phone] Encounter Details Date Type Department Care Team (Late st Contact Info) Description 03/12/2024 Notes/Orders Rheumatology at [address] [address] Max Lazaro MD [address] [place], [place] [phone] Social History Tobacco Use Types Packs/Day Years [...] (Late Contact Info) Description 07/30/2024 9:15 AM DRY CLEANING CHECKER Appointment Rheumatology at [address] [address] Max Lazaro MD [address] [place] [address] documented as of this encounter Visit Diagnoses Not on filedocumented in this encounter Care Teams Rigging And Controls Aircraft Mechanic Relationship Specialty [place] [address] [place] [address] PCP - General 06/03/15 documented as of this encounter
--- OUTSIDE RECORDS SUMMARY | 2024-04-04 20:26 | XMS_ITS | Clinical Summary ---
Author Organization [facility] Address [address] [place] [address] Care Team Providers Care Floor Framer Name Role Phone Radha Vasquez MD Primary [...] Comments Blood Pressure 164/98 08/16/2017 10:45 AM CARTOGRAPHIC ENGINEER Pulse 84 09/09/2013 8:30 PM CARTOGRAPHIC ENGINEER Temperature 36.4 ??C (97.5 ??F) 08/16/2017 10:[address] Respiratory Rate 16 08/16/2017 10:45 AM CARTOGRAPHIC ENGINEER Oxygen Saturation 92% 08/16/2017 10:45 AM CARTOGRAPHIC ENGINEER Inhaled Oxygen Concentration - - Weight 107.5 kg (237 lb) 08/16/2017 7:06 AM CARTOGRAPHIC ENGINEER Height 160 cm (5' 3) 08/16/2017 7:06 AM CARTOGRAPHIC ENGINEER Body Mass Index 41.98 08/16/2017 7:06 AM CARTOGRAPHIC ENGINEER Plan of Treatment Not on file Medical Devices Implanted Type Area Bolting Machine Operator Device Identifier Shelf Expiration Date Model / Serial / Lot Bone Cement Simplex Full Dose 6191-1-001 Implanted:Qty: 2 on 02/04/2013 by Steve Sommers MD at [facility] Right: Knee 11/05/2014 6191-1-001 / / [id number] Imp Baseplate Tibial Howm Tri 3 5520-B-300 Implanted:Qty: 1 on 02/04/2013 by Steve Sommers MD at [facility] Right: Knee 01/05/2018 5520-B-300 / / [id number] Imp Comp Femoral Howm Tri Cr Rt 3 5510-F-302 Implanted:Qty: 1 on 02/04/2013 by Steve Sommers MD at [facility] Right: Knee 09/07/2017 5510-F-302 / / ECEAL Imp Comp Patella Tri X3 Ps 29x8mm 5550-G-298 Implanted:Qty: 1 on 02/04/2013 by Steve Sommers MD at [facility] Right: Knee 07/07/2016 5550-G-298 / / [id number] Imp Insert Tibial Howm Tri 3x11mm 5530-G-311 Implanted:Qty: 1 on 02/04/2013 by Steve Sommers MD at [facility] Right: Knee 01/05/2018 5530-G-311 / / [id number] Imp Insert Tibial Howm Tri 3x09mm 5530-G-309 Implanted:Qty: 1 on 06/15/2014 by Steve Sommers MD at [facility] Left: Knee [employer] 05/14/2019 5530-G-309 / / [id number] Imp Comp Patella Strk Triathln Tri Bd W/Pa 32mm 5554-L-320 Implanted:Qty: 1 on 06/15/2014 by Steve Sommers MD at [facility] Left: Knee [employer] 12/12/2018 5554-L-320 / / [id number] Imp Comp Fem Strk Triathln Cr Bd W/Pa Lt 3 5517-F-301 Implanted:Qty: 1 on 06/15/2014 by Steve Sommers MD at [facility] Left: Knee [employer] 03/14/2019 5517-F-301 / / [id number] #3 Tibia Implanted:Qty: 1 on 06/15/2014 by Steve Sommers MD at [facility] Left: Knee [employer] 04/14/2019 5536-B-300 / / [id number] Advance Directives For more information, please contact: [phone] * Full Code (Latest Code Status on File) Date Activated Date Inactivated Comments 06/15/2014 6:53 PM 06/18/2014 5:45 PM * Full Code Date Activated Date Inactivated Comments 02/04/2013 7:40 PM 02/08/2013 4:52 PM Care Teams Floor Framer Relationship Specialty Start Date End Date Radha Vasquez MD PCP - General 10/24/07
--- OUTSIDE RECORDS SUMMARY | 2024-04-04 20:26 | XMS_ITS | Continuity of Care Document ---
Author Organization [facility] Address [address] [address] [place] [address] Phone Care Team Providers Care Manager Quality Name Role Phone Ángel Morel MD, Robi Marcelo Unavailabl e Allergies, Adverse Reactions, Alerts Substance Reaction Status Criticality Sulfa (Sulfonamide Antibiotics) Active No Information Medications Medication Instructions Dosage Effective Dates (start - stop) Status Comments Calcio Lakesha 500 mg tablet take 1 by Oral route once - Active ACIDOPHILUS (unknown strength) take on orally everyday Not Available - Active Vitamin C 500 mg tablet take 1 by Oral route every day 1 - Active Protonix 40 mg Tab Take one tablet by mouth two times per day - Active Aspirin Low Dose 81 mg Tab, Delayed Release Take 1 tablet by mouth daily - Active multivitamin Cap every day - Active Vitamin D 1,000 unit Cap Use as directed - Active folic acid 400 mcg Tab Take one Tablet by mouth daily - Active PROVENTIL 4 MGTABLET Use as directed - Active Advair Diskus 100 mcg-50 mcg/dose for Inhalation Use as directed - Active Lopid 600 mg Tab Take one tablet by mouth two times per day - Active methotrexate sodium 2.5 mg Tab Use as directed - Active Procedures Procedure Date Ugi Endo; W/bx 1/mx Level Iv-surg Path Gross/micro 14 Colonoscopy Flex; Dx (sep Pro) 14 Ugi Endo; W/bx 1/mx Level Iv-surg Path Gross/micro 14 Immunocytochemistry, Each Antibody Ugi Endo; W/bx 1/mx Colorectal Ca Screen Hi Risk I 09 Level Iv-surg Path Gross/micro 09 Offic Cons New/estab Mod-hi 60 09 G8447 Advance Directives Directive Yes / No Effective Date File Name No Information Encounters Encounter Description Practice Location Reason(s) For Visit Diagnoses Date Provider Providers Copied on Encounter [facility], [address] [address], [place], [place], [id number], [place] tel:[phone] [facility] No Information 4 Ángel Rosenbaum. [address] [facility], [facility], [place], [id number] , [place]. tel:[phone] [facility], [address] [address], [place], [place], [id number], [place] tel:[phone] [facility] Gastric ulcerHiatal herniaBarrett's esophagusGastric/an tral Ulcer UnspecHiatal Hernia 4 Gary Rosas . [address] [facility], [place], [place], [id number] , [place]. tel:[phone] Referring Provider: [place] [address], [address] [place], [address]. tel:[phone] [facility], [address] [address], [place], [place], [id number], [place] tel:[phone] [facility] Gastric/antral Ulcer UnspecHiatal HerniaGastric/antra l Ulcer UnspecDiverticulosi s Of ColonColon Cancer ScreeningGastroduod enal Dis NosGastric/antral Ulcer Unspec 4 Gary Rosas . [address] [facility], [address], [place], [place], [id number] , [place]. [phone] Referring Provider: Radha Armstrong, [address] [facility], [place], [address]. tel:[phone] [facility], [address] [address], [place], [place], [address], [place] tel:[phone] [facility] No Information Mar-0 5-201 0 Daniel Balderas. [address] [facility], [facility] [address], [place], [place], [id number] , [place]. [phone] [facility], [address] [address], [place] [facility] [place], [id number], [place] tel:[phone] [facility] Diverticulosis Of ColonHiatal HerniaGastroesophag eal RefluxFamily Hx GI Tract CancerHiatal HerniaGastroesophag eal RefluxDiverticulosi s Of Colon Apr-0 2200 9 Daniel Balderas. [address] [place] [address] [address], [place], [place], [id number] , [place]. [phone] Referring Provider: Radha Armstrong, [address] [facility], [place], [address]. tel:[phone] Offic Cons New/estab Mod-hi 60 [facility], [address] [address], [place], [place], [id number], [place] tel:[phone] [facility] Acid reflux (chief complaint) Gastroesophageal RefluxFamily Hx GI Tract Cancer Mar-1 3-200 9 Daniel Balderas. [address] [facility], [facility] [address], [place], [place], [id number] , [place]. [phone] Referring Provider: Radha Vasquez MD [address], [address] [facility], [place], [address]. tel:[phone] Family History Family Member Type Diagnosis Age At Onset First degree family history Problem (finding) Cholelit hasis First degree family history Problem (finding) Cancer - First degree family history Problem (finding) Colon Po lyps First degree family history Problem (finding) cancer o f colon Payers Payer name Insurance type Covered alliance party ID Authordinesh grimaldo(s) [employer] [place] BL [id number] [facility] CI [id number] Social History Type Description Quantity Date Captured Comments Sex Female Smoking Status No Information Chief Complaint And Reason For Visit No Information Reason For Referral Reason For Referral No Information History Of Present Illness Encounter Date Complaint History Of Prese nt Illness No Information Functional Status Date Functional Assessmen t No Information Instructions Date Instruction Additional Infor mation Hiatal Hernia Related to Gastr ic ulcer Ulcers Related to Gastr ic ulcer Assessments Type Assessment Date No Information Patient Care Teams Name Effective Dates (start - stop) Status Members No Information
--- OUTSIDE RECORDS SUMMARY | 2024-04-04 20:26 | XMS_ITS | Clinical Summary ---
Author Organization [facility] Address [place], [place] [address] Care Team Providers Care Technical Marketing Consultant Name Role Phone Radha Vasquez MD Primary [...] nasal solution (FLONASE)Indication s:Environmental allergies Inhale 1 [place] to both nostrils once daily. 9.9 mL [...] Type Department Care Team Description 04/04/[address] [address] Radha Vasquez MD update 04/04/2024 Nurse Triage [address] [address] Radha Vasquez MD triage 04/03/[address] [address] Radha Vasquez MD Follow Up (Appointment ) 04/02/2024 Office Visit [facility] [address] [place] [phone] Anay Osman MD Telehealth ([facility] ) 04/01/2024 3:30 PM CDT Ancillary Procedure [place] [facility] [address] [place] [address] Arrived 04/01/2024 Telephone [facility] [place] [facility] [place] [address] [place] [phone] Brendan Barton MD Stroke 04/01/2024 Office Visit [facility] [address] [facility] [address] [place] [address] Anay Osman MD Telehealth ([facility]) 03/31/2024 Orders Only [facility] Scanner 1 scan: (1-Ord) [facility], MR HEAD/BRAIN WO/W CON, 03/31/2024 03/31/2024 Orders Only [facility] Scanner 1 scan: (1-Ord) [facility], HEAD/BRAIN WITHOUT CONTRAST, 03/31/2024 03/31/2024 Office Visit [facility] [address] [facility] [address] [place] [address] Anay Osman MD Telehealth ([facility] ) 03/31/2024 Nurse Triage [address] [address] Radha Vasquez MD Eye Problem 03/31/[address] [address] Radha Vasquez MD 03/06/[address] [address] Radha Vasquez MD Refill Request (Losartan) from Last 3 Months Immunizations Name Administration Dates Next Due AMB Influenza, IIV4 PF (=>6 mos Flulaval,Fluzone Fluarix)(Flu Clinic Only) 04/19/2017 COVID-19 vaccine (Moderna 50 mcg/0.5mL) 12YO+ BIVALENT PF, MDV 04/10/2022 COVID-19 vaccine (Kommerstate.ru-Bio NTech 30mcg/0.3mL) PF MDV 09/17/2020 Hepatitis A [...] Alive Daughter Alissa Alive Father (Age 70's) [place] Maternal Grandfather Maternal Grandmother Mother Alive Paternal [...] Comments Blood Pressure 129/70 09/21/2023 8:48 AM MEDICAL PRACTICE MANAGER Pulse 77 09/21/2023 8:48 AM MEDICAL PRACTICE MANAGER Temperature 36.6 ??C (97.9 ??F) 07/31/2023 2:34 PM CS T Respiratory Rate 16 09/21/2023 8:48 AM MEDICAL PRACTICE MANAGER Oxygen Saturation 95% 09/21/2023 8:48 AM MEDICAL PRACTICE MANAGER Inhaled Oxygen Concentration - - Weight 114.1 kg (251 lb 8 oz) 09/06/2023 11:08 A M MEDICAL PRACTICE MANAGER Height 160 cm (5' 3) 09/06/2023 11:08 AM MEDICAL PRACTICE MANAGER Body Mass Index 44.55 09/06/2023 11:08 AM MEDICAL PRACTICE MANAGER Plan of Treatment Upcoming Encounters Date Type Department Care Team (Late st Contact Info) Description 04/07/2024 10:00 AM CDT Office Visit [facility] [address] [place] [address] [place] [address] [place], [place] [phone] Health Maintenance Due Date Last Done Comments [...] history exists Medical Devices Implanted Type Area Cottage Parent Device Identifier Shelf Expiration Date Model / Serial / Lot Sling Miniarc - [id number] Implanted:Qty: 1 on 12/15/2008 at [facility] [employer] 10/22/2011 [id number] / / [id number] Description:IMPLANTED MID-UR ETHRA Arthrex Screw Implanted:Qty: 1 on 07/13/2023 by Sebastien Robles DPM at [facility] Right: Foot [employer] [id number] / / Procedures Procedure Name Priority Date/Time Associated Diagnosis Comments ECHO TTE COMPLETE W CONTRAST W BUBBLE Routine 04/01/2024 4:23 PM CDT Stroke (HC) SCAN-MRI INTERPRETATION 03/31/2024 12:00 AM CDT SCAN-CT INTERPRETATION 12:00 AM CDT SDNA-FIT EXTERNAL (COLOGUARD) Routine 09/20/2023 6:00 AM MEDICAL PRACTICE MANAGER Screening for colon cancer XR MAMMO JD BILAT SCREEN Routine 09/14/2023 9:09 AM MEDICAL PRACTICE MANAGER Screening breast examination XR DXA BONE DENSITY 2 SITES AXIAL Routine 09/14/2023 8:57 AM MEDICAL PRACTICE MANAGER Osteopenia, unspecified location Post-menopausal LIPID PANEL W REFLEX MEASURED LDL Routine 09/06/2023 12:08 PM MEDICAL PRACTICE MANAGER Hyperlipidemia, unspecified hyperlipidemia type OCCULT BLOOD IFOBT [...] CDT ECHOCARDIOGRAM INO SMITH ? Accession#: ?? [id number] : ?1955 69 years Study Date: ?? 04/01/2024 3:29:01 PM Gender: F ?BP: ? 160/91 mmHg Height: 160.00 cm ?BSA: ?2.13 m? ? ? Weight: 114.00 kg ?Tech: ? MBF ? Referring MD: PROVIDER REFERRING Site: ? [facility] Reading Location: [facility] Patient Location: Inpatient. Procedure: 2D w/ Bubbles, [...] documentation: 4 ml diluted Definity, lot #[id number], [facility]# [id number] was administered peripherally to enhance visualization of all left ventricular segments. . This study was interpreted by an [facility] accredited facility. CC: HIM (med records) [facility], Med/Surg - IP [facility]. ??Final ?? Procedure Note Brendan Barton MD - 04/01/2024 ECHOCARDIOGRAM INO SMITH : 1955 69 years Study Date: 04/01/2024 3:29:01 PM Gender: F BP: 160/91 mmHg Height: 160.00 cm BSA: 2.13 m? ? ? Weight: 114.00 kg Tech: ENRIQUE Referring MD: PROVIDER REFERRING Site: [facility] Reading Location: Mobile [facility] Patient Location: Inpatient. Procedure: 2D w/ [...] documentation: 4 ml diluted Definity, lot #[id number], [facility]#[id number] was administered peripherally to enhance visualization of allleft ventricular segments. . This study was interpreted by an [facility] accredited facility. CC: HIM (med records) [facility], Med/Surg - IP [facility]. Final Provider Referring ECHO ORD * SCAN-MRI INTERPRETATION (03/31/2024 12:00 AM CDT) Anatomical Region Laterality Modality Other Scanner OTHER * SCAN-CT INTERPRETATION (03/31/2024 12:00 AM CDT) Anatomical Region Laterality Modality Other Scanner OTHER * SDNA-FIT EXTERNAL (COLOGUARD) (09/20/2023 6:00 AM MEDICAL PRACTICE MANAGER) NONINV COLON CA DNA+OCC BLD SCRN STL-IMP Negative Negative 09/26/2023 7:35 PM CDT [employer] (CLIA #:[id number]) Comment: NEGATIVE TEST RESULT. A negative Cologuard [...] cancer. ??Following a negative Cologuard result, the [place] Cancer Society and U.S. Multi-Society Task Force screening guidelines recommend a Cologuard re-screening interval of 3 years. References: [place] Cancer Society Guideline for Colorectal Cancer Screening: https://www.cancer.org/cancer/iberf-ugixca-udmfru/rljocudqn-uokzbcmqm-qntnydi/ac s-rec ommendations.html.; Matti GUSMAN, Eugenio CEBALLOS, Stephanie PerdomoK, Colorectal Cancer Screening: Recommendations for Physicians and Patients from the U.S. Multi-Society Task Force on Colorectal Cancer Screening , Am J Gastroenterology 2017; 112:2444-0445. TEST DESCRIPTION: Composite algorithmic analysis of stool [...] (Bryant Gay al, N Engl J Med 2014;370(14):8348-3193.) Cologuard may produce a false negative or false positive result (no colorectal cancer or precancerous polyp present at colonoscopy follow up). A negative Cologuard test result does not guarantee the absence of CRC or advanced adenoma (pre-cancer). The current Cologuard screening interval is every 3 years. ([place] Cancer Society and U.S. Multi-Society Task Force). Cologuard performance data in a 10,000 patient pivotal study using colonoscopy as the reference method can be accessed at the following location: www.gauzz/results. Additional description of the Cologuard test process, warnings and precautions can be found at www.NurseLiability.com.Down. Stool specimen (specimen) (Rectum) 09/20/2023 6:00 AM MEDICAL PRACTICE MANAGER 09/21/2023 12:29 PM MEDICAL PRACTICE MANAGER Radha Vasquez MD URINE [employer] (CLIA #:[id number]) [place] [address], * XR MAMMO JD BILAT SCREEN (09/14/2023 9:09 AM MEDICAL PRACTICE MANAGER) Anatomical Region Laterality Modality BREASTS, Breast Left, Breast Right Bilateral Mammography 09/14/2023 9:09 AM MEDICAL PRACTICE MANAGER Impressions 09/14/2023 12:28 PM MEDICAL PRACTICE MANAGER IMPRESSION: No evidence of malignancy. Recommend routine [...] health insurance. Recommendations are based on the [place] [employer] Appropriateness Criteria. Patients with a BI-RADS category of 0 should follow the recommendations for further evaluation before considering supplemental screening. Narrative 09/14/2023 12:28 PM MEDICAL PRACTICE MANAGER EXAM: MAMMOGRAM SCREENING JD BILATERAL LOCATION: [facility] DATE: 09/14/2023 INDICATION: Asymptomatic. Screening Mammogram. COMPARISON: 09/11/22, 09/08/21 BREAST DENSITY: There are scattered areas of fibroglandular density. FINDINGS: Tomosynthesis craniocaudal and mediolateral oblique views were obtained. There is no evidence for spiculated masses, architectural distortion, asymmetry or suspicious calcifications. Procedure Note Angel Aguirre MD - 09/14/2023 EXAM: MAMMOGRAM SCREENING JD BILATERAL LOCATION: [facility] DATE: 09/14/2023 INDICATION: Asymptomatic. Screening Mammogram. [...] health insurance. Recommendations are based on the [place] [employer] Appropriateness Criteria. Patients with a BI-RADS category of 0 should follow the recommendations for further evaluation before considering supplemental screening. Radha Vasquez MD MAMMO * XR DXA BONE DENSITY 2 SITES AXIAL (09/14/2023 8:57 AM MEDICAL PRACTICE MANAGER) Anatomical Region Laterality Modality Spine, HIPS, HIPL, HIPR Other 09/14/2023 8:57 AM MEDICAL PRACTICE MANAGER Impressions 09/14/2023 12:03 PM MEDICAL PRACTICE MANAGER IMPRESSION: Low bone density (OSTEOPENIA). T score meets the WHO criteria for low bone density (osteopenia) at one or more measured sites. The risk of osteoporotic fracture increases approximately two-fold for each standard deviation decrease in T-score. Narrative 09/14/2023 12:03 PM MEDICAL PRACTICE MANAGER EXAM: BONE DENSITY LOCATION: [facility] [place] DATE: 09/14/2023 INDICATION: Other specified disorders of [...] PA-C - 09/14/2023 EXAM: BONE DENSITY LOCATION: [facility] [place] DATE: 09/14/2023 INDICATION: Other specified disorders of [...] W REFLEX MEASURED LDL (09/06/2023 12:08 PM MEDICAL PRACTICE MANAGER) [facility] CHOLESTEROL,TOTAL 195 100 - 199 mg/dL 09/06/2023 9:35 PM MEDICAL PRACTICE MANAGER [facility] Comment: Cholesterol, Total Reference Ranges Desirable <200 mg/dL Borderline 200-239 mg/dL High >=240 mg/dL TRIGLYCERIDES 154(H) <150 mg/dL 09/06/2023 9:35 PM MEDICAL PRACTICE MANAGER [facility] HDL CHOLESTEROL 51 >40 mg/dL 9:35 PM MEDICAL PRACTICE MANAGER [facility] NON-HDL CHOLESTEROL 144 <145 mg/dl 09/06/2023 9:35 PM MEDICAL PRACTICE MANAGER [facility] CHOL/HDL RATIO 3.82 <4.50 09/06/2023 9:35 PM MEDICAL PRACTICE MANAGER [facility] LDL CHOLESTEROL 113 <=130 mg/dL 09/06/2023 9:35 PM MEDICAL PRACTICE MANAGER [facility] VLDL CHOLESTEROL 31(H) <=30 mg/dL 09/06/2023 9:35 PM [facility] PROVIDER ORDERED STATUS RANDOM 09/06/2023 9:35 PM [facility] Blood BLOOD SPECIMEN / Unknown Venipuncture / Unknown 09/06/2023 12:08 PM MEDICAL PRACTICE MANAGER 09/06/2023 12:08 PM MEDICAL PRACTICE MANAGER Radha Vasquez MD [facility] [address] [place] [address], * OCCULT BLOOD IFOBT STOOL (04/22/2022 2:40 PM CDT) STOOL BLOOD ,IFOBT Negative Negative 04/26/2022 2:53 PM CDT [facility] Stool STOOL SPECIMEN / Unknown Non-Blood / Unknown 04/22/2022 2:40 PM CDT 04/26/2022 2:41 PM CDT Radha Vasquez MD LABORATORY [facility] [address] [place] [address], from Last 3 Months or Most Recently [...] 12:13 PM 12/15/2008 12:13 PM Care Teams Technical Marketing Consultant Relationship Specialty Start Date End Date Radha Vasquez MD PCP - General 09/27/09 [facility] [address] [address] Ophthalmology Mold Mover 09/05/21
--- OUTSIDE RECORDS SUMMARY | 2024-04-04 20:26 | XMS_ITS | Encounter Summary ---
Author Organization [facility] Address [address], [place] [address] Care Team Providers Care Registered Dental Assistant Name Role Phone Radha Vasquez MD Primary Care Provider [phone] Encounter Details Date Type Department Care Team (Late Contact Info) Description 03/12/2024 10:50 AM CDT Lab Visit [address] [address] Rheumatoid arthritis involving multiple sites [...] (Late Contact Info) Description 07/30/2024 9:15 AM ANIMAL STICKER Appointment Rheumatology at [facility] [address] [address] Max Lazaro MD [address] [place] [address] documented as of this encounter [...] Complete Blood Count-W/Diff (03/12/2024 10:57 AM CDT) [facility] WBC 5.0 3.5 - 10.5 x10(9)/L 03/12/2024 11:03 AM [facility] RBC 3.99 3.90 - 5.03 x10(12)/L 03/12/2024 11:03 AM [facility] Hemoglobin 11.7(L) 12.0 - 15.5 g/dL 03/12/2024 11:03 AM [facility] HCT 37.4 34.9 - 44.5 % 03/12/2024 11:03 AM [facility] MCV 93.7 80.0 - 100.0 fL 03/12/2024 11:03 AM [facility] MCH 29.3 27.6 - 33.3 pg 03/12/2024 11:03 AM [facility] MCHC 31.3(L) 31.5 - 35.2 g/dL 03/12/2024 11:03 AM [facility] RDW 17.3(H) 11.9 - 15.5 % 03/12/2024 11:03 AM [facility] Platelets 279 150 - 450 x10(9)/L 03/12/2024 11:03 AM [facility] Neutrophil Absolute 3.3 1.7 - 7.0 10(9)/L 03/12/2024 11:03 AM [facility] Lymphocyte Absolute 1.1 1.0 - 4.8 10(9)/L 03/12/2024 11:03 AM CDT [facility] Monocyte Absolute 0.4 0.2 - 0.9 10(9)/L 03/12/2024 11:03 AM CDT [facility] Eosinophil Absolute 0.2 0.0 - 0.5 10(9)/L 03/12/2024 11:03 AM CDT [facility] Basophil Absolute 0.0 0.0 - 0.3 10(9)/L 03/12/2024 11:03 AM CDT [facility] Immature Granulocyte % 0.2 0.0 - 0.5 % 03/12/2024 11:03 AM CDT [facility] Blood Venipuncture / Unknown 03/12/2024 10:57 AM CDT 03/12/2024 10:57 AM CDT Max Lazaro MD LAB_1 Performing Organization Address [facility]/ZIP Co de Phone Number [facility] [address] [place] [address] * (ABNORMAL) AST (03/12/2024 10:57 AM CDT) AST (SGOT) 60(H) 10 - 40 U/L 03/12/2024 4:38 PM CDT [facility] Blood Venipuncture / Unknown 03/12/2024 10:57 AM CDT 03/12/2024 10:57 AM CDT Max Lazaro MD LAB_1 Performing Organization Address [facility]/ZIP Co de Phone Number [facility] [address] [place] [address] * Creatinine / GFR (03/12/2024 10:57 AM CDT) Creatinine 0.66 0.55 - 1.02 mg/dL 03/12/2024 4:38 PM T [facility] GFR, Estimated >60 >60 mL/min/1.7 3m2 03/12/2024 4:38 PM CDT [facility] Blood Venipuncture / Unknown 03/12/2024 10:57 AM CDT 03/12/2024 10:57 AM CDT Max Lazaro MD LAB_1 [facility] [address] [place] [address] documented in this encounter Visit Diagnoses Diagnosis 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) documented in this encounter Care Teams Registered Dental Assistant Relationship Specialty [place] [address] [place] [address] PCP - General 06/03/15 documented as of this encounter
--- OUTSIDE RECORDS SUMMARY | 2024-04-04 20:26 | XMS_ITS | Encounter Summary ---
Author Organization [facility] Address [address] [place] [address]. [place] [address] Care Team Providers Care Second Hand Name Role Phone Radha Vasquez MD Primary Care Provider + Encounter Details Date Type Department Care Team (Late st Contact Info) Description 05/22/2014 [facility] [address] [place] [address] Steve Sommers MD [facility] [address] [facility] [address] [place] [phone] Preoperative examination, unspecified (Primary Dx) Social History [...] Resistant Staph Aureus PCR (06/04/2014 12:10 PM TAMPING MACHINE OPERATOR) Specimen Description [facility] Methicillin Resist/Sens S. aureus [...] nasal colonization. FDA approved assay performed using [employer] GeneXpert(R) real-time PCR. NEG [facility] 06/04/2014 12:1 0 PM TAMPING MACHINE OPERATOR 06/04/2014 12:25 PM TAMPING MACHINE OPERATOR Steve Sommers MD LAB - MICRO GENERAL ORDERABLES [facility] documented in this encounter Visit Diagnoses Diagnosis Preoperative examination, unspecified- Primary documented in this encounter Care Teams Second Hand Relationship Specialty Start Date End Date Radha Vasquez MD PCP - General 10/24/07 documented as of this encounter
== END 2024-04-04 20:35 | disposition short-term general hospital (02) ==
PROVIDERS: Emergency Provider Emergency Medicine Emergency Medical Services; PCP Family Medicine
DX: I63.9 Cerebral infarction, unspecified (principal); M79.674 Pain in right toe(s); W18.30XA Fall on same level, unspecified, initial encounter
CPT/HCPCS: 36415; 70450; 70496; 70498; 73660; 80048; 85025; 85610; 93005; 99284; 99285; 99291; Q9967

== ENCOUNTER 2024-04-04 20:28 | Outpatient (CLI) | payer OTHER, SELFPAY ==
--- OUTSIDE RECORDS SUMMARY | 2024-04-06 08:31 | XMS_ITS | Clinical Summary ---
Author Organization [facility] Address [address], [place] [address] Care Team Providers Care Health And Physical Education Teacher Name Role Phone Radha Vasquez MD Primary Care Provider [phone] Source Comments You are receiving this document as you are listed as the primary care provider,follow-up provider, or the patient has been referred to you for consultation.This is in compliance with the Medicare and[facility] Cent[facility] EHR Incentive Program,which states Providers who transition their patient to another setting of careor provider of care or refers their patient to another provider of care shouldprovide summary care record for each transition of care or referral. Blinkit Allergies Active Allergy Reactions Criticality Noted Date [...] SunJul 14, 2015 2:37 PM Received from: Home Chef Inhale 1 Puff. Reported on 09/11/2016 Indications: ELFEGO MATT SunJul 14, 2015 2:37 PM Received from: Home Chef 01/15/2015 Active pantoprazole (PROTONIX) 40 MG tabletIndication s:ELFEGO MATT SunJul 14, 2015 2:37 PM Received from: External Pharmacy Indications: PN: ELFEGO MATT SunJul 14, 2015 2:37 PM Received from: External Pharmacy 07/05/2015 Active gemfibrozil (LOPID) 600 MG tabletIndication s:ELFEGO MATT SunJul 14, 2015 2:37 PM Received from: Home Chef Take 1 Tablet (600 mg) by mouth. Indications: ELFEGO MATT SunJul 14, 2015 2:37 PM Received from: Home Chef 01/15/2015 Active Multiple Vitamins-Mineral s (MULTIVITAMIN ADULT [...] Description 03/12/2024 10:50 AM CDT Lab Visit [facility] [address] [place] [address] 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) 03/12/2024 Notes/Orders Rheumatology at [facility] [address] [address] Max Lazaro MD from Last 3 Months Immunizations Name Administration Dates Next Due Flu Vac (3+ yrs) 06/02/2013, 2,06/14/2011,2010,06/02/2008 Flu Vac Preserv Free (3+yrs) 06/14/2011 [id number] 06/24/2009 HepA Adult (19+ yrs) 06/02/2008,11/29/2007 Influenza IIV3 (Trivalent) F luzone Highdose, 65+ Yrs (48413) 03/31/2022,03/26/2019 Influenza IIV4 (Quadrivalent ) 0.5mL (12285) 04/19/2017,05/17/2016,04/15/2016,2014,05/30/2014 Influenza IIV4 (Quadrivalent ) Fluad, 65+ [...] 161.3 cm (5' 3.5) 09/11/2016 1:16 PM CHIEF ENGINEER PRODUCTION Body Mass Index 44.46 09/11/2016 1:16 PM CHIEF ENGINEER PRODUCTION Plan of Treatment Upcoming Encounters Date Type Department Care Team (Late st Contact Info) Description 07/30/2024 9:15 AM CHIEF ENGINEER PRODUCTION Appointment Rheumatology at [facility] [address] [address] [place], [place] [id number] Max Lazaro MD [address] [place], [place] [address] Health Maintenance Due Date Last Done Comments Diabetes: Eye Exam 1955 Diabetes: Foot Exam 1955 Diabetes: Lipid Panel 1955 Diabetes: Urine Microalbumin 1955 Colon Cancer Screening Plan Due 11/08/2013 [...] ANTIBODY, WITH REFLEX Routine 09/11/2016 2:21 PM CHIEF ENGINEER PRODUCTION 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) from Last 3 Months or Most Recently Relevant to Health Maintenance Results * Creatinine / GFR (03/12/2024 10:57 AM CDT) Creatinine 0.66 0.55 - 1.02 mg/dL 03/12/2024 4:38 PM [facility] GFR, Estimated >60 >60 mL/min/1.7 3m2 03/12/2024 4:38 PM [facility] Blood Venipuncture / Unknown 03/12/2024 10:57 AM CDT 03/12/2024 10:57 AM CDT Max Lazaro MD LAB_1 [facility] [address] [place] [address] * (ABNORMAL) Complete Blood Count-W/Diff (03/12/2024 10:57 AM CDT) WBC 5.0 3.5 - 10.5 x10(9)/L 03/12/2024 11:03 AM [facility] RBC 3.99 3.90 - 5.03 x10(12)/L 03/12/2024 11:03 AM [facility] Hemoglobin 11.7(L) 12.0 - 15.5 g/dL 03/12/2024 11:03 AM [facility] HCT 37.4 34.9 - 44.5 % 03/12/2024 11:03 AM [facility] MCV 93.7 80.0 - 100.0 fL 03/12/2024 11:03 AM [facility] MCH 29.3 27.6 - 33.3 pg 03/12/2024 11:03 AM [facility] MCHC 31.3(L) 31.5 - 35.2 g/dL 03/12/2024 11:03 AM [facility] RDW 17.3(H) 11.9 - 15.5 % 03/12/2024 11:03 AM [facility] Platelets 279 150 - 450 x10(9)/L 03/12/2024 11:03 AM [facility] Neutrophil Absolute 3.3 1.7 - 7.0 10(9)/L 03/12/2024 11:03 AM [facility] Lymphocyte Absolute 1.1 1.0 - 4.8 10(9)/L 03/12/2024 11:03 AM CDT [facility] Monocyte Absolute 0.4 0.2 - 0.9 10(9)/L 03/12/2024 11:03 AM CDT [facility] Eosinophil Absolute 0.2 0.0 - 0.5 10(9)/L 03/12/2024 11:03 AM CDT [facility] Basophil Absolute 0.0 0.0 - 0.3 10(9)/L 03/12/2024 11:03 AM T [facility] Immature Granulocyte % 0.2 0.0 - 0.5 % 03/12/2024 11:03 AM CDT [facility] Blood Venipuncture / Unknown 03/12/2024 10:57 AM CDT 03/12/2024 10:57 AM CDT Max Lazaro MD LAB_1 Performing Organization Address [facility]/ZIP Co de Phone Number [facility] [address] [place] [address] * (ABNORMAL) AST (03/12/2024 10:57 AM CDT) Pathologist [facility] AST (SGOT) 60(H) 10 - 40 U/L 03/12/2024 4:38 PM CDT [facility] Blood Venipuncture / Unknown 03/12/2024 10:57 AM CDT 03/12/2024 10:57 AM CDT Max Lazaro MD LAB_1 Performing Organization Address City/[facility]/ZIP Co de Phone Number [facility] [address] [place] [address] * HCAB - Hepatitis C Virus Georgie with Reflex In-House (09/11/2016 2:21 PM CHIEF ENGINEER PRODUCTION) Hepatitis C Antibody Nonreactive Nonreactive PN SOFT 09/11/2016 2:21 PM CHIEF ENGINEER PRODUCTION 09/11/2016 7:05 PM CHIEF ENGINEER PRODUCTION Narrative PN SOFT - 09/11/2016 8:24 PM CHIEF ENGINEER PRODUCTION Performed at [address] [place] [address] CLIA number [id number] Max Lazaro MD LAB_1 PN SOFT [address] [place] [address] from Last 3 Months or Most Recently Relevant to Health Maintenance Care Teams Health And Physical Education Teacher Relationship Specialty [place] [address] [place] [address] PCP - General 06/03/15
--- OUTSIDE RECORDS SUMMARY | 2024-04-06 08:31 | XMS_ITS | Continuity of Care Document ---
Author Organization [facility] Address [address] [address] [place] [address] Phone Care Team Providers Care Floor Coverer Apprentice Name Role Phone Ángel Morel MD, oRbi Marcelo Unavailabl e Allergies, Adverse Reactions, Alerts [...] Provider Providers Copied on Encounter [facility], [address] [address], [place], [place], [address], [place] tel:[phone] [facility] No Information 4 Ángel Rosenbaum. [address] [facility], [facility], [place], [address] , [place]. tel:[phone] [facility], [address] [address], [place], [place], [address], [place] tel:[phone] [facility] Gastric ulcerHiatal herniaBarrett's esophagusGastric/an tral Ulcer UnspecHiatal Hernia 4 Gary Rosas . [address] [facility], [place], [place], [address] , [place]. tel:[phone] Referring Provider: Radha Vasquez [place] R, [address] [place], [address]. tel:[phone] [facility], [address] [address], [place], [place], [address], [place] tel:[phone] [facility] Gastric/antral Ulcer UnspecHiatal HerniaGastric/antra l Ulcer UnspecDiverticulosi s Of ColonColon Cancer ScreeningGastroduod enal Dis NosGastric/antral Ulcer Unspec 4 Gary Rosas . [address] [facility], [place], [place], [address] , [place]. [phone] Referring Provider: Radha Armstrong, [address] [facility], [place], [address]. tel:[phone] [facility], [address] [address], [place], [place], [address], [place] tel:[phone] [facility] No Information Mar-0 5-201 0 Daniel Balderas. [address] [facility], [facility] [address], [place], [place], [id number] , [place]. [phone] [facility], [address] [address], [place] [facility] [place], [address], [place] tel:[phone] [facility] Diverticulosis Of ColonHiatal HerniaGastroesophag eal RefluxFamily Hx GI Tract CancerHiatal HerniaGastroesophag eal RefluxDiverticulosi s Of Colon Apr-0 2200 9 Daniel Balderas. [address] [place] [address] [address], [place], [place], [address] , [place]. [phone] Referring Provider: Radha Armstrong, [address] [facility], [place], [address]. tel:[phone] Offic Cons New/estab Mod-hi 60 [facility], [address] [address], [place], [place], [address], [place] tel:[phone] [facility] Acid reflux (chief complaint) Gastroesophageal RefluxFamily Hx GI Tract Cancer Mar-1 3-200 9 Daniel Balderas. [address] [facility], [facility] [address], [place], [place], [address] , [place]. [phone] Referring Provider: Radha Vasquez MD R, [address] [facility], [place], [address]. tel:[phone] Family History Family Member Type Diagnosis Age At Onset First degree family history Problem (finding) Cholelit hasis First degree family history Problem (finding) Cancer - First degree family history Problem (finding) Colon Po lyps First degree family history Problem (finding) cancer o f colon Payers Payer name Insurance type Covered alliance party ID Authordinesh grimaldo(s) [employer] [place] BL [id number] [employer] CI [id number] Social History Type Description Quantity Date Captured [...]
--- OUTSIDE RECORDS SUMMARY | 2024-04-06 08:31 | XMS_ITS | Encounter Summary ---
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
--- OUTSIDE RECORDS SUMMARY | 2024-04-06 08:31 | XMS_ITS | Clinical Summary ---
Author Organization [facility] Address [address] [place] [address] Care Team Providers Care Spinning Doffer Name Role Phone Radha Vasquez MD Primary [...] Comments Blood Pressure 164/98 08/16/2017 10:45 AM FIELD HORTICULTURAL SPECIALTY GROWER Pulse 84 09/09/2013 8:30 PM FIELD HORTICULTURAL SPECIALTY GROWER Temperature 36.4 ??C (97.5 ??F) 08/16/2017 10:[address] Respiratory Rate 16 08/16/2017 10:45 AM FIELD HORTICULTURAL SPECIALTY GROWER Oxygen Saturation 92% 08/16/2017 10:45 AM FIELD HORTICULTURAL SPECIALTY GROWER Inhaled Oxygen Concentration - - Weight 107.5 kg (237 lb) 08/16/2017 7:06 AM FIELD H[employer]IC[employer] Height 160 cm (5' 3) 08/16/2017 7:06 AM FIELD HORTICULTURAL SPECIALTY GROWER Body Mass Index 41.98 08/16/2017 7:06 AM FIELD HORTICULTURAL SPECIALTY [employer]OWER Plan of Treatment Not on file Medical Devices Implanted Type Area Monkey Keeper Device Identifier Shelf Expiration Date Model / Serial / Lot Bone Cement Simplex Full Dose 6191-1-001 Implanted:Qty: 2 on 02/04/2013 by Steve Sommers MD at [facility] Right: Knee 11/05/2014 6191-1-001 / / [id number] Imp Baseplate Tibial Howm Tri 3 5520-B-300 Implanted:Qty: 1 on 02/04/2013 by Steve Sommers MD at [facility] Right: Knee 01/05/2018 5520-B-300 / / ILOWD Imp Comp Femoral Howm Tri Cr Rt 3 5510-F-302 Implanted:Qty: 1 on 02/04/2013 by Steve Sommers MD at [facility] Right: Knee 09/07/2017 5510-F-302 / / ECEAL Imp Comp Patella Tri X3 Ps 29x8mm 5550-G-298 Implanted:Qty: 1 on 02/04/2013 by Steve Sommers MD at [facility] Right: Knee 07/07/2016 5550-G-298 / / [id number] Imp Insert Tibial Howm Tri 3x11mm 5530-G-311 Implanted:Qty: 1 on 02/04/2013 by Steve Sommers MD at [facility] Right: Knee 01/05/2018 5530-G-311 / / [id number] Imp Insert Tibial Howm Tri 3x09mm 5530-G-309 Implanted:Qty: 1 on 06/15/2014 by Steve Sommers MD at [facility] Left: Knee [employer] 05/14/2019 5530-G-309 / / [id number] Imp Comp Patella Strk Triathln Tri Bd W/Pa 32mm 5554-L-320 Implanted:Qty: 1 on 06/15/2014 by Steve Sommers MD at [facility] Left: Knee [employer] 12/12/2018 5554-L-320 / / [id number] Imp Comp Fem Strk Triathln Cr Bd W/Pa Lt 3 5517-F-301 Implanted:Qty: 1 on 06/15/2014 by Steve Sommers MD at [facility] Left: Knee [employer] 03/14/2019 5517-F-301 / / [id number] #3 Tibia Implanted:Qty: 1 on 06/15/2014 by Steve Sommers MD at [facility] Left: Knee [employer] 04/14/2019 5536-B-300 / / [id number] Advance Directives For more information, please contact: [phone] * Full Code (Latest Code Status on File) Date Activated Date Inactivated Comments 06/15/2014 6:53 PM 06/18/2014 5:45 PM * Full Code Date Activated Date Inactivated Comments 02/04/2013 7:40 PM 02/08/2013 4:52 PM Care Teams Spinning Doffer Relationship Specialty Start Date End Date Radha Vasquez MD PCP - General 10/24/07
--- OUTSIDE RECORDS SUMMARY | 2024-04-06 08:31 | XMS_ITS | Referral Summary ---
Author Organization [facility] Address [address] [place] [address] Care Team Providers Care Teaching Associate Name Role Phone Radha Vasquez MD Primary [...] Comments Blood Pressure 164/98 08/16/2017 10:45 AM PUTTY REMOVER Pulse 84 09/09/2013 8:30 PM PUTTY REMOVER Temperature 36.4 ??C (97.5 ??F) 08/16/2017 10:[address] Respiratory Rate 16 08/16/2017 10:45 AM PUTTY REMOVER Oxygen Saturation 92% 08/16/2017 10:45 AM PUTTY REMOVER Inhaled Oxygen Concentration - - Weight 107.5 kg (237 lb) 08/16/2017 7:06 AM PUTTY REMOVER Height 160 cm (5' 3) 08/16/2017 7:06 AM PUTTY REMOVER Body Mass Index 41.98 08/16/2017 7:06 AM PUTTY REMOVER Plan of Treatment Not on file Medical Devices Implanted Type Area Textile Supervisor Device Identifier Shelf Expiration Date Model / Serial / Lot Bone Cement Simplex Full Dose 6191-1-001 Implanted:Qty: 2 on 02/04/2013 by Steve Sommers MD at [facility] Right: Knee 11/05/2014 6191-1-001 / / [id number] Imp Baseplate Tibial Howm Tri 3 5520-B-300 Implanted:Qty: 1 on 02/04/2013 by Steve Sommers MD at [facility] Right: Knee 01/05/2018 5520-B-300 / / ILOWD Imp Comp Femoral Howm Tri Cr Rt 3 5510-F-302 Implanted:Qty: 1 on 02/04/2013 by Steve Sommers MD at [facility] Right: Knee 09/07/2017 5510-F-302 / / ECEAL Imp Comp Patella Tri X3 Ps 29x8mm 5550-G-298 Implanted:Qty: 1 on 02/04/2013 by Steve Sommers MD at [facility] Right: Knee 07/07/2016 5550-G-298 / / [id number] Imp Insert Tibial Howm Tri 3x11mm 5530-G-311 Implanted:Qty: 1 on 02/04/2013 by Steve Sommers MD at [facility] Right: Knee 01/05/2018 5530-G-311 / / [id number] Imp Insert Tibial Howm Tri 3x09mm 5530-G-309 Implanted:Qty: 1 on 06/15/2014 by Steve Sommers MD at [facility] Left: Knee [employer] 05/14/2019 5530-G-309 / / [id number] Imp Comp Patella Strk Triathln Tri Bd W/Pa 32mm 5554-L-320 Implanted:Qty: 1 on 06/15/2014 by Steve Sommers MD at [facility] Left: Knee [email or web address] 12/12/2018 5554-L-320 / / EHXXF Imp Comp Fem Strk Triathln Cr Bd W/Pa Lt 3 5517-F-301 Implanted:Qty: 1 on 06/15/2014 by Steve Sommers MD at [facility] Left: Knee [email or web address] 03/14/2019 5517-F-301 / / [id number] #3 Tibia Implanted:Qty: 1 on 06/15/2014 by Steve Sommers MD at [facility] Left: Knee [employer] 04/14/2019 5536-B-300 / / [id number] Advance Directives For more information, please contact: [phone] * Full Code (Latest Code Status on File) Date Activated Date Inactivated Comments 06/15/2014 6:53 PM 06/18/2014 5:45 PM * Full Code Date Activated Date Inactivated Comments 02/04/2013 7:40 PM 02/08/2013 4:52 PM Care Teams Teaching Associate Relationship Specialty Start Date End Date Radha Vasquez MD PCP - General 10/24/07
--- OUTSIDE RECORDS SUMMARY | 2024-04-06 08:31 | XMS_ITS | Encounter Summary ---
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 WBC 5.0 3.5 - 10.5 x10(9)/L 03/12/2024 11:03 AM [facility] RBC 3.99 3.90 - 5.03 x10(12)/L 03/12/2024 11:03 AM [facility] Hemoglobin 11.7(L) 12.0 - 15.5 g/dL 03/12/2024 11:03 AM [facility] HCT 37.4 34.9 - 44.5 % 03/12/2024 11:03 AM [facility] MCV 93.7 80.0 - 100.0 fL 03/12/2024 11:03 AM [facility] MCH 29.3 27.6 - 33.3 pg 03/12/2024 11:03 AM [facility] MCHC 31.3(L) 31.5 - 35.2 g/dL 03/12/2024 11:03 AM [facility] RDW 17.3(H) 11.9 - 15.5 % 03/12/2024 11:03 AM [facility] Platelets 279 150 - 450 x10(9)/L 03/12/2024 11:03 AM [facility] Neutrophil Absolute 3.3 1.7 - 7.0 10(9)/L 03/12/2024 11:03 AM [facility] Lymphocyte Absolute 1.1 1.0 - 4.8 10(9)/L 03/12/2024 11:03 AM CDT [facility] Monocyte Absolute 0.4 0.2 - 0.9 10(9)/L 03/12/2024 11:03 AM CDT [facility] Eosinophil Absolute 0.2 0.0 - 0.5 10(9)/L 03/12/2024 11:03 AM CDT [facility] Basophil Absolute 0.0 0.0 - 0.3 10(9)/L 03/12/2024 11:03 AM CDT [facility] Immature Granulocyte % 0.2 0.0 - 0.5 % 03/12/2024 11:03 AM CDT [facility] Blood Venipuncture / Unknown 03/12/2024 10:57 AM CDT 03/12/2024 10:57 AM CDT Max Lazaro MD LAB_1 Performing Organization Address [facility]/ZIP Co de Phone Number [facility] [address] [place] [address] * (ABNORMAL) AST (03/12/2024 10:57 AM CDT) AST (SGOT) 60(H) 10 - 40 U/L 03/12/2024 4:38 PM CDT [facility] Blood Venipuncture / Unknown 03/12/2024 10:57 AM CDT 03/12/2024 10:57 AM CDT Max Lazaro MD LAB_1 Performing Organization Address [facility]/ZIP Co de Phone Number [facility] [address] [place] [address] * Creatinine / GFR (03/12/2024 10:57 AM CDT) Creatinine 0.66 0.55 - 1.02 mg/dL 03/12/2024 4:38 PM T [facility] GFR, Estimated >60 >60 mL/min/1.7 3m2 03/12/2024 4:38 PM CDT [facility] Blood Venipuncture / Unknown 03/12/2024 10:57 AM CDT 03/12/2024 10:57 AM CDT Max Lazaro MD LAB_1 [facility] [address] [place] [address] documented in this encounter Visit Diagnoses Diagnosis 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) documented in this encounter Care Teams Stone Sawyer Relationship Specialty [place] [address] [place] [address] PCP - General 06/03/15 documented as of this encounter
--- OUTSIDE RECORDS SUMMARY | 2024-04-06 08:31 | XMS_ITS | Encounter Summary ---
Author Organization [facility] Address [address] [place] [address]. [place] [address] Care Team Providers Care Business Development Recruiter Name Role Phone Radha Vasquez MD Primary Care Provider + Encounter Details Date Type Department Care Team (Late st Contact Info) Description 05/22/2014 [facility] [address] [place] [address] Steve Sommers MD [facility] [address] [facility] [address] [place] [phone] Preoperative examination, unspecified (Primary Dx) Social History [...] Resistant Staph Aureus PCR (06/04/2014 12:10 PM TRANSCRIPTER) Specimen Description [facility] Methicillin Resist/Sens S. aureus PCR Negative [...] nasal colonization. FDA approved assay performed using [employer] GeneXpert(R) real-time PCR. NEG [facility] 06/04/2014 12:1 0 PM TRANSCRIPTER 06/04/2014 12:25 PM TRANSCRIPTER Steve Sommers MD LAB - MICRO GENERAL ORDERABLES [facility] documented in this encounter Visit Diagnoses Diagnosis Preoperative examination, unspecified- Primary documented in this encounter Care Teams Business Development Recruiter Relationship Specialty Start Date End Date Radha Vasquez MD PCP - General 10/24/07 documented as of this encounter
--- OUTSIDE RECORDS SUMMARY | 2024-04-06 08:31 | XMS_ITS | Clinical Summary ---
Author Organization [employer] [facility] Address [place], [place] [address] Care Team Providers Care Individualized Education Plan Aide Name Role Phone Radha Vasquez MD Primary [...] Take one tablet by mouth every morning 024 Discontinued(*M edication adjustment) MULTI-VITAMIN ORAL None Entered 024 Discontinued(*M edication adjustment) magnesium gluconate (MAGONATE) 500 mg Tab Take 1 tablet by mouth once daily. 0 3 Suspended folic acid 1 mg tabletIndications: Rheumatoid arthritis(714.0) Take 1 tablet by mouth once daily. 90 tablet 3 6 Suspended Additional Information diclofenac 1 % topical (VOLTAREN) gel 7 024 Discontinued(*M edication adjustment) L. acidophilus/Bifid. animalis (DAILY PROBIOTIC ORAL) Take 1 capsule by mouth once daily. Suspended ascorbic acid, vitamin C, 500 mg cap Take 1,000 mg by mouth. 024 Discontinued(*M edication adjustment) NebulizerIndicatio ns:Chronic bronchitis, unspecified chronic bronchitis type (HC) Nebulizer, disposable neb kit x 4, reuseable neb kit x 1, mask x 1, filters x 1. Frequency of use: daily; Medication: albuterol. Length of need: prn months 1 Each 2 Suspended Additional Information leflunomide (ARAVA) 10 mg tablet 3 024 Discontinued(*M edication adjustment) methotrexate (RHEUMATREX) 2.5 mg tablet Take 4 Tablets (10 mg) by mouth. Takes once weekly 0 3 024 Discontinued(*M edication adjustment) albuterol (PROVENTIL) 0.083 % neb solutionIndication s:Chronic bronchitis, unspecified chronic bronchitis type (HC) Inhale 3 mL (2.5 mg) via a nebulizer every 6 hours if needed for Cough 1st choice. 180 mL 3 Suspended Additional Information losartan (COZAAR) 100 mg tabletIndications: HTN (hypertension) Take 1 Tablet (100 mg) by mouth once daily. 90 Tablet 3 3 024 Discontinued finasteride (Proscar) 5 mg tablet Take 5 mg by mouth once daily. Suspended famotidine (PEPCID) 20 mg tabletIndications: Gastric reflux Take 1 Tablet (20 mg) by mouth two times daily. 180 Tablet 3 4 Suspended Additional Information fluticasone (50 mcg per actuation) nasal solution (FLONASE)Indicatio ns:Environmental allergies Inhale 1 Emmett to both nostrils once daily. 9.9 mL 3 4 Suspended Additional Information fluticasone propion-salmeteroL (Advair Diskus) 250-50 mcg/Dose diskus inhalerIndications :Moderate persistent asthma without complication Inhale 1 Puff by mouth every 12 hours. 180 Each 4 4 Suspended Additional Information gemfibroziL (LOPID) 600 mg tabletIndications: Hyperlipidemia, unspecified hyperlipidemia type Take 1 Tablet (600 mg) by mouth two times daily before meals. 180 Tablet 4 4 Suspended Additional Information pantoprazole (Protonix) 40 mg delayed-release tabletIndications: Gastric reflux Take 1 Tablet (40 mg) by mouth two times daily before meals. 180 Tablet 3 4 024 Discontinued(Du plicate therapy (E-cancel not sent)) valACYclovir (VALTREX) 1 gram tabletIndications: Cold sore TAKE 2 TABLETS AT ONSET OF COLD SORE, REPEAT 2 TABLETS IN 12 HOURS. REPEAT FOR EACH NEW FLARE. 16 Tablet 5 4 Suspended Additional Information pantoprazole (PROTONIX) 40 mg delayed-release tabletIndications: Gastric ulcer, unspecified chronicity, unspecified whether gastric ulcer hemorrhage or perforation present Take 1 Tablet (40 mg) by mouth two times daily before meals. Take 30-60 minutes before a meal/food twice a day. 180 Tablet 4 Suspended Additional Information losartan (COZAAR) 100 mg tabletIndications: HTN (hypertension) Take 1 tablet by mouth once daily 90 Tablet 1 4 Suspended Additional Information ascorbic acid, vitamin C, (VITAMIN C) 500 mg tablet Take 500 mg by mouth once daily. Suspended calcium carbonate-vitamin D3, 600 mg-400 unit, (Calcium 600 + D) 600 mg-10 mcg (400 unit) tablet Take 1 Tablet by mouth two times daily with meals. Suspended leflunomide (ARAVA) 10 mg tablet Take 10 mg by mouth once daily. Suspended methotrexate (RHEUMATREX) 2.5 mg tablet Take 5 mg by mouth once weekly. Suspended multivitamins-mine rals-lutein (Multivitamin 50 Plus) tab tablet Take 1 Tablet by mouth once daily. Suspended diclofenac topical (VOLTAREN) 1 % gel Apply topically to affected area(s) 4 times daily if needed (pain). Suspended minoxidiL (LONITEN) 2.5 mg tab Take 2.5 mg by mouth once daily. Suspended Active Problems Problem Noted Date Diagnosed Date Acute ischemic stroke 04/04/2024 Acute gastric ulcer without hemorrhage or perfor [...] Date Type Department Care Team Description 04/04/2024 8:58 PM CDT - Present Hospital Encounter [facility] [address] [place] [address] Jair Arredondo DO Malik, Muhammad Ibrahim, MD 04/04/2024 Travel 04/04/2024 Office Visit [facility] [address] [place] [address] Edgar Sawant MD 04/04/[address] [address] Radha Vasquez MD update 04/04/2024 Nurse Triage [facility] [id number] [place] [id number] Radha Vasquez MD triage 04/03/2024 Telephone [facility] [id number] [place] [phone] Radha Vasquez MD Follow Up (Appointment ) 04/02/2024 Office Visit [facility] [address] [facility] [address] [place] [address] Anay Osman MD Telehealth ([facility] ) 04/01/2024 3:30 PM CDT Ancillary Procedure [facility] [address] [place] [address] 04/01/2024 Telephone [facility] [place] [address] [place] [address] Brendan Barton MD Stroke 04/01/2024 Office Visit [facility] [address] [facility] [address] [place] [address] Anay Osman MD Telehealth ([facility]) 03/31/2024 Orders Only [facility] Scanner 1 scan: (1-Ord) [facility] CT ANGIO NECK, 03/31/2024 03/31/2024 Orders Only [facility] Scanner 1 scan: (1-Ord) [facility], CT ANGIO NECK, 03/31/2024 03/31/2024 Orders Only [facility] Scanner 1 scan: (1-Ord) [facility], MR HEAD/BRAIN WO/W CON, 03/31/2024 03/31/2024 Orders Only [facility] Scanner 1 scan: (1-Ord) [facility], HEAD/BRAIN WITHOUT CONTRAST, 03/31/2024 03/31/2024 Office Visit [facility] [address] [place] [address] Anay Osman MD Telehealth ([facility] ) 03/31/2024 Nurse Triage [address] [address] Radha Vasquez MD Eye Problem 03/31/[address] [address] Radha Vasquez MD 03/06/[address] [address] Radha Vasquez MD Refill Request (Losartan) from Last 3 Months Immunizations Name Administration Dates Next Due AMB Influenza, IIV4 PF (=>6 mos Flulaval,Fluzone Fluarix)(Flu Clinic Only) 04/19/2017 COVID-19 vaccine (Moderna 50 mcg/0.5mL) 12YO+ BIVALENT PF, MDV 04/10/2022 COVID-19 vaccine ([employer] NTech 30mcg/0.3mL) PF, MDV 09/17/2020 Hepatitis A [...] Alive Daughter Alissa Alive Father (Age 70's) [place] Maternal Grandfather Maternal Grandmother Mother Alive Paternal [...] of Communication with Friends and Fami ly 0 04/05/2024 Financial Resource Strain Answer Date R ecorded Difficulty of Paying Living Expenses 3 04/05/2024 Difficulty of Paying Living Expenses Not on file 04/05/2024 Food Insecurity Answer Date Recorded Worried About Running Out of Food in the Last Ye ar 1 04/05/2024 Transportation Needs Answer Date Record ed Lack of Transportation (Medical) 1 04/05/2024 Housing Stability Answer Date Recorded Unable to Pay for Housing in the Last Year 1 04/05/2024 Sex and Gender Information Value Date Recorded [...] Sign Reading Time Taken Comments Blood Pressure 175/93 04/06/2024 7:00 AM CDT Pulse 67 04/06/2024 7:15 AM CDT Temperature 36.9 ??C (98.4 ??F) 04/06/2024 6:00 AM CD T Respiratory Rate 19 04/06/2024 6:00 AM CDT Oxygen Saturation 97% 04/06/2024 7:15 AM CDT Inhaled Oxygen Concentration - - Weight 113 kg (249 lb 1.9 oz) 04/06/2024 4:00 AM CDT Height 165.1 cm (5' 5) 04/05/2024 1:00 AM CDT Body Mass Index 41.46 04/05/2024 1:00 AM CDT Plan of Treatment Upcoming Encounters Date Type Department Care Team (Late st Contact Info) Description 04/07/2024 10:00 AM CDT Office Visit [facility] [id number] [place] [address] [phone] [place] [address] [place] [address] Health Maintenance Due Date Last Done Comments Hepatitis C screening for ag e 18-01/02/1973 COVID-19 vaccine series (2022-24 season) 2024 11/01/2023, 05/02/2023, 11/13/2022, Additional history exists Influenza for age 65+ [...] 09/19/2026 09/20/2023, 12/05/2017 Lipids for age 45-75 04/05/2029 04/05/2024, 09/06/2023, 02/12/2023, Additional history exists Tetanus booster 11/13/2032 11/13/2022, 12/14, 11/07/2005, Additional history exists Zoster (shingles) series for age 50+ Completed 03/29/2018, 11/27/2017, 05/30/2012 Pneumococcal series for age 65+ Completed 04/21/2019, 03/29/2018, 12/04/2008 Fecal testing non-DNA (FIT,FOBT,iFOBT) for age 45-75 Discontinued 04/22/2022, 02/18/2021 Tdap Completed 11/13/2022, 12/27/2012 DEXA/DXA scan for age 65+ Completed 2023, 04/03/2018, 03/27/2016, Additional history exists Medical Devices Implanted Type Area Portal Developer Device Identifier Shelf Expiration Date Model / Serial / Lot Delano Villegas - [id number] Implanted:Qty: 1 on 12/15/2008 at [facility] [employer] 10/22/2011 [id number] / / [id number] Description:IMPLANTED MID-UR ETHRA [employer] Screw Implanted:Qty: 1 on 07/13/2023 by Sebastien Robles DPM at [facility] Right: Foot [employer] [id number] / / Procedures The patient is currently admitted. The information in this section might not be complete until the patient is discharged. Procedure Name Priority Date/Time Associated Diagnosis Comments BASIC METABOLIC PANEL RUY 04/06/2024 5:40 AM CDT MAGNESIUM Early AM 04/06/2024 5:40 AM CDT GLUCOSE METER Timed 04/06/2024 4:32 AM CDT GLUCOSE METER Timed 04/06/2024 12:35 AM CDT SCAN-CARDIAC STRIP 04/05/2024 8: 45 PM CDT GLUCOSE METER Timed 04/05/2024 8:20 PM CDT GLUCOSE METER Timed 04/05/2024 3:23 PM CDT XR CHEST 1 VIEW PORTABLE STAT 04/05/2024 3:15 PM CDT XR ABDOMEN 1 VIEW PORTABLE Routine 04/05/2024 1:35 PM CDT MR HEAD BRAIN WO Routine 04/05/2024 10:3 5 AM CDT GLUCOSE METER Timed 04/05/2024 9:37 AM CDT SCAN-CARDIAC STRIP 04/05/2024 7: 59 AM CDT GLUCOSE METER Timed 04/05/2024 6:47 AM CDT CBC W PLT NO DIFF RUY 04/05/2024 4:2 1 AM CDT BASIC METABOLIC PANEL RYU 04/05/2024 4:21 AM CDT MAGNESIUM Early AM 04/05/2024 4:21 AM CDT HEMOGLOBIN A1C SCREENING Early AM 04/05/2024 4:21 AM CDT LIPID PANEL Early AM 04/05/2024 4:21 AM CDT GLUCOSE METER Timed 04/05/2024 3:43 AM CDT SCAN-CARDIAC STRIP 04/05/2024 12 :38 AM CDT HEMOGLOBIN A1C Today 04/04/2024 11:30 PM CDT PLATELET COUNT STAT 04/04/2024 11:30 PM CDT GLUCOSE METER Timed 04/04/2024 11:17 PM CDT IR ANGIO NEURO-INTERVENTIONAL STAT 04/04/2024 10:[address] ANGIO HEAD NECK CAROTID STROKE PROTOCOL RUDI CANDIDAT STAT 04/04/2024 10:26 PM CDT ECHO TTE COMPLETE W CONTRAST W BUBBLE Routine 04/01/2024 4:23 PM CDT Stroke (HC) SCAN-CT INTERPRETATION 4 12:00 AM CDT SCAN-CT INTERPRETATION 4 12:00 AM CDT SCAN-MRI INTERPRETATION 03/31/2024 12:00 AM CDT SCAN-CT INTERPRETATION 4 12:00 AM CDT SDNA-FIT EXTERNAL (COLOGUARD) Routine 09/20/2023 6:00 AM HOUSEKEEPER Screening for colon cancer XR MAMMO JD BILAT SCREEN Routine 09/14/2023 9:09 AM HOUSEKEEPER Screening breast examination XR DXA BONE DENSITY 2 SITES AXIAL Routine 09/14/2023 8:57 AM HOUSEKEEPER Osteopenia, unspecified location Post-menopausal OCCULT BLOOD IFOBT STOOL Routine 04/22/2022 2:40 PM CDT Screening for colon cancer from Last 3 Months or Most Recently Relevant to Health Maintenance Results * MAGNESIUM (04/06/2024 5:40 AM CDT) Only the most recent of2 resultswithin the time period is included. MAGNESIUM 2.1 1.6 - 2.4 mg/dL 04/06/2024 6:31 AM CDT [facility] Blood BLOOD SPECIMEN / Unknown Venipuncture / Unknown 04/06/2024 5:40 AM CDT 04/06/2024 6:02 AM CDT Yinka Alcocer MD CHEMISTRY [facility] [address] [place] [phone], * (ABNORMAL) BASIC METABOLIC PANEL (04/06/2024 5:40 AM CDT) Only the most recent of2 resultswithin the time period is included. SODIUM 141 136 - 145 mmol/L 04/06/2024 6:50 AM CDT [facility] POTASSIUM 4.2 3.5 - 5.1 mmol/L 04/06/2024 6:50 AM CDT [facility] CHLORIDE 107 98 - 107 mmol/L 04/06/2024 6:50 AM CDT [facility] CO2,TOTAL 23 22 - 29 mmol/L 04/06/2024 6:50 AM CDT [facility] ANION GAP 11 5 - 18 04/06/2024 6:50 AM CDT [facility] GLUCOSE 103(H) 70 - 99 mg/dL 04/06/2024 6:50 AM CDT [facility] CALCIUM 8.9 8.8 - 10.2 mg/dL 04/06/2024 6:50 AM CDT [facility] BUN 10 8 - 23 mg/dL 04/06/2024 6:50 AM CDT [facility] CREATININE 0.49(L) 0.50 - 0.90 mg/dL 04/06/2024 6:50 AM CDT [facility] BUN/CREAT RATIO 20 10 - 20 6:50 AM CDT [facility] eGFR >90 >90 mL/min/1.7 3m2 04/06/2024 6:50 AM CDT [facility] Comment:As of 2021, eG FR is calculated by the CKD-EPI creatinine equation without race adjustment. ??eGFR can be influenced by muscle mass, exercise, and diet. ??The reported eGFR is an estimation only and is only applicable if the renal function is stable. Blood BLOOD SPECIMEN / Unknown Venipuncture / Unknown 04/06/2024 5:40 AM CDT 04/06/2024 6:02 AM CDT Yinka Alcocer MD CHEMISTRY Performing Organization Address City/State/[facility] Co de Phone Number [facility] [address] [place] [phone], * (ABNORMAL) GLUCOSE METER (04/06/2024 4:32 AM CDT) Only the most recent of8 resultswithin the time period is included. [facility] Signature GLUCOSE METER 107(H) 65 - 100 mg/dL 04/06/2024 7:35 AM CDT [facility] Blood BLOOD SPECIMEN / Unknown 04/06/2024 4:32 AM CDT 04/06/2024 7:35 AM CDT Yinka Alcocer MD CHEMISTRY [facility] [address] [place] [address], * SCAN-CARDIAC STRIP (04/05/2024 8:45 PM CDT) Scanner OTHER * XR CHEST 1 VIEW PORTABLE (04/05/2024 3:15 PM CDT) Anatomical Region Laterality Modality HEART, THORAX, CHEST Digital Rad iography 04/05/2024 4:55 PM CDT Impressions 04/05/2024 4:55 PM CDT Enteric tube is located within the right upper quadrant, likely located in the distal stomach. Dictated by Baldev Meléndez MD @ Apr 05 2024 ??4:55PM (Electronically Signed) [email or web address] Narrative 04/05/2024 4:55 PM CDT For Patients: ??As a result of the Cures Act, medical imaging exams and procedure reports are released immediately into your electronic medical record. ??You may view this report before your referring provider. ??If you have questions, please contact your health care provider. INDICATION: Tube placement TECHNIQUE: Chest 1 view COMPARISON: Abdominal film same day FINDINGS: Enteric tube is located within the right upper quadrant. Cardiac silhouette enlarged. Chronic prominence of the interstitial markings. No pleural effusion. Procedure Note Baldev Meléndez MD - 04/05/2024 For Patients: As a result of the Cures Act, medical imagingexams and procedure reports are released immediately into your electronicmedical record. You may view this report before your referring provider.If you have questions, please contact your health care provider. INDICATION: Tube placement TECHNIQUE: Chest 1 view COMPARISON: Abdominal film same day FINDINGS: Enteric tube is located within the right upper quadrant. Cardiacsilhouette enlarged. Chronic prominence of the interstitial markings. Nopleural effusion. IMPRESSION: Enteric tube is located within the right upper quadrant, likely located inthe distal stomach. Dictated by Baldev Meléndez MD @ Apr 05 2024 4:55PM (Electronically Signed) [email or web address] Yinka FLANAGANIN G * XR ABDOMEN 1 VIEW PORTABLE (04/05/2024 1:35 PM CDT) Anatomical Region Laterality Modality Abdomen Digital Radiogra phy 04/05/2024 4:56 PM CDT Impressions 04/05/2024 4:56 PM CDT Enteric tube is present within the distal stomach. Although the appearance appears unusual, when correlated with the prior CT, the tube follows the expected contour of the stomach. Dictated by Baldev Meléndez MD @ Apr 05 2024 ??4:56PM (Electronically Signed) [email or web address] Narrative 04/05/2024 4:56 PM CDT For Patients: ??As a result of the Cures Act, medical imaging exams and procedure reports are released immediately into your electronic medical record. ??You may view this report before your referring provider. ??If you have questions, please contact your health care provider. Indication: Tube placement Technique: Abdomen one view Comparison: 01/05/2016 Procedure Note Baldev Meléndez MD - 04/05/2024 For Patients: As a result of the Cures Act, medical imagingexams and procedure reports are released immediately into your electronicmedical record. You may view this report before your referring provider.If you have questions, please contact your health care provider. Indication: Tube placement Technique: Abdomen one view Comparison: 01/05/2016 IMPRESSION: Enteric tube is present within the distal stomach. Although the appearanceappears unusual, when correlated with the prior CT, the tube follows theexpected contour of the stomach. Dictated by Baldev Meléndez MD @ Apr 05 2024 4:56PM (Electronically Signed) [email or web address] Yinka FLANAGANIN G * MR Head without contrast (04/05/2024 10:35 AM CDT) Anatomical Region Laterality Modality BRAIN, HEAD Magnetic Resonan ce 04/05/2024 9:57 PM CDT Impressions 04/05/2024 9:57 PM CDT 1. 2.6 cm x 1.7 cm ovoid acute/early subacute infarct in the left shoemaker radiata extending into the superior basal ganglia. In addition, very small acute/early subacute infarcts are seen in the left insular cortex, subinsular region, and left inferior parietal lobule. 2. Evolving small late subacute infarct in the right occipital lobe. 3. Mild generalized parenchymal volume loss and findings likely reflecting sequela of chronic small vessel ischemia. Dictated by Luis Alberto Lira MD @ 04/05/2024 9:57:19 PM (Electronically Signed) Narrative 04/05/2024 9:57 PM CDT For Patients: ??As a result of the Cures Act, medical imaging exams and procedure reports are released immediately into your electronic medical record. ??You may view this report before your referring provider. ??If you have questions, please contact your health care provider. CLINICAL HISTORY: Left MCA occlusion status post mechanical thrombectomy. TECHNIQUE: Multi-sequence, multiplanar MRI examination of the brain was performed. COMPARISON: Head CT dated 04/04/2024. FINDINGS: There is an ovoid area of restricted diffusion, with associated subtle T2/FLAIR hyperintensity, measuring approximally 2.6 cm x 1.7 cm and centered in the left shoemaker radiata and superior basal ganglia most consistent with an acute/early subacute infarct. Very small areas of restricted diffusion with associated T2/FLAIR hyperintensity are also seen in the left subinsular region, insular cortex, and the inferior left parietal lobule. Evolving small late subacute infarct is seen in the right occipital lobe. No intracranial hemorrhage, extra-axial collection, mass effect or midline shift. Mild generalized parenchymal volume loss with resulting prominence of cerebral sulci and the ventricular system. Scattered foci and patchy T2/FLAIR hyperintensity in the white matter of both hemispheres likely reflects sequela of chronic small-vessel ischemia. The calvarium is unremarkable. Leftward gaze deviation. Mild mucosal thickening of the ethmoid air cells. The mastoid air cells are well aerated. Procedure Note Luis Alberto Lira MD - 04/05/2024 For Patients: As a result of the Cures Act, medical imagingexams and procedure reports are released immediately into your electronicmedical record. You may view this report before your referring provider.If you have questions, please contact your health care provider. CLINICAL HISTORY: Left MCA occlusion status post mechanical thrombectomy. TECHNIQUE: Multi-sequence, multiplanar MRI examination of the brain was performed. COMPARISON: Head CT dated 04/04/2024. FINDINGS: There is an ovoid area of restricted diffusion, with associated subtleT2/FLAIR hyperintensity, measuring approximally 2.6 cm x 1.7 cm andcentered in the left shoemaker radiata and superior basal ganglia mostconsistent with an acute/early subacute infarct. Very small areas ofrestricted diffusion with associated T2/FLAIR hyperintensity are also seenin the left subinsular region, insular cortex, and the inferior leftparietal lobule. Evolving small late subacute infarct is seen in the rightoccipital lobe. No intracranial hemorrhage, extra-axial collection, mass effect or midlineshift. Mild generalized parenchymal volume loss with resulting prominence ofcerebral sulci and the ventricular system. Scattered foci and patchyT2/FLAIR hyperintensity in the white matter of both hemispheres likelyreflects sequela of chronic small-vessel ischemia. The calvarium is unremarkable. Leftward gaze deviation. Mild mucosalthickening of the ethmoid air cells. The mastoid air cells are wellaerated. IMPRESSION: 1. 2.6 cm x 1.7 cm ovoid acute/early subacute infarct in the left coronaradiata extending into the superior basal ganglia. In addition, very smallacute/early subacute infarcts are seen in the left insular cortex,subinsular region, and left inferior parietal lobule. 2. Evolving small late subacute infarct in the right occipital lobe. 3. Mild generalized parenchymal volume loss and findings likely reflectingsequela of chronic small vessel ischemia. Dictated by Luis Alberto Lira MD @ 04/05/2024 9:57:19 PM (Electronically Signed) Edgar Sawant MD MR * SCAN-CARDIAC STRIP (04/05/2024 7:59 AM CDT) Scanner OTHER * Hemoglobin A1C Screening (04/05/2024 4:21 AM CDT) HEMOGLOBIN A1C SCREENING 6.0 <=6.4 % 04/05/2024 9:50 AM CDT [facility] Blood BLOOD SPECIMEN / Unknown Venipuncture / Unknown 04/05/2024 4:21 AM CDT 04/05/2024 4:32 AM CDT [facility] - 04/05/2024 9:50 AM CDT ? (<5.7%) ?Normal ? (5.7% to 6.4%) ? Indicates prediabetes ? (>=6.5%) ? Confirms diabetes Falsely low levels may be seen with: Recent Transfusion, Recent Significant Blood Loss, Hemolytic Diseases, or Falsely elevated levels may be seen with: Untreated Anemias, Splenectomy Edgar Sawant MD CHEMISTRY [facility] [address] [place] [address], * (ABNORMAL) CBC W PLT NO DIFF (04/05/2024 4:21 AM CDT) WHITE BLOOD COUNT 7.2 4.5 - 11.0 thou/cu mm 04/05/2024 8:12 AM [facility] RED BLOOD COUNT 3.85(L) 4.00 - 5.20 mil/cu mm 04/05/2024 8:12 AM [facility] HEMOGLOBIN 11.4(L) 12.0 - 16.0 g/dL 04/05/2024 8:12 AM [facility] HEMATOCRIT 35.9 33.0 - 51.0 % 04/05/2024 8:12 AM [facility] MCV 93 80 - 100 fL 04/05/2024 8:12 AM T [facility] MCH 29.6 26.0 - 34.0 pg 04/05/2024 8:12 AM [facility] MCHC 31.8(L) 32.0 - 36.0 g/dL 04/05/2024 8:12 AM CDT [facility] RDW 18.6(H) 11.5 - 15.5 % 04/05/2024 8:12 AM CDT [facility] PLATELET COUNT 325 140 - 440 thou/cu mm 04/05/2024 8:12 AM CDT [facility] MPV 12.0(H) 6.5 - 11.0 fL 04/05/2024 8:12 AM CDT [facility] NRBC 0.0 % 04/05/2024 8:12 AM CDT [facility] ABS NRBC 0.0 thou /cu mm 04/05/2024 8:12 AM CDT [facility] Blood BLOOD SPECIMEN / Unknown Venipuncture / Unknown 04/05/2024 4:21 AM CDT 04/05/2024 4:32 AM CDT Leti Sarmiento MD HEMATOLOGY [facility] [address] [place] [place] [address], * (ABNORMAL) Lipid Panel (04/05/2024 4:21 AM CDT) CHOLESTEROL,TOTAL 155 100 - 199 mg/dL 04/05/2024 5:04 AM CDT [facility] Comment: Cholesterol, Total Reference Ranges Desirable <200 mg/dL Borderline 200-239 mg/dL High >=240 mg/dL TRIGLYCERIDES 159(H) <150 mg/dL 04/05/2024 5:04 AM CDT [facility] HDL CHOLESTEROL 40(L) >40 mg/dL 5:04 AM CDT [facility] NON-HDL CHOLESTEROL 115 <145 mg/dl 04/05/2024 5:04 AM CDT [facility] CHOL/HDL RATIO 3.88 <4.50 04/05/2024 5:04 AM CDT [facility] LDL CHOLESTEROL 83 <=130 mg/dL 04/05/2024 5:04 AM CDT [facility] VLDL CHOLESTEROL 32(H) <=30 mg/dL 04/05/2024 5:04 AM CDT [facility] PROVIDER ORDERED STATUS RANDOM 04/05/2024 5:04 AM CDT [facility] Blood BLOOD SPECIMEN / Unknown Venipuncture / Unknown 04/05/2024 4:21 AM CDT 04/05/2024 4:32 AM CDT Edgar Sawant MD CHEMISTRY Performing Organization Address City/[facility]/ZIP Co de Phone Number [facility] [address] [place] [address], * SCAN-CARDIAC STRIP (04/05/2024 12:38 AM CDT) Scanner OTHER * (ABNORMAL) PLATELET COUNT (04/04/2024 11:30 PM CDT) PLATELET COUNT 336 140 - 440 thou/cu mm 04/05/2024 12:05 AM CDT [facility] MPV 11.4(H) 6.5 - 11.0 fL 04/05/2024 12:05 AM CDT [facility] Blood BLOOD SPECIMEN / Unknown Venipuncture / Unknown 04/04/2024 11:30 PM CDT 04/04/2024 11:42 PM CDT Edgar Sawant MD HEMATOLOGY [facility] [address] [place] [address], * Hemoglobin A1C (04/04/2024 11:30 PM CDT) HEMOGLOBIN A1C MONITORING (POCT) 5.9 <=6.4 % 04/05/2024 10:42 AM CDT [facility] Blood BLOOD SPECIMEN / Unknown Venipuncture / Unknown 04/04/2024 11:30 PM CDT 04/04/2024 11:42 PM CDT Narrative [facility] - 04/05/2024 10:42 AM CDT ? (<=6.9%) ? Indicates good control ? (7.0% to 7.9%) ? Indicates fair control ? (>=8.0%) ? Indicates poor control ?? NOTE: ??These thresholds are guidelines and ?individual targets may vary. Falsely low levels may be seen with: Recent Transfusion, Recent Significant Blood Loss, Hemolytic Diseases, or Falsely elevated levels may be seen with: Untreated Anemias, Splenectomy ? Leti Sarmiento MD CHEMISTRY [facility] [address] [place] [id number], * IR ANGIO NEURO-INTERVENTIONAL (04/04/2024 10:28 PM CDT) Anatomical Region Laterality Modality X-Ray Angiograph y Narrative 04/05/2024 12:03 AM CDT Neurointerventional Operative Report Patient: Ino Smith (1955), Date: 04/05/2024 Physician(s): Luis Alberto Lira MD Procedure(s): Mechanical thrombectomy: Left middle cerebral artery occlusion (CPT 29469) Ultrasound guided vascular access: Right common femoral artery (CPT +39370) Pre-operative diagnosis (indication): Acute ischemic stroke due to large vessel occlusion. 69-year-old woman with aphasia and mild right-sided weakness; NIHSS 6. IV-tPA not administered. CTA confirms an occlusion of the dominant inferior trunk of the left MCA ??and a favorable ASPECTS (10). Post-operative diagnosis: Same Anesthesia: Local 1% Lidocaine only. Continuous cardiorespiratory monitoring was performed by a nurse trained in conscious sedation. Consent: Emergency consent; family not available. Time-out: Deferred due to the emergent nature of the procedure. Description: The patient was placed in the supine position on the angiography table. Both groins were sterilely prepped and draped. Lidocaine 1% was used for local anesthesia. Ultrasound evaluation of the right groin for potential access site was performed. After successfully identifying a patent right common femoral artery, the vessel was accessed with a micropuncture set using realtime ultrasound guidance, and an 8F sheath was inserted (ARTERIAL PUNCTURE TIME: 2139). A permanent recording was created for the patient record. A 90 cm 088 Neuron MAX long sheath with an inner Penumbra Select Henry catheter was used to selectively catheterize the left internal carotid artery. DSA imaging of the cervical and cranial vessels was performed (TIME OF INITIAL CLOT IDENTIFICATION: 2144). A RED 62 aspiration catheter was advanced into the occluded inferior trunk of the left MCA over a RED 43 catheter and Paulie 024 microwire. Direct aspiration was performed on the face of the clot using the ADAPT technique (TIME OF FIRST PASS: 2149). Initial post-thrombectomy angiography showed TICI 3 reperfusion (TIME OF INITIAL/FINAL REPERFUSION: 2151). The catheters and sheath were removed. Hemostasis was achieved using an 8F AngioSeal device after right femoral angiography. A sterile dressing was applied. Complications: None Findings: As above Specimens: None Estimated blood loss: 100 mL Medications: As above Fluoroscopy time: 8 minutes, 10 seconds. Impression: Successful mechanical thrombectomy of the left middle cerebral artery resulting in TICI 3 reperfusion. Luis Alberto Lira M.D. Neurointerventional Radiologist [facility] [place] Pager: Office/Appointments: Answering Service: [facility] Transfer Center: [email or web address] Luis Alberto Lira MD IR * CTA HEAD NECK CAROTID STROKE PROTOCOL RUDI CANDIDAT (04/04/2024 10:26 PM CDT) Anatomical Region Laterality Modality BRAIN, NECK Computed Tomogra phy 04/04/2024 11:0 4 PM CDT Addenda Addendum by Luis Alberto Lira MD on 04/04/2024 11:14 PM CDT For Patients: ??As a result of the Cures Act, medical imaging exams and procedure reports are released immediately into your electronic medical record. ??You may view this report before your referring provider. ?? If you have questions, please contact your health care provider. CLINICAL HISTORY: Left MCA occlusion status post mechanical thrombectomy. TECHNIQUE: Standard helical CT image acquisition through the head following the administration of intravenous contrast was performed. 3D and MIP reconstructions were performed at a separate workstation and permanently archived. COMPARISON: CTA head and neck from earlier the same day. FINDINGS: There has been interval recanalization of the previously seen occlusion of the dominant inferior trunk of the left MCA. No evidence of intracranial proximal large vessel occlusion or flow-limiting luminal stenosis. Note is made of relatively poor opacification of distal cortical branches of the right ULTRASOUND TECHNOLOGIST SONOGRAPHER, likely autoregulatory and secondary to the known subacute infarct in the right occipital lobe. 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 No findings to suggest an arterial-venous shunting lesion. The major dural venous sinuses and deep venous system are patent. IMPRESSION: 1. Interval recanalization of the previously seen occlusion of the dominant inferior trunk of the left MCA. 2. Incidental 2.5mm left ophthalmic ICA aneurysm. For consultation with our Neurointerventional service at [facility] regarding this patient`s cerebral aneurysm, please call [phone] to make arrangements with our coordinator.: For consultation with our Neurointerventional service at [facility] regarding this patient`s cerebral aneurysm, please call [phone] to make arrangements with our coordinator.: Please note that all CT scans at this facility use dose modulation, iterative reconstruction, and/or weight-based dosing when appropriate to reduce radiation dose to as low as reasonably achievable. Dictated by Luis Alberto Lira MD @ 04/04/2024 11:14:18 PM (Electronically Signed) Addendum by Luis Alberto Lira MD on 04/04/2024 11:10 PM CDT For Patients: ??As a result of the Cures Act, medical imaging exams and procedure reports are released immediately into your electronic medical record. ??You may view this report before your referring provider. ?? If you have questions, please contact your health care provider. CLINICAL HISTORY: Left MCA occlusion status post mechanical thrombectomy. TECHNIQUE: Standard helical CT image acquisition through the neck was performed after intravenous contrast bolus enhancement. 3D and MIP reconstructions were performed at a separate workstation and permanently archived. COMPARISON: CTA head and neck from earlier the same day. FINDINGS: The origins of the great vessels from the aortic arch are patent. ??The common carotid arteries are patent. No significant luminal stenoses of the proximal ICAs by NASCET criteria. The more distal cervical segments of the ICAs are patent. The origins and cervical segments of the vertebral arteries are patent. Note is made of a corrugated morphology of the cervical ICAs and vertebral arteries. IMPRESSION: 1. Patent cervical arterial vasculature without hemodynamically significant luminal stenosis. 2. Findings in the cervical vasculature are suggestive of underlying fibromuscular dysplasia. Please note that all CT scans at this facility use dose modulation, iterative reconstruction, and/or weight-based dosing when appropriate to reduce radiation dose to as low as reasonably achievable. Dictated by Luis Alberto Lira MD @ 04/04/2024 11:09:52 PM (Electronically Signed) Impressions 04/04/2024 11:04 PM CDT 1[address] No CT evidence of acute intracranial hemorrhage 2. Small focal area of contrast staining in the left subinsular region likely reflecting an area of acute infarct. 3. Known subacute infarct in the right occipital lobe. Please note that all CT scans at this facility use dose modulation, iterative reconstruction, and/or weight-based dosing when appropriate to reduce radiation dose to as low as reasonably achievable. Dictated by Luis Alberto Lira MD @ 04/04/2024 11:04:38 PM (Electronically Signed) Narrative 04/04/2024 11:04 PM CDT For Patients: ??As a result of the 21st Century Cures Act, medical imaging exams and procedure reports are released immediately into your electronic medical record. ??You may view this report before your referring provider. ??If you have questions, please contact your health care provider. CLINICAL HISTORY: Left MCA occlusion status post mechanical thrombectomy. TECHNIQUE: Standard helical CT image acquisition through the head was performed. COMPARISON: Head CT from earlier the same day. FINDINGS: There is no acute intracranial hemorrhage, extra-axial collection, mass effect or midline shift. Andrew-white matter differentiation is preserved. Small focal area of contrast staining in the left subinsular region likely reflects an area of acute infarction. Small area of hypoattenuation in the right occipital lobe in keeping with the known subacute infarct. Chronic lacunar infarct in the right centrum semiovale. Patchy hypoattenuation in the white matter of both hemispheres likely reflect sequela of chronic small vessel ischemia. The calvarium is unremarkable. Leftward gaze deviation. The paranasal sinuses and mastoid air cells are well aerated. Procedure Note Luis Alberto Lira MD - 04/04/2024 For Patients: As a result of the Cures Act, medical imagingexams and procedure reports are released immediately into your electronicmedical record. You may view this report before your referring provider.If you have questions, please contact your health care provider. CLINICAL HISTORY: Left MCA occlusion status post mechanical thrombectomy. TECHNIQUE: Standard helical CT image acquisition through the head was performed. COMPARISON: Head CT from earlier the same day. FINDINGS: There is no acute intracranial hemorrhage, extra-axial collection, masseffect or midline shift. Andrew-white matter differentiation is preserved.Small focal area of contrast staining in the left subinsular region likelyreflects an area of acute infarction. Small area of hypoattenuation in theright occipital lobe in keeping with the known subacute infarct. Chroniclacunar infarct in the right centrum semiovale. Patchy hypoattenuation inthe white matter of both hemispheres likely reflect sequela of chronicsmall vessel ischemia. The calvarium is unremarkable. Leftward gazedeviation. The paranasal sinuses and mastoid air cells are well aerated. IMPRESSION: 1. No CT evidence of acute intracranial hemorrhage 2. Small focal area of contrast staining in the left subinsular regionlikely reflecting an area of acute infarct. 3. Known subacute infarct in the right occipital lobe. Please note that all CT scans at this facility use dose modulation,iterative reconstruction, and/or weight-based dosing when appropriate toreduce radiation dose to as low as reasonably achievable. Dictated by Luis Alberto Lira MD @ 04/04/2024 11:04:38 PM (Electronically Signed) Jair Arredondo DO CT * ECHO TTE COMPLETE W CONTRAST W BUBBLE (04/01/2024 4:23 PM CDT) AORTIC VALVE MEAN PG 8 mmHg EJECTION FRACTION 76 % LVEDD 4.1 cm EJECTION FRACTION 70 - 75% Anatomical Region Laterality Modality Ultrasound 04/01/2024 3:29 PM CDT Narrative 04/01/2024 4:48 PM CDT ECHOCARDIOGRAM INO SMITH ? Accession#: ?? [id number] : ?1955 69 years Study Date: ?? 04/01/2024 3:29:01 PM Gender: F ?BP: ? 160/91 mmHg Height: 160.00 cm ?BSA: ?2.13 m? ? ? Weight: 114.00 kg ?Tech: ? MBF ? Referring MD: PROVIDER REFERRING Site: ? [facility] Reading Location: [facility] Patient Location: Inpatient. Procedure: [...] documentation: 4 ml diluted Definity, lot #[id number], [facility]# [id number] was administered peripherally to enhance visualization of all left ventricular segments. . This study was interpreted by an [facility] accredited facility. CC: HIM (med records) [facility], Med[facility]Surg - [facility]. ??Final ?? Procedure Note Brendan Barton MD - 04/01/2024 ECHOCARDIOGRAM INO SMITH : 1955 69 years Study Date: 04/01/2024 3:29:01 PM Gender: F BP: 160/91 mmHg Height: 160.00 cm BSA: 2.13 m? ? ? Weight: 114.00 kg Tech: ENRIQUE Referring MD: PROVIDER REFERRING Site: [facility] Reading Location: Mobile [facility] Patient Location: Inpatient. Procedure: 2D w/ [...] documentation: 4 ml diluted Definity, lot #[id number], [facility]#[id number] was administered peripherally to enhance visualization of allleft ventricular segments. . This study was interpreted by an [facility] accredited facility. CC: HIM (med records) [facility], Med/Surg - IP [facility]. Final Provider Referring ECHO ORD * SCAN-MRI INTERPRETATION (03/31/2024 12:00 AM CDT) Anatomical Region Laterality Modality Other Scanner OTHER * SCAN-CT INTERPRETATION (03/31/2024 12:00 AM CDT) Only the most recent of3 resultswithin the time period is included. Anatomical Region Laterality Modality Other Scanner OTHER * SDNA-FIT EXTERNAL (COLOGUARD) (09/20/2023 6:00 AM HOUSEKEEPER) NONINV COLON CA DNA+OCC BLD SCRN STL-IMP Negative Negative 09/26/2023 7:35 PM CDT [email or web address] (CLIA #:[id number]) Comment: NEGATIVE TEST RESULT. A negative Cologuard [...] screened with both Cologuard and colonoscopy. (Bryant aGy al, N Engl J Med 2014;370(14):1286- 1297) The normal value (reference range) for this assay is negative. COLOGUARD RE-SCREENING RECOMMENDATION: Periodic colorectal cancer screening is an important part of preventive healthcare for asymptomatic individuals at average risk for colorectal cancer. ??Following a negative Cologuard result, the [place] [employer] and U.S. Multi-Society Task Force screening guidelines recommend a Cologuard re-screening interval of 3 years. References: [place] [employer] Guideline for Colorectal Cancer Screening: https://www.cancer.org/cancer/coosy-nkwatw-jxofqe/xepmcyxra-qvfaxqeko-prkbrvr/ac s-rec ommendations.html.; Matti DK, Eugenio CR, Stephanie PerdomoK, Colorectal Cancer Screening: Recommendations for Physicians and Patients from the U.S. Multi-Society Task Force on Colorectal Cancer Screening , Am J Gastroenterology 2017; 112:0978-3801. TEST DESCRIPTION: Composite algorithmic analysis of stool [...] screened with both Cologuard and colonoscopy. (Bryant Montes et al, N Engl J Med 2014;370(14):9996-3364.) Cologuard may produce a false negative or false positive result (no colorectal cancer or precancerous polyp present at colonoscopy follow up). A negative Cologuard test result does not guarantee the absence of CRC or advanced adenoma (pre-cancer). The current Cologuard screening interval is every 3 years. ([place] [employer] and U.S. Multi-Society Task Force). Cologuard performance data in a 10,000 patient pivotal study using colonoscopy as the reference method can be accessed at the following location: www.Socialthing/results. Additional description of the Cologuard test process, warnings and precautions can be found at www.CareSimplyrd.SnowGate. Stool specimen (specimen) (Rectum) 09/20/2023 6:00 AM HOUSEKEEPER 09/21/2023 12:29 PM HOUSEKEEPER Radha Vasquez MD URINE [email or web address] (CLIA #:[id number]) [place] [address], * XR MAMMO JD BILAT SCREEN (09/14/2023 9:09 AM HOUSEKEEPER) Anatomical Region Laterality Modality BREASTS, Breast Left, Breast Right Bilateral Mammography 09/14/2023 9:09 AM HOUSEKEEPER Impressions 09/14/2023 12:28 PM HOUSEKEEPER IMPRESSION: No evidence of malignancy. Recommend routine [...] health insurance. Recommendations are based on the [place] [employer] Appropriateness Criteria. Patients with a BI-RADS category of 0 should follow the recommendations for further evaluation before considering supplemental screening. Narrative 09/14/2023 12:28 PM HOUSEKEEPER EXAM: MAMMOGRAM SCREENING JD BILATERAL LOCATION: [facility] DATE: 09/14/2023 INDICATION: Asymptomatic. Screening Mammogram. COMPARISON: 09/11/22, 09/08/21 BREAST DENSITY: There are scattered areas of fibroglandular density. FINDINGS: Tomosynthesis craniocaudal and mediolateral oblique views were obtained. There is no evidence for spiculated masses, architectural distortion, asymmetry or suspicious calcifications. Procedure Note Angel Aguirre MD - 09/14/2023 EXAM: MAMMOGRAM SCREENING JD BILATERAL LOCATION: [facility] DATE: 09/14/2023 INDICATION: Asymptomatic. Screening Mammogram. [...] health insurance. Recommendations are based on the [place] [employer] Appropriateness Criteria. Patients with a BI-RADS category of 0 should follow the recommendations for further evaluation before considering supplemental screening. Radha Vasquez MD MAMMO * XR DXA BONE DENSITY 2 SITES AXIAL (09/14/2023 8:57 AM HOUSEKEEPER) Anatomical Region Laterality Modality Spine, HIPS, HIPL, HIPR Other 09/14/2023 8:57 AM HOUSEKEEPER Impressions 09/14/2023 12:03 PM HOUSEKEEPER IMPRESSION: Low bone density (OSTEOPENIA). T score meets the WHO criteria for low bone density (osteopenia) at one or more measured sites. The risk of osteoporotic fracture increases approximately two-fold for each standard deviation decrease in T-score. Narrative 09/14/2023 12:03 PM HOUSEKEEPER EXAM: BONE DENSITY LOCATION: [facility] [place] DATE: 09/14/2023 INDICATION: Other specified disorders of [...] PA-C - 09/14/2023 EXAM: BONE DENSITY LOCATION: [facility] DATE: 09/14/2023 INDICATION: Other specified disorders of [...] in T-score. Radha Vasquez MD DEXA * OCCULT BLOOD IFOBT STOOL (04/22/2022 2:40 PM CDT) [facility] STOOL BLOOD ,IFOBT Negative Negative 04/26/2022 2:53 PM CDT [facility] Stool STOOL SPECIMEN / Unknown Non-Blood / Unknown 04/22/2022 2:40 PM CDT 04/26/2022 2:41 PM CDT Radha Vasquez MD LABORATORY [facility] [address] [place] [address], [place] [phone] from Last 3 Months or Most Recently Relevant to Health Maintenance Advance Directives * Full Code (Latest Code Status on File) Date Activated Date Inactivated Comments 04/04/2024 10:59 PM Question Answer Comments Code Status Discussion: Reviewed Preferences * Full Code Date Activated Date Inactivated Comments 07/13/2023 6:36 AM 07/13/2023 1:12 PM Question Answer Comments Code Status Discussion: Reviewed Preferences * Full Code Date Activated Date Inactivated Comments 12/15/2008 3:11 PM 12/15/2008 6:22 PM * Full Code Date Activated Date Inactivated Comments 12/15/2008 12:13 PM 12/15/2008 3:11 PM * Full Code Date Activated Date Inactivated Comments 12/15/2008 12:13 PM 12/15/2008 12:13 PM Care Teams Individualized Education Plan Aide Relationship Specialty Start Date End Date Radha Vasquez MD PCP - General 09/27/09 [facility] [address], [place], [place] [id number] Ophthalmology Cardiopulmonary Physical Therapist 09/05/21
== END 2024-04-04 20:29 | disposition home or self-care (01) ==
LOC: AMB 04-06 08:29
PROVIDERS: PCP Family Medicine; Visit Provider Emergency Medicine Emergency Medical Services
DX: I63.9 Cerebral infarction, unspecified (principal)
CPT/HCPCS: A0425; A0427